=== PATIENT | female | born 1975 | race Caucasian/White ===

== ENCOUNTER 2020-01-07 17:02 | Emergency (ER) | payer OTHER, SELFPAY ==
--- NOTE | ~2020-01-07 | CT_ITS ---
EXAMINATION: CT abdomen pelvis w con DATE: 01/07/2020 18:31 INDICATION: Left upper quadrant abdominal pain. Flank pain. Nausea and vomiting. TECHNIQUE: Computed tomography (CT) of the abdomen and pelvis was performed with 100 mL Omnipaque 350 intravenous contrast. Automated exposure control and iterative reconstruction technique were employe d. The dose-length product was 719.38 mGy-cm. COMPARISON: CT abdomen and pelvis 11/29/2018 FINDINGS: The visualized portions of the lung bases demonstrate mild atelectasis. No pleural effusion . The heart size is normal. No pericardial effusion. There are cysts in the liver measuring up to 7 m m. The gallbladder, spleen, pancreas, adrenal glands, and kidneys are normal. There are no dilated lo ops of bowel. The appendix is normal. There are no pathologically enlarged lymph nodes. There is no f ree intraperitoneal fluid. There are fibroids in the uterus measuring up to 4.4 cm. There is severe l ower lumbar spondylosis. IMPRESSION: 1. Uterine fibroids. Reviewed, dictated and finalized at location A. STACKER IMPRESSION: 1. Uterine fibroids.
[2020-01-07 17:10] VITALS: BP 141/76; PULSE 69; RESP 16; TEMP 36.4; O2SAT 98
[2020-01-07 17:22] LABS: Basophils Percent Auto 0.3 % (0.2-1.2); Eosinophils Absolute Auto 0.4 K/mm3 (0-0.3); Eosinophils Percent Auto 6.6 % (0-4.4); Hematocrit 41.4 % (37.0-47.0); Immature Granulocyte Absolute 0.01 K/mm3 (0.00-0.031); Immature Granulocyte Percent A 0.1 % (0-0.5); Lymphocytes Absolute Auto 2.43 K/mm3 (0.9-3.2); Lymphocytes Percent Auto 36.2 % (18.3-44.2); Mean Corpuscular HGB Conc 33.8 g/dl (32-36); Mean Corpuscular Volume 79.9 fl (80-100); Mean Platelet Volume 9.1 fl (7.4-10.4); Monocytes Absolute Auto 0.4 K/mm3 (0.1-0.6); Monocytes Percent Auto 5.5 % (2.6-8.5); Neutrophils Absolute Auto 3.4 K/mm3 (1.3-6.7); Neutrophils Percent Auto 51.3 % (45.5-73.1); Platelet Count Result 221 k/mm3 (150-375); Red Blood Count 5.18 M/mm3 (4.2-5.4); Red Cell Distribution Width 14.4 % (11.5-14.5); White Blood Count 6.7 K/mm3 (4.5-10.0)
[2020-01-07 17:34] LABS: Alanine Aminotransferase 32 U/L (4-35); Albumin Level 4.3 g/dL (3.5-5.1); Alkaline Phosphatase 70 U/L (38-126); Anion Gap 9 mmol/L (8-16); Aspartate Amino Transferase 26 U/L (14-36); Bilirubin,Total 0.5 mg/dL (0.2-1.3); Blood Urea Nitrogen 15 mg/dL (7-17); Calcium 8.9 mg/dL (8.4-10.2); Carbon Dioxide 29 mmol/L (22-30); Chloride 104 mmol/L (98-107); Estimated CRCL calculation 103 ml/min; Estimated Glomerular Filt Rate > 60; Glucose 98 mg/dL (65-105); Lipase 96 U/L (23-300); Potassium 3.8 mmol/L (3.4-5.0); Sodium 142 mmol/L (137-145)
[2020-01-07 17:37] LABS: Add Urine Microscopic? YES; Appearance Urine Clear (Clear); Bilirubin Urine Negative (Negative); Blood Urine Negative (Negative); Color Urine Yellow (Yellow); Glucose Urine UA Negative (Negative); Ketones Urine Negative (Negative); Leukocyte Esterase Ur Negative LEU/UL (Negative); Mucus Urine Rare /lpf; Nitrate Urine Negative (Negative); Protein Urine Negative (Negative); Specific Grav Ur 1.024 (1.001-1.035); Squamous Epithelial Cell Urine Rare /hpf (Few)
[2020-01-07 17:57] VITALS: BP 145/76; PULSE 72; RESP 18; O2SAT 99
--- NOTE | 2020-01-07 19:35 | ED.GENADULT ---
HPI - General Adult General Chief complaint: Abdominal Pain Stated complaint: abd/back pain Time Seen by Provider: 01/07/20 17:30 Source: patient Mode of arrival: ambulatory Limitations: no limitations History of Present Illness HPI narrative: Patient presents with chief complaint of moving pains that are in her upper abdominal area and radiate downward as well as to her back. Patient states sometimes they are in her right and left side sometimes areas from the epigastric area. Patient denies fever, chills, nausea, vomiting or diarrhea associated with the pain. Patient denies having chest pain or shortness of breath. Patient states that she has had the symptoms for 2 to 3 weeks and her primary care initially thought that she had irritated her cartilage because it presented after she pushed a coffee table across the floor. Patient states sometimes the pain present when she is moving and other times it presents when she sitting still. Patient states that she has not had issues of muscle spasms or neuropathic pain before. She has been taking Aleve for the discomfort. Patient states other than having thyroid disorder she does not have any other medical symptoms. Patient states that she is having her thyroid medications adjusted and monitored closely by her primary care. Related Data Home Medications Medication Instructions Recorded Confirmed ascorbate calcium (vitamin C) 500 500 mg PO DAILY 08/21/19 08/21/19 mg tablet cetirizine 10 mg capsule 10 mg PO DAILY 08/21/19 08/21/19 cholecalciferol (vitamin D3) 25 1,000 unit PO DAILY cap 08/21/19 08/21/19 mcg (1,000 unit) capsule cyanocobalamin (vitamin B-12) 1,000 mcg PO DAILY 08/21/19 08/21/19 1,000 mcg capsule echinacea 380 mg capsule 380 mg PO DAILY 08/21/19 08/21/19 ferrous sulfate 325 mg (65 mg 325 mg PO DAILY 08/21/19 08/21/19 iron) tablet selenium 200 mcg capsule 200 mcg PO DAILY 08/21/19 08/21/19 Allergies Allergy/AdvReac Type Severity Reaction Status Date / Time ceftriaxone Allergy Unknown Verified 03/31/15 15:37 hydrocodone Allergy Unknown Verified 03/31/15 15:33 ketorolac Allergy Unknown Verified 03/31/15 15:36 metronidazole Allergy Unknown Verified 03/31/15 15:35 skin cleanser Allergy Unknown Hives Unverified 03/08/15 13:15 tramadol Allergy Unknown Verified 03/31/15 15:36 Review of Systems Review of Systems: Narrative: CONSTITUTIONAL: Denies fever, chills, or sweats. EYES: Denies visual changes, redness, or discharge. ENT: Denies rhinorrhea, congestion, sore throat, or otalgia. CARDIOVASCULAR: Denies chest pain, palpitations, or edema. RESPIRATORY: Denies cough or dyspnea. GASTROINTESTINAL: Reports abdominal pain, denies nausea, vomiting, or diarrhea. GENITOURINARY: Denies dysuria or hematuria. SKIN: Denies rash or itching. MUSCULOSKELETAL: Denies back pain, myalgia, or joint pain NEUROLOGIC: Denies headache, numbness, dizziness, or weakness. PSYCHIATRIC: Denies anxiety or depression. PMFSH Family History Family History Other Asthma Family history of anemia Family history of osteoporosis Family history of thyroid disease Hypertension Social History Social History Smoking status: Former smoker Smoking end date: 03/05/19 Alcohol intake: current Exam Narrative: Exam Narrative: GENERAL: Well-appearing, well-nourished, and in no acute distress. HEAD: Normocephalic, atraumatic. EYES: PERRLA and EOMI. ENT: Nares clear, no rhinorrhea or epistaxis. Mucous membranes moist. Oropharynx without tonsillar hypertrophy exudate or other lesions. Bilateral TMs pearly tabor nonbulging NECK: Supple. No adenopathy or masses. CHEST: Clear to auscultation. No respiratory distress. No wheezes rales or rhonchi HEART: Regular rate and rhythm. No murmur heard. Normal peripheral pulses. ABDOMEN: Soft, nontender, nondistended, normal acti
[2020-01-07 20:35] VITALS: BP 122/75; PULSE 61; RESP 18; O2SAT 100
== END 2020-01-07 20:36 | disposition home or self-care (01) ==
PROVIDERS: Emergency Medicine; Emergency Provider Emergency Medicine; PCP Internal Medicine Geriatric Medicine
DX: R10.10 Upper abdominal pain, unspecified (principal); Z87.891 Personal history of nicotine dependence; D25.9 Leiomyoma of uterus, unspecified
CPT/HCPCS: 36415; 74177; 80053; 81001; 81025; 83690; 85025; 96365; 99284; J0131; Q9967

== ENCOUNTER → 2020-03-12 13:22 | Outpatient (CLI) | payer OTHER, SELFPAY ==
--- NOTE | ~2020-03-12 | MM_ITS ---
EXAMINATION: MM screening [facility] BI w larissa HISTORY: Screening mammogram TECHNIQUE: Craniocaudal and mediolateral oblique 3-D tomosynthesis images were obtained and synthetic 2-D images were generated. CAD analysis was submitted and interpreted. COMPARISON: 01/03/2019, 01/02/2018, 12/28/2017, 11/17/2016 BREAST PARENCHYMAL COMPOSITION: The breasts are heterogeneously dense, which may obscure small masses . FINDINGS: There is no evidence of suspicious mass, calcification, or architectural distortion to sugg est malignancy in either breast. There has been no suspicious interval change. IMPRESSION: 1. No mammographic evidence of malignancy. 2. Recommend routine screening mammography in one year. BI-RADS Category 1: Negative Reviewed, dictated and finalized at location A. R HAND
== END ==
PROVIDERS: PCP Internal Medicine Geriatric Medicine; Visit Provider Obstetrics & Gynecology
DX: Z12.31 Encounter for screening mammogram for malignant neoplasm of breast (principal)
CPT/HCPCS: 77063; 77067

== ENCOUNTER → 2021-02-24 11:24 | Outpatient (CLI) | payer OTHER, SELFPAY ==
--- NOTE | ~2021-02-24 | US_ITS ---
EXAMINATION: US pelvic complete w TV DATE: 02/24/2021 12:58 INDICATION: Pelvic pain Comparison:12/04/2018 TECHNIQUE: Multiple transabdominal and endovaginal sonographic images of the pelvis performed. FINDINGS: The uterus measures 10.3 x 5.2 x 5.8 cm. Uterine fibroids, largest measuring 4.9 cm greates t dimension. The endometrial complex measures 16 mm. The right ovary measures 2.6 x 3.1 x 3.2 cm and the left ovary measures 2.1 x 1.8 x 1.8 cm. There is a 2.1 cm right ovarian cyst. There are small follicles in each ovary. Normal doppler signal in both o varies. There is no free fluid in the pelvis. There are no abnormal masses seen on either side. IMPRESSION: 1. Enlarged fibroid uterus with endometrial thickening measuring 16 mm. 2: Simple cyst of the right ovary measuring 2.1 cm maximum dimension. Reviewed, dictated and finalized at location A. TROLLER
== END ==
PROVIDERS: PCP Internal Medicine Geriatric Medicine; Visit Provider Obstetrics & Gynecology
DX: R10.2 Pelvic and perineal pain (principal); D25.9 Leiomyoma of uterus, unspecified; N83.201 Unspecified ovarian cyst, right side
CPT/HCPCS: 76830; 76856

== ENCOUNTER → 2021-04-14 15:08 | Outpatient (CLI) | payer OTHER, SELFPAY ==
--- NOTE | ~2021-04-14 | MM_ITS ---
EXAMINATION: MM screening [facility] BI w larissa HISTORY: Screening mammogram TECHNIQUE: Craniocaudal and mediolateral oblique 3-D tomosynthesis images were obtained and synthetic 2-D images were generated. CAD analysis was submitted and interpreted. COMPARISON: 03/12/2020, 01/03/2019, 01/02/2018, 12/28/2017 BREAST PARENCHYMAL COMPOSITION: The breasts are heterogeneously dense, which may obscure small masses . FINDINGS: There is no evidence of suspicious mass, calcification, or architectural distortion to sugg est malignancy in either breast. There has been no suspicious interval change. IMPRESSION: 1. No mammographic evidence of malignancy. 2. Recommend routine screening mammography in one year. BI-RADS Category 1: Negative Reviewed, dictated and finalized at location A. CHIEF
== END ==
PROVIDERS: PCP Internal Medicine Geriatric Medicine; Visit Provider Obstetrics & Gynecology
DX: Z12.31 Encounter for screening mammogram for malignant neoplasm of breast (principal)
CPT/HCPCS: 77063; 77067

== ENCOUNTER 2021-08-28 17:58 | Emergency (ER) | payer OTHER, SELFPAY ==
--- NOTE | ~2021-08-28 | XR_ITS ---
EXAM: XR finger 4th RT min 2V DATE: 08/28/2021 18:25 HISTORY: WASHING CAR,08/28/21. JAM RT 2ND DIGIT.PAIN DIP JT. . COMPARISON: None available. FINDINGS: Normal mineralization. No fracture or dislocation. Hyperextension of the fourth distal pha butcher. No lytic or blastic lesion. Joint spaces are maintained. No erosion or periosteal change. Soft tissues within normal limits. IMPRESSION: No acute osseous finding in the right fourth finger. The fourth DIP joint is held in exte nsion as can be seen with flexor tendon injury. Reviewed, dictated and finalized at location K. IMPRESSION: No acute osseous finding in the right fourth finger. The fourth DIP joint is held in extension as can be seen with flexor tendon injury.
[2021-08-28 18:05] VITALS: BP 122/78; PULSE 60; RESP 18; TEMP 37.1; O2SAT 98
--- NOTE | 2021-08-28 19:29 | ED.GENADULT ---
HPI - General Adult General Chief complaint: Extremity Injury, Upper Stated complaint: right hand finger injury Source: patient Mode of arrival: ambulatory Limitations: no limitations History of Present Illness HPI narrative: Patient presents for evaluation of an injury to the fourth digit of the right hand. She indicates she was washing her car just prior to arrival when she had abrupt onset pain in the fourth digit of the right hand. She believes she may have bumped part of her windshield washer. She felt nauseated and experienced a burning sensation in that digit. At rest her symptoms are not overly bothersome however she experiences considerable worsening of her symptoms with effort at flexing the DIP joint. She is right hand dominant. Related Data Home Medications Medication Instructions Recorded Confirmed azelastine 137 mcg (0.1 %) nasal spray intranasal 08/28/21 spray aerosol ergocalciferol (vitamin D2) 1,250 cap 08/28/21 mcg (50,000 unit) capsule levothyroxine 25 mcg tablet 1 tablet PO DAILY 08/28/21 08/28/21 Allergies Allergy/AdvReac Type Severity Reaction Status Date / Time ceftriaxone Allergy Unknown unknown Verified 07/28/21 16:48 hydrocodone Allergy Unknown unknown Verified 07/28/21 16:48 ketorolac Allergy Unknown unknown Verified 07/28/21 16:48 metronidazole Allergy Unknown unknown Verified 07/28/21 16:48 skin cleanser Allergy Unknown Hives Verified 07/28/21 16:48 tramadol Allergy Unknown unknown Verified 07/28/21 16:48 amoxicillin [From Augmentin] Allergy Hives Verified 08/28/21 18:50 clavulanic acid Allergy Hives Verified 08/28/21 18:50 [From Augmentin] Review of Systems Review of Systems: CONSTITUTIONAL: Denies fever, chills, or sweats. EYES: Denies visual changes, redness, or discharge. ENT: Denies rhinorrhea, congestion, sore throat, or otalgia. CARDIOVASCULAR: Denies chest pain, palpitations, or edema. RESPIRATORY: Denies cough or dyspnea. GASTROINTESTINAL: Denies abdominal pain, nausea, vomiting, or diarrhea. GENITOURINARY: Denies dysuria or hematuria. SKIN: Denies rash or itching. MUSCULOSKELETAL: Reports pain and decreased range of motion in the fourth digit of the right hand. Denies back pain NEUROLOGIC: Denies headache, numbness, dizziness, or weakness. PSYCHIATRIC: Denies anxiety or depression. [facility] Past Medical History Medical History Hyperthyroidism Surgical History Surgical History History of thyroid surgery Family History Family History Other Asthma Family history of anemia Family history of osteoporosis Family history of thyroid disease Hypertension Social History Social History Smoking status: Former smoker Smoking end date: 03/05/19 Alcohol intake: current Substance use: never Living arrangements: with family Gender identity (if verbalized by the patient): Female Sexual Orientation (if Verbalized by the Patient): Straight or Heterosexual Spiritual care concerns: No Exam Narrative: GENERAL: Well-appearing, well-nourished, and in no acute distress. HEAD: Normocephalic, atraumatic. EYES: PERRLA and EOMI. ENT: Nares clear, no rhinorrhea or epistaxis. Mucous membranes moist. Oropharynx without tonsillar hypertrophy exudate or other lesions. Bilateral TMs pearly tabor nonbulging NECK: Supple. No adenopathy or masses. No carotid bruits or JVD CHEST: Clear to auscultation. No respiratory distress. No wheezes rales or rhonchi HEART: Regular rate and rhythm. No murmur heard. Normal peripheral pulses. ABDOMEN: Soft, nontender, nondistended, normal active bowel sounds. EXTREMITIES: No point tenderness in the proximal, middle, distal phalanges of the fourth digit of the right hand nor over the DIP or P
== END 2021-08-28 19:10 | disposition home or self-care (01) ==
PROVIDERS: Emergency Provider Nurse Practitioner
DX: S69.91XA Unspecified injury of right wrist, hand and finger(s), initial encounter (principal); X58.XXXA Exposure to other specified factors, initial encounter; E05.90 Thyrotoxicosis, unspecified without thyrotoxic crisis or storm; Z87.891 Personal history of nicotine dependence
CPT/HCPCS: 29130; 73140; 99213; G0463

== ENCOUNTER → 2022-04-04 11:37 | Outpatient (CLI) | payer OTHER, SELFPAY ==
--- NOTE | ~2022-04-04 | MR_ITS ---
EXAMINATION: MR orbits face neck wo con DATE: 04/04/2022 12:16 INDICATION: Localized swelling, mass and lump, neck. TECHNIQUE: Magnetic resonance imaging (MRI) of the neck was performed without intravenous contrast. COMPARISON: chest CT 05/17/09, thyroid ultrasound 03/09/15 FINDINGS: There is mild mucosal thickening in the paranasal sinuses. There is symmetric subcutaneous fat stranding in the cheeks, which may be changes of a cosmetic procedure. There are changes of thyro idectomy. Anterior to the trachea and extending into the superior mediastinum, there is a 2.1 x 1.5 x 5.8 cm mass. There are no pathologically enlarged lymph nodes. There is a small left mastoid effusio n. IMPRESSION: 1. Mass anterior to the trachea and extending into the superior mediastinum with increase in size fro m 05/17/2009, most likely ectopic thyroid. Consider thyroid scintigraphy for confirmation. Reviewed, dictated and finalized at location A. PRESIDENT CLIENT SERVICES IMPRESSION: 1. Mass anterior to the trachea and extending into the superior mediastinum wit h increase in size from 05/17/2009, most likely ectopic thyroid. Consider thyroi d scintigraphy for confirmation.
== END ==
PROVIDERS: PCP Internal Medicine Geriatric Medicine; Visit Provider Internal Medicine Geriatric Medicine
DX: R22.1 Localized swelling, mass and lump, neck (principal)
CPT/HCPCS: 70540

== ENCOUNTER 2022-04-18 06:54 | Outpatient (CLI) | payer OTHER, SELFPAY ==
--- NOTE | ~2022-04-18 | NM_ITS ---
EXAMINATION: NM thyroid scan w uptake DATE: 04/19/2022 08:08 INDICATION: Neck mass. COMPARISON: Neck MRI 04/04/2022, ultrasound 03/09/15 TECHNIQUE: 0.496 mCi I-123 was administered orally. Scintigraphic images of the thyroid gland were o btained at 24 hours. Thyroid uptake was calculated by the technologist. FINDINGS: The uptake in the thyroidectomy bed is 0%. There is uptake in the mass anterior to the trachea and in the anterior mediastinum seen on the prior MRI confirming that the mass is ectopic thyroid. IMPRESSION: 1. Ectopic thyroid anterior to the trachea and extending into the superior mediastinum correlating w ith the MRI abnormality. Reviewed, dictated and finalized at location A. WELL PERFORATOR OPERATOR IMPRESSION: 1. Ectopic thyroid anterior to the trachea and extending into the superior med iastinum correlating with the MRI abnormality.
== END 2022-04-18 06:55 | disposition home or self-care (01) ==
PROVIDERS: PCP Internal Medicine Geriatric Medicine; Visit Provider Internal Medicine Geriatric Medicine
DX: R22.1 Localized swelling, mass and lump, neck (principal)
CPT/HCPCS: 78014; A9516

== ENCOUNTER → 2022-04-21 13:19 | Outpatient (CLI) | payer OTHER, SELFPAY ==
--- NOTE | ~2022-04-21 | MM_ITS ---
EXAMINATION: MM screening [facility] BI w larissa HISTORY: Screening mammogram TECHNIQUE: Craniocaudal and mediolateral oblique 3-D tomosynthesis images were obtained and synthetic 2-D images were generated. CAD analysis was submitted and interpreted. COMPARISON: April 14, 2021, March 12, 2020, January 03, 2019 bilateral screening mammogram examin ations BREAST PARENCHYMAL COMPOSITION: The breasts are heterogeneously dense, which may obscure small masses . FINDINGS: There is no evidence of suspicious mass, calcification, or architectural distortion to sugg est malignancy in either breast. There has been no suspicious interval change. IMPRESSION: 1. No mammographic evidence of malignancy. 2. Recommend routine screening mammography in one year. BI-RADS Category 1: Negative Reviewed, dictated and finalized at location A. E CASE MANAGER
== END ==
PROVIDERS: PCP Internal Medicine Geriatric Medicine; Visit Provider Obstetrics & Gynecology
DX: Z12.31 Encounter for screening mammogram for malignant neoplasm of breast (principal)
CPT/HCPCS: 77063; 77067

== ENCOUNTER 2022-08-02 01:09 | Day surgery (SDC) | payer OTHER, SELFPAY ==
[2022-07-25 09:16] VITALS: BMI 28.7
--- NOTE | 2022-07-25 09:27 | PC.NURSE ---
Report to the Outpatient Waiting Room, entrance under the green pavilion located off [facility], at time 1100 on date 08/02/22. Planned Procedure Time: 1300. Time changes happen often and if your time is changed the preop area will call you the afternoon before. - You and your visitor will be asked to self-screen and do not enter if you have any COVID symptoms. - A mask is optional within the hospital at this time. Patients may have clear liquids (water, carbonated beverages, clear teas, apple juice) until 3 hours prior to surgery with a maximum of 20 ounces. - No food from midnight until time of surgery Take the following medications with a SIP of water the morning of surgery: LEVOTHYROXINE DO NOT STOP ANY OF YOUR OTHER PRESCRIPTION MEDICATIONS PRIOR TO SURGERY EXCEPT THE FOLLOWING Medications to discontinue per physician: VITAMINS/SUPPLEMENTS Date to take last dose: 07/29/22 Please no make-up, nail portuguese, hairspray, perfume, deodorant, or body powder the day of surgery. No jewelry (including any body piercings) or valuables the day of surgery, leave them at home. Please take a shower or bath the night before, or the morning of, surgery with an antibacterial soap. Wear comfortable, loose fitting clothing. - Jewelry must be removed prior to entering the operating room. Rings and piercings that are not removed may be cut off. - The hospital will not accept responsibility for valuables. - Please leave all valuables, including medications, at home the day of surgery. If you are going home after surgery, a licensed catering driver must drive you home. - NO public transportation without another adult if you receive anesthesia. - We recommend that an adult stay with you for 24 hours following discharge. - We also recommend that you do not drive, make important decision, drink alcoholic beverages, or take any drugs that were not prescribed by your health care provider for at least 24 hours after your discharge time. Follow any additional instructions given to you from your surgeon. If you or anyone in your household have experienced Covid symptoms in the past week, please notify your surgeon or the nurse liaison at the phone number below for possible testing. Telephone instructions given to PT - INDRA ESPINOZA and asked if any additional questions and then verbalized understanding. Patient advised to call surgeon office or pre surgery nurse liaison [phone] if any additional questions.
[2022-08-02] VITALS (7 sets, daily range): BP systolic 119–148; BP diastolic 61–82; PULSE 52–65; RESP 14–16; TEMP 36.5; O2SAT 99
[2022-08-02] MEDS: ACETAMINOPHEN 500 MG TABLET 1000 MG PO (11:34)
--- NOTE | 2022-08-02 11:50 | PM.IMHP ---
H&P: HPI History of Present Illness Date/Time: 08/02/22 11:50 Chief Complaint: Irregular bleeding. Narrative: 47 y/o known to have a fibroid uterus. She has trouble with intermenstrual spotting. She has had two benign endometrial biopsies over the last few years. Ultrasound exam shows an EMC that is 1.07 cm thick. Her largest myoma is 5.9 cm in greatest dimension. There is a simple appearing right adnexal cyst measuring 2.6 cm. She has had a tubal ligation and does not desire future childbearing. She is interested in surgical management of her problem. Review of Systems Review of Systems: All systems reviewed & are unremarkable except as noted in HPI and below PMFSH Past Medical History Medical History Hyperthyroidism Surgical History Surgical History History of Achilles tendon repair History of back surgery History of thyroid surgery History of tubal ligation Family History Family History Other Asthma Family history of anemia Family history of osteoporosis Family history of thyroid disease Hypertension Social History Social History Smoking packs per day: 0.5 Smoking cigarettes per day: 10.0 Years smoked: 28 Smoking pack-years: 14.00 Smoking status: Former smoker Tobacco type: cigarettes Smoking end date: 03/05/18 Alcohol intake: current Drinks per week: 4 Substance use: never Substance use type: does not use Living arrangements: with family Gender identity (if verbalized by the patient): Female Sexual Orientation (if Verbalized by the Patient): Straight or Heterosexual Spiritual care concerns: No Meds Home Medications and Allergies Home Medications Medication Instructions Recorded Confirmed Type azelastine 137 mcg (0.1 %) nasal 1 spray intranasal DAILY 08/28/21 07/25/22 History spray aerosol Lactobacillus 1 cap PO DAILY 07/25/22 07/25/22 History acidophilus-Bifidobac.animalis 2.5 billion cell capsule (Daily Probiotic) calcium carbonate 600 mg calcium 600 mg PO DAILY 07/25/22 07/25/22 History (1,500 mg) tablet (Calcium) cetirizine 10 mg tablet (Zyrtec) 10 mg PO DAILY 07/25/22 07/25/22 History ergocalciferol (vitamin D2) 1,250 1,250 mcg PO WEEKLY 07/25/22 07/25/22 History mcg (50,000 unit) capsule fluticasone propionate 50 1 spray intranasal DAILY 07/25/22 07/25/22 History mcg/actuation nasal spray,suspension levothyroxine 137 mcg tablet 137 mcg PO DAILY 07/25/22 08/02/22 History magnesium 250 mg tablet 250 mg PO DAILY 07/25/22 07/25/22 History selenium 100 mcg tablet 100 mcg PO DAILY 07/25/22 07/25/22 History Allergies Allergy/AdvReac Type Severity Reaction Status Date / Time ceftriaxone Allergy Unknown Hives Verified 07/25/22 09:12 hydrocodone Allergy Unknown Itching Verified 07/25/22 09:12 ketorolac Allergy Unknown Hives Verified 07/25/22 09:12 metronidazole Allergy Unknown Hives Verified 07/25/22 09:12 skin cleanser Allergy Unknown Hives Verified 07/28/21 16:48 tramadol Allergy Unknown Itching Verified 07/25/22 09:12 amoxicillin [From Augmentin] Allergy Hives Verified 08/28/21 18:50 clavulanic acid Allergy Hives Verified 08/28/21 18:50 [From Augmentin] levofloxacin Allergy Dyspnea / Verified 07/25/22 09:12 SOB Penicillins Allergy Hives Verified 07/25/22 09:12 Vital Signs Vital Signs - 24 hr 08/02/22 11:41 Temperature 36.5 C Pulse Rate 55 L Respiratory Rate 16 Blood Pressure 119/82 Pulse Oximetry 99 Oxygen Delivery Room Air Exam Const: Orientation/consciousness: patient oriented x3 Other: Well-developed, well-nourished female in no acute distress. Neck: Thyroid: thyroid normal Lymphatic: no lymphadenopathy noted (in neck, axilla or inguinal nodes) Resp:
--- NOTE | 2022-08-02 11:56 | WPDHPUPDATE1 ---
History and Physical Update Update Date/Time: 08/02/22 11:56 History and Physical has been reviewed, including an updated exam of the patient. There are NO changes in the patient's condition. Risks, benefits, and alternatives have been discussed and questions answered. Patient agrees to proceed with procedure.
[2022-08-02] MEDS: LACTATED RINGERS 1,000 ML 30 ML IV CONT (12:07)
--- NOTE | 2022-08-02 12:53 | WPDANESEPPF ---
Anes - Initial Pre Proc Eval Procedure: Operation Date: 08/02/22 13:00 Proposed Procedures p Hysteroscopy Dilation and Curettage with Siomara Endometrial Ablation - Joseph Christianson MD Date/Time: 08/02/22 12:53 Surgeon: Joseph Christianson MD Pre Op Diagnosis: Irg Bleeding,Pelvic Pain Patient Data Age: 47 Gender: F Height: 1.73 m Weight: 86.2 kg Last Vital Signs Temp 36.5 C 08/02/22 11:41 Pulse 55 L 08/02/22 11:41 Resp 16 08/02/22 11:41 BP 119/82 08/02/22 11:41 Pulse Ox 99 08/02/22 11:41 O2 Del Method Room Air 08/02/22 11:41 Allergies Allergy/AdvReac Type Severity Reaction Status Date / Time ceftriaxone Allergy Unknown Hives Verified 07/25/22 09:12 hydrocodone Allergy Unknown Itching Verified 07/25/22 09:12 ketorolac Allergy Unknown Hives Verified 07/25/22 09:12 metronidazole Allergy Unknown Hives Verified 07/25/22 09:12 skin cleanser Allergy Unknown Hives Verified 07/28/21 16:48 tramadol Allergy Unknown Itching Verified 07/25/22 09:12 amoxicillin [From Augmentin] Allergy Hives Verified 08/28/21 18:50 clavulanic acid Allergy Hives Verified 08/28/21 18:50 [From Augmentin] levofloxacin Allergy Dyspnea / Verified 07/25/22 09:12 SOB Penicillins Allergy Hives Verified 07/25/22 09:12 Home Medications Medication Instructions Recorded Confirmed Type azelastine 137 mcg (0.1 %) nasal 1 spray intranasal DAILY 08/28/21 07/25/22 History spray aerosol Lactobacillus 1 cap PO DAILY 07/25/22 07/25/22 History acidophilus-Bifidobac.animalis 2.5 billion cell capsule (Daily Probiotic) calcium carbonate 600 mg calcium 600 mg PO DAILY 07/25/22 07/25/22 History (1,500 mg) tablet (Calcium) cetirizine 10 mg tablet (Zyrtec) 10 mg PO DAILY 07/25/22 07/25/22 History ergocalciferol (vitamin D2) 1,250 1,250 mcg PO WEEKLY 07/25/22 07/25/22 History mcg (50,000 unit) capsule fluticasone propionate 50 1 spray intranasal DAILY 07/25/22 07/25/22 History mcg/actuation nasal spray,suspension levothyroxine 137 mcg tablet 137 mcg PO DAILY 07/25/22 08/02/22 History magnesium 250 mg tablet 250 mg PO DAILY 07/25/22 07/25/22 History selenium 100 mcg tablet 100 mcg PO DAILY 07/25/22 07/25/22 History Patient hx anesthesia problems: post op nausea/vomiting and other (awareness) Family hx anesthesia problems: none Results Review: All pre-operative results and documents have been reviewed as part of the pre-operative evaluation. PMFSH Past Medical History Medical History Hyperthyroidism Surgical History Surgical History History of Achilles tendon repair History of back surgery History of thyroid surgery History of tubal ligation Family History Family History Other Asthma Family history of anemia Family history of osteoporosis Family history of thyroid disease Hypertension Social History Social History Smoking packs per day: 0.5 Smoking cigarettes per day: 10.0 Years smoked: 28 Smoking pack-years: 14.00 Smoking status: Former smoker Tobacco type: cigarettes Smoking end date: 03/05/18 Alcohol intake: current Drinks per week: 4 Substance use: never Substance use type: does not use Living arrangements: with family Gender identity (if verbalized by the patient): Female Sexual Orientation (if Verbalized by the Patient): Straight or Heterosexual Spiritual care concerns: No Anes - Eval Final PreProcedure Day of Procedure 08/02/22 12:53 Patient weight: overweight Heart: regular rate and rhythm Lungs: clear to auscultation Airway: Mallampati scale class II Neurological: alert and oriented Last oral intake: >/= 8 hours ASA classification: II Emergent: no Anesthetic plan: proceed Anesthesia type and
[2022-08-02] MEDS: SCOPOLAMINE 1.5 MG PATCH TRANSDERM (12:57)
[2022-08-02] MEDS: LIDOCAINE HCL 1% LOCAL INJ 20 ML VIAL 10 ML INFILTRATE (13:55)
--- NOTE | 2022-08-02 14:14 | W.PM.PROC2 ---
Procedure Note - Detailed Date of Procedure 08/02/22 Pre-op Diagnosis Metrorrhagia Post-op Diagnosis Same Procedure Performed Hysteroscopy Dilation and sharp curettage Endometrial ablation Surgeon Joseph Christianson MD Anesthesia MAC and Local (1% lidocaine paracervical block) Findings Unremarkable endometrium. Both tubal ostia seen. Uterus sounded to 9.5 cm with a cervical length of 3.5 cm, giving a subtracted uterine cavity length of 6 cm. Description of Procedure The patient was taken to the operating room where she was prepared and draped in the usual sterile fashion in the dorsal lithotomy position. The bladder was drained with a red rubber catheter. A sterile speculum was placed into the vagina. The anterior lip of the cervix was grasped with single-tooth tenaculum. Ten mL of 1% lidocaine was administered in a paracervical block. The cervix was then gently dilated using Hegar dilators until an 8 mm dilator could be passed. Hysteroscopy was performed using sterile saline as a distention medium. Findings are as noted above. Sharp curettage was then performed, and endometrial curettings were collected on a Telfa pad and passed off to be sent to pathology. Finally, the the Siomara device was advanced and endometrial ablation commenced without difficulty. The device was withdrawn and a second look was taken using the hysteroscope. Excellent coverage of the endometrial cavity was noted. The tenaculum was removed. Hemostasis was excellent. Sponge, lap, needle and instrument counts were correct. The patient was awakened and taken to the recovery room in stable condition. I was present and scrubbed through the entire procedure. Implants None Estimated Blood Loss 5 Drains No Packing No Pathology Yes (Endometrial curettings) Complications None Condition Stable Disposition PACU
[2022-08-02] MEDS: fentaNYL CITRATE INJ (*CRX) 100 MCG/2 ML VIAL 25 MCG IV PUSH ×3 (14:26→14:50)
[2022-08-02] MEDS: oxyCODONE HCL (*CRX) 5 MG TAB IR PO (15:12)
== END 2022-08-02 16:05 | disposition home or self-care (01) ==
PROVIDERS: PCP Internal Medicine Geriatric Medicine; Visit Provider Obstetrics & Gynecology
PROC: 0U5B8ZZ Destruction of Endometrium, Via Natural or Artificial Opening Endoscopic (ICD-10-PCS; CPT 58563; principal; 2022-08-02 13:00)
DX: N92.1 Excessive and frequent menstruation with irregular cycle (principal); D25.9 Leiomyoma of uterus, unspecified; N83.201 Unspecified ovarian cyst, right side; Z87.891 Personal history of nicotine dependence
CPT/HCPCS: 58563; 88305; A9270; J1100; J2250; J2405; J2704; J3010; J7120

== ENCOUNTER 2023-03-26 15:04 | Outpatient (CLI) | payer OTHER, SELFPAY ==
[2023-03-26 19:14] LABS: Hemoglobin A1C 5.2 % (<5.7)
[2023-03-26 19:33] LABS: Thyroid Stimulating Hormone Reflex 0.447 uIU/mL (0.465-4.68)
[2023-03-26 20:01] LABS: Free T4 Free Thyroxine Reflex 1.48 ng/dL (0.78-2.19)
[2023-03-26 20:42] LABS: Total Triiodothyronine (T3) 1.13 NG/ML (0.97-1.69)
== END 2023-03-26 15:05 | disposition home or self-care (01) ==
LOC: ANHASCLAB 15:11 → ANHGOSHLAB 15:31
PROVIDERS: PCP Internal Medicine Geriatric Medicine
DX: Z13.29 Encounter for screening for other suspected endocrine disorder (principal); R53.81 Other malaise; R53.83 Other fatigue; Z68.29 Body mass index [BMI] 29.0-29.9, adult
CPT/HCPCS: 36415; 83036; 84439; 84443; 84480

== ENCOUNTER 2023-04-06 14:38 | Outpatient (CLI) | payer OTHER, SELFPAY ==
--- NOTE | ~2023-04-06 | CT_ITS ---
EXAMINATION: CT abdomen pelvis w con DATE: 04/06/2023 15:09 INDICATION: Abdominal pain TECHNIQUE: Computed tomography (CT) of the abdomen and pelvis was performed with 100 CC Omnipaque 350 intravenous contrast. Automated exposure control and iterative reconstruction technique were employe d. Exam dose: 694.13 mGy-cm total exam DLP. COMPARISON: 01/2020 CT abdomen pelvis 02/24/2021 complete pelvic ultrasound FINDINGS: The lung bases are clear of consolidation. Normal heart size. No pericardial or pleural eff usion. Multiple scattered hepatic hypoenhancing lesions, measuring under 8 mm maximal dimension, likely hepa tic cysts or other benign process. The gallbladder appears normal. No bile duct or pancreatic duct dilatation. No pancreatic mass lesion or calcification. Normal splenic size. Normal morphology of the right adrenal gland. Approximately 7 x 12 mm left adrenal nodule with attenu ation of 46 Hounsfield units, likely a small adrenal adenoma. No renal mass lesion or urinary tract calculus or hydroureteronephrosis. The urinary bladder appears normal. Normal caliber of the abdominal aorta. No intraperitoneal or retroperitoneal or pelvic mass lesion or adenopathy or ascites. There is lobular uterine enlargement consistent with fibroid change. Normal appendix. There is mild sigmoid colon diverticulosis; no CT evidence of diverticulitis. No bow el obstruction, bowel wall thickening, pneumatosis or intraperitoneal free air is detected. Severe degenerative disc disease with mild retrolisthesis at L5-S1. No suspicious osteolytic or osteoblastic lesions are noted. IMPRESSION: Multiple hepatic cysts Probable small left adrenal adenoma Normal appendix Mild sigmoid colon diverticulosis; no evidence of diverticulitis Enlarged fibroid uterus, with interval enlargement of a fibroid from approximately 4.4 cm on 01/2020 to 6 cm currently Reviewed, dictated and finalized at [facility]. Reviewed, dictated and finalized at [facility]. 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
== END 2023-04-06 14:39 | disposition home or self-care (01) ==
LOC: ANHIMG 14:41
PROVIDERS: PCP Internal Medicine Geriatric Medicine; Visit Provider Internal Medicine Geriatric Medicine
DX: K42.0 Umbilical hernia with obstruction, without gangrene (principal); K76.89 Other specified diseases of liver; E27.9 Disorder of adrenal gland, unspecified; K57.30 Diverticulosis of large intestine without perforation or abscess without bleeding; D25.9 Leiomyoma of uterus, unspecified
CPT/HCPCS: 74177; Q9967

== ENCOUNTER → 2023-04-24 12:07 | Outpatient (CLI) | payer OTHER, SELFPAY ==
--- NOTE | ~2023-04-24 | MM_ITS ---
EXAMINATION: MM screening jana BI w larissa HISTORY: Screening TECHNIQUE: Craniocaudal and mediolateral oblique 3-D tomosynthesis images were obtained and synthetic 2-D images were generated. CAD analysis was submitted and interpreted. COMPARISON: Comparison to multiple prior studies sequentially, with oldest reviewed study dated 12/04. BREAST PARENCHYMAL COMPOSITION: Dense: The breasts are heterogeneously dense, which may obscure small masses FINDINGS: There is no evidence of suspicious mass, calcification, or architectural distortion to sugg est malignancy in either breast. There has been no suspicious interval change. IMPRESSION: 1. No mammographic evidence of malignancy. 2. Recommend routine screening mammography in one year. BI-RADS Category 1: Negative Reviewed, dictated and finalized at location [facility]. 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
== END ==
PROVIDERS: PCP Internal Medicine Geriatric Medicine; Visit Provider Obstetrics & Gynecology
DX: Z12.31 Encounter for screening mammogram for malignant neoplasm of breast (principal)
CPT/HCPCS: 77063; 77067

== ENCOUNTER → 2023-04-24 14:05 | Outpatient (CLI) | payer OTHER, SELFPAY ==
--- NOTE | ~2023-04-24 | XR_ITS ---
EXAMINATION: XR shoulder LT min 2V DATE: 04/24/2023 14:29 INDICATION: Left shoulder pain. TECHNIQUE: 4 views of left shoulder were obtained. COMPARISON: None. FINDINGS: Bone alignment is normal. No fracture. Glenohumeral joint is normal. There is mild acromioc lavicular joint osteoarthritis. IMPRESSION: 1. Mild left acromioclavicular joint osteoarthritis. Reviewed, dictated and finalized at location [facility]. 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
== END ==
PROVIDERS: PCP Internal Medicine Geriatric Medicine; Visit Provider Internal Medicine Geriatric Medicine
DX: M19.012 Primary osteoarthritis, left shoulder (principal)
CPT/HCPCS: 73030

== ENCOUNTER 2023-05-04 13:30 | Outpatient (RCR) | payer OTHER, SELFPAY ==
--- NOTE | 2023-03-06 09:05 | OPREHPOC ---
Outpatient Therapy Plan of Care This is a Multidisciplinary Plan of Care that may contain components documented by all disciplines (PT, OT, and ST.) PT Problem 1 PT Problem #1 Knowledge Deficit PT Goal 1 Goal 1* indep with HEP 2* pt demonstrate correct posture with exercises PT Problem 2 PT Problem #2 Pain PT Goal 1 Goal 1* pain rating at worst of 6/10 2* self assessment Quick DASH score of 20% limitation 3* pt report with sleeping, awaken 2x/night due to shoulder pain PT Problem 3 PT Problem #3 Impaired Flexibility PT Goal 1 Goal pt perform without an increase in pain, to improve mobility and self care ability: 1* cervical rotation to R 2* L shoulder IR increase AROM 3* cervical rotation to R 55' 4* L shoulder IR, reach behind back, fingers to lower scapula PT Problem 4 PT Problem #4 Impaired Strength PT Goal 1 Goal increase L shoulder strength for caring for infant and home tasks: 1* pt stand with correct shoulder position 2* standing 5 reps L shoulder motions with 3# hand wt
--- NOTE | 2023-03-06 09:05 | PTOPEVAL1 ---
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, caring for- feeding; Reported Pain Level Pain Score Self Report Additional Pain Score Comments pain range in the past week: 1-10/10; with high pain 10/10, last few minutes then gone; pain spot changes, anterior, lateral shoulder; inconsistent with motions that cause pain increase pain: reaching up to hug, lifting and caring for baby, putting jacket or shirt on decrease pain: rest, hold arm at side; naproxen PRN, over the counter/aleve no heat, ice used; also have neck pain since thyroid surgery and surgical positioning- posterior neck; awaken from sleep 5-6 x/night to reposition due to shoulder pain Assessment PT Clinical Summary Lisa has the diagnosis of L shoulder pain. She reports onset with activity of caring for . Pain is increased with inconsistant motions; sleeping is disrupted due to pain. Quick DASH score of 32% functional limitation in activity. She is active and works from home--computer and phone work. Her history includes cervical pain since thyroid surgery x2, with abnormal surgical positioning of neck. With the evaluation, she has decreased cervical rotation to R with painful motion; shoulder motions of IR and ER are painful, with decreased IR ROM. There is tightness and tenderness over L upper traps and anterior GH joint. In standing, she has rounded shoulder position with forward head. Skilled PT services are indicated for treatment of L shoulder impingement syndrome: modalities for pain and spasms, with th
--- NOTE | 2023-03-26 11:18 | PCPTNOTE ---
Patient Cancelled secondary to Weather conditions.
--- NOTE | 2023-04-03 12:36 | PTOPPROG ---
Assessment and note entered by Buster Ogden, PT Evaluation Information Assessment Status Progress Diagnosis L shoulder pain, vestibular Onset Oct 2022 Subjective Information Reports that all of the neurological symptom that she has been having in her neck are seemingly resolved. Mobility feels better and longer having paresthesia's affecting quality of life. She has been able to sleep for the first time in months. Still concerned now about lingering shoulder issues and we are in agreement to address capsular mobility and weakness moving forward. Assessment PT Clinical Summary Patient has shown improved pain symptoms in cervical spine and absence of paresthesia. Continues to present with restricted shoulder capsule coupled with weakness and will be the emphasis of treatment moving forward. We need to emphasize shoulder girdle strengthening, rotator cuff strengthening, and gross shoulder capsule ROM for group home pain relief and functional improvement. Plan of Care Interventions Electrical Stimulation,Hot Pack/Cold Pack,Manual Therapy,Patient/Caregiver Educati,Therapeutic Activities,Therapeutic Exercise,Ultrasound,Other Other Interventions dry needling, taping PT Services Indicated Yes Treatment Frequency and 2x/week for 8 visits Duration These treatments will address the objective and functional deficits as defined above. The patient will be advanced safely and appropriately in order for the patient to progress towards his/her prior level of function. Additional exercises will be introduced and as well as a comprehensive home exercise program upon discharge, if needed, ?to ensure carryover of functional gains achieved in the clinic. This treatment plan has been reviewed and agreement upon by the patient.
--- NOTE | 2023-04-03 12:36 | OPREHPOC ---
Outpatient Therapy Plan of Care This is a Multidisciplinary Plan of Care that may contain components documented by all disciplines (PT, OT, and ST.) PT Problem 1 PT Problem #1 Knowledge Deficit PT Goal 1 Goal 1* indep with HEP 2* pt demonstrate correct posture with exercises Progress Met PT Problem 2 PT Problem #2 Pain PT Goal 1 Goal 1* pain rating at worst of 6/10 2* self assessment Quick DASH score of 20% limitation 3* pt report with sleeping, awaken 2x/night due to shoulder pain Target Visit 16 Progress Partially Met PT Problem 3 PT Problem #3 Impaired Flexibility PT Goal 1 Goal pt perform without an increase in pain, to improve mobility and self care ability: 1* cervical rotation to R 2* L shoulder IR increase AROM 3* cervical rotation to R 55' 4* L shoulder IR, reach behind back, fingers to lower scapula Target Visit 16 Progress Partially Met PT Goal 2 Goal Improve L shoulder active reach to a consistent 170 degrees to improve overhead lifting and ADL performance Target Visit 16 Comment New Goal PT Problem 4 PT Problem #4 Impaired Strength PT Goal 1 Goal increase L shoulder strength for caring for and home tasks: 1* pt stand with correct shoulder position 2* standing 5 reps L shoulder motions with 3# hand wt PT Goal 2 Goal Improve L shoulder external rotation strength to 4 +/5 to improve stability and functional activity performance. Target Visit 16 Comment New Goal
--- NOTE | 2023-05-04 16:29 | PTOPDC ---
Assessment and note entered by Buster Ogden, PT Evaluation Information Assessment Status Discharge Diagnosis L shoulder pain, vestibular Onset Oct 2022 Subjective Information Reports that overall shoulder is doing a little better. She has not seen full resolution and is having some pain with reaching and lifting. Reports that she has been consistently doing her home exercises with no concerns at this time. Reported Pain Level Pain Score 2: Self Report Assessment PT Clinical Summary Patient has made improvement in cervical mobility, shoulder mobility, and shoulder strength. She still shows room for improvement and will try through HEP to promote capsular stability and shoulder ROM. I recommended possibility of cortisone injection coupled with continued HEP. Return to therapy if needed. Plan of Care PT Services Indicated D/C to HEP
--- NOTE | 2023-05-04 16:30 | OPREHPOC ---
Outpatient Therapy Plan of Care This is a Multidisciplinary Plan of Care that may contain components documented by all disciplines (PT, OT, and ST.) PT Problem 1 PT Problem #1 Knowledge Deficit PT Goal 1 Goal 1* indep with HEP 2* pt demonstrate correct posture with exercises Progress Met PT Problem 2 PT Problem #2 Pain PT Goal 1 Goal 1* pain rating at worst of 6/10 2* self assessment Quick DASH score of 20% limitation 3* pt report with sleeping, awaken 2x/night due to shoulder pain Target Visit 16 Progress Partially Met Comment Improved sleeping. Did not Reach QuickDASH score. PT Problem 3 PT Problem #3 Impaired Flexibility PT Goal 1 Goal pt perform without an increase in pain, to improve mobility and self care ability: 1* cervical rotation to R 2* L shoulder IR increase AROM 3* cervical rotation to R 55' 4* L shoulder IR, reach behind back, fingers to lower scapula Target Visit 16 Progress Partially Met PT Goal 2 Goal Improve L shoulder active reach to a consistent 170 degrees to improve overhead lifting and ADL performance Target Visit 16 Progress Met PT Problem 4 PT Problem #4 Impaired Strength PT Goal 1 Goal increase L shoulder strength for caring for infant and home tasks: 1* pt stand with correct shoulder postion 2* standing 5 reps L shoulder motions with 3# hand wt Target Visit 16 Progress Partially Met PT Goal 2 Goal Improve L shoulder external rotation strength to 4 +/5 to improve stability and functional activity performance. Target Visit 16 Progress Partially Met
== END 2023-05-07 08:44 | disposition home or self-care (01) ==
LOC: ANHGOSHPT 13:30
PROVIDERS: PCP Internal Medicine Geriatric Medicine; Visit Provider Internal Medicine Geriatric Medicine
DX: M25.512 Pain in left shoulder (principal); H81.10 Benign paroxysmal vertigo, unspecified ear
CPT/HCPCS: 97110; 97140; 97162; 97530

== ENCOUNTER 2024-01-17 15:14 | Outpatient (CLI) | payer OTHER, SELFPAY ==
--- NOTE | ~2024-01-17 | MR_ITS ---
MRI of the left shoulder Technique: Axial proton-density fat-sat images, coronal proton density fat-sat and T2 fat-sat images, and sagittal T1-weighted and T2 fat-sat images were acquired. Clinical History: Pain Findings: There is minimal AC joint degenerative change, with minimal volume productive change at the joint. Coracoclavicular, coracoacromial, and coracohumeral ligaments are intact. Supraspinatus and infraspinatus tendons are intact, with mild to moderate tendinosis. No partial or f ull-thickness tear seen. Subscapularis tendon intact, with mild to moderate tendinosis. Tendon of jair g head of the biceps is intact. No labral tear seen. Inferior glenohumeral ligament is intact. No significant degenerative change or effusion of the gleno humeral joint. No fluid distention of the subacromial/subdeltoid bursa. No muscle atrophy or edema. Impression: Rotator cuff tendinosis, as above. No partial or full-thickness tear. Minimal AC joint degenerative change. Reviewed, dictated and finalized at [facility]. S SUPPORT REPRESENTATIVE Impression: Rotator cuff tendinosis, as above. No partial or full-thickness tear. Minimal AC joint degenerative change.
== END 2024-01-17 15:15 | disposition home or self-care (01) ==
LOC: GOSHIMG 15:14
PROVIDERS: PCP Internal Medicine Geriatric Medicine; Visit Provider Physician Assistant
DX: S43.432A Superior glenoid labrum lesion of left shoulder, initial encounter (principal); M75.22 Bicipital tendinitis, left shoulder; M75.82 Other shoulder lesions, left shoulder; M19.012 Primary osteoarthritis, left shoulder; X58.XXXA Exposure to other specified factors, initial encounter
CPT/HCPCS: 73221

== ENCOUNTER 2024-04-25 07:23 | Outpatient (CLI) | payer OTHER, SELFPAY ==
--- NOTE | ~2024-04-25 | MM_ITS ---
EXAMINATION: MM screening jana BI w larissa HISTORY: Screening TECHNIQUE: Craniocaudal and mediolateral oblique 3-D tomosynthesis images were obtained and synthetic 2-D images were generated. CAD analysis was submitted and interpreted. COMPARISON: Comparison to multiple prior studies sequentially, with oldest reviewed study dated 10/2020. BREAST PARENCHYMAL COMPOSITION: Dense: The breasts are heterogeneously dense, which may obscure small masses FINDINGS: There is no evidence of suspicious mass, calcification, or architectural distortion to sugg est malignancy in either breast. There has been no suspicious interval change. IMPRESSION: 1. No mammographic evidence of malignancy. 2. Recommend routine screening mammography in one year. BI-RADS Category 1: Negative Reviewed, dictated and finalized at location B. N BUILDER LOOM CONTROL
--- OUTSIDE RECORDS SUMMARY | 2024-04-25 07:31 | XMS_ITS | Encounter Summary ---
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 Name Role Phone Iraj Rogers MD Primary Care Provider + Pete Kim MD Unavailable [phone] Encounter Details Date Type Department Care Team (Late st Contact Info) Description 04/26/2022 Telephone [facility] [address] [facility] 5th [place] [address] Pete Kim MD [address] [place] [address] Social History Tobacco Use Types Packs/Day Years Used Date Smoking Tobacco: Former Cigarettes 0.8 29 1 991 - 03/07/2019 Smokeless Tobacco: Never Alcohol Use Standard Drinks/Week Comments Yes 0 (1 standard drink = 0.6 oz pur e alcohol) AUDIT-C Answer Date Recorded Q1: How often do you have a drink containing alc ohol? 2-4 times a month 04/27/2022 Q2: How many drinks containi ng alcohol do you have on a typical day when you are drinking? 5 or 6 04/27/2022 Q3: How often do you have si x or more drinks on one occasion? Monthly 04/27/2022 Comments No Sex and Gender Information Value Date Recorded Sex Assigned at Not on file Legal Sex Female 5:44 AM ENROLLMENT MANAGEMENT MANAGER Gender Identity Female 03/24/2020 10:33 AM ENROLLMENT MANAGEMENT MANAGER Sexual Orientation Straight 03/24/2020 10 :33 AM ENROLLMENT MANAGEMENT MANAGER documented as of this encounter Functional Status * Audit-C Score Answer Date of Assessment Author 6 04/27/2022 8:45 AM Charisse Dey RN * Question Answer Date of Assessment Author Q1: How often do you have a drink containing alcohol? 2-4 times a month 04/27/2022 8:45 AM Charisse Dey RN Q2: How many drinks containing alcohol do you have on a typical day when you are drinking? 5 or 6 04/27/2022 8:45 AM Charisse Dey RN Q3: How often do you have six or more drinks on one occasion? Monthly 04/27/2022 8:45 AM Charisse Dey RN documented as of this encounter Plan of Treatment Not on file documented as of this encounter Visit Diagnoses Not on filedocumented in this encounter Additional Health Concerns Infection Onset Date Last Indicated Resolved Time COVID: Suspected 11/07/2023 11/07/2023 11/07/2023 6:03 PM CDT COVID: Suspected 02/26/2024 02/26/2024 02/26/2024 9:17 AM ENROLLMENT MANAGEMENT MANAGER documented as of this encounter Care Teams Dairy Cattle Farmer Relationship Specialty [place] [address] [address] [place] [address] PCP - General 05/16/11 Pete iKm MD [address] [place] [address] Referring Physician Surgical Oncology 05/09/22 documented as of this encounter
--- OUTSIDE RECORDS SUMMARY | 2024-04-25 07:31 | XMS_ITS | Referral Summary ---
Author Organization [facility] Address [address] [place] [address] Care Team Providers Care Training Consultant Name Role Phone Unavailable Primary Care Provider Unavailabl e Source Comments [facility],non-owned Affiliates and Associated Physician Practices is amultiple site organization consisting of ambulatory clinics and hospital sitesin [place] and [place]. This disclosure is being madepursuant to the Care Everywhere program and may not contain all information available regarding this patient. Last updated 17.[facility] Medications * Be aware that medications may not be up to date on this document. Alwaysverify current medications with the patient. Medication Sig Dispensed Refills Start Date End Date Status Selenium 200 MCG Take 1 tablet by mouth DAILY. 07/26/2016 Active ferrous sulfate 325 (65 FE) MG tablet Take 1 tablet by mouth DAILY. 07/26/2016 Active Ascorbic Acid (VITAMIN C) 100 MG Take 1 tablet by mouth DAILY. 07/26/2016 Active Cholecalciferol (VITAMIN D3) 47958 UNITS Take 1 capsule by mouth DAILY. 07/26/2016 Active Cyanocobalamin (B-12) 1000 MCG Take 1 tablet by mouth DAILY. 07/26/2016 Active methIMAzole (TAPAZOLE) 5 MG tablet 1 06/21/2016 Active cetirizine (ZYRTEC ALLERGY) 10 MG gel capsule Take 1 tablet by mouth DAILY. 07/26/2016 Active Active Problems Problem Noted Date Diagnosed Date Upper eyelid retraction of left eye 07/26/2016 Other disorders of pituitary gland 07/26/2016 Thyrotoxicosis with diffuse goiter and without thyroid storm 07/26/2016 Social History Tobacco Use Types Packs/Day Years Used Date Smoking Tobacco: Every Day Smokeless Tobacco: Never Alcohol Use Standard Drinks/Week Comments No 0 (1 standard drink = 0.6 oz pur e alcohol) Sex and Gender Information Value Date Recorded Sex Assigned at Not on file Gender Identity Not on file Sexual Orientation Not on file Plan of Treatment Not on file [place] [address]
--- OUTSIDE RECORDS SUMMARY | 2024-04-25 07:32 | XMS_ITS | Clinical Summary ---
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 Name Role Phone Iraj Rogers MD Primary Care Provider + Estella Kim MD Unavailable [phone] Allergies Active Allergy Reactions Criticality Noted Date Comments Amoxicillin-Pot Clavulanate Itching High 01/22/2021 Head to toe sever itching Ceftriaxone Hives Medium 12/24/2019 Hydrocodone Hives Medium 12/24/2019 Ketorolac Hives Medium 12/24/2019 Levofloxacin Shortness of breath High Metronidazole Hives Medium Penicillins Hives Medium 07/18/2022 Tramadol Hives Medium 12/24/2019 Medications cetirizine (ZyrTEC) 10 mg tablet take 1 tablet (10MG) by oral route every day 0 2 Active acidophilus-pec tin, citrus 100 million cell-10 mg capsuleIndicati ons:health Take 1 capsule by mouth every morning Active fluticasone propionate (FLONASE) 50 mcg/actuation nasal sprayIndication s:Allergic Rhinitis 1 spray every morning 1 Active ergocalciferol (VITAMIN D) 50,000 unit capsuleIndicati ons:Vitamin D Deficiency 1 capsule (50,000 Units total) once a week Sundays 2 Active carboxymethylce llulose (REFRESH PLUS) 0.5 % dropperetteIndi cations:Dry Eye Administer 1 drop into both eyes every morning Active levothyroxine (SYNTHROID) 100 mcg tablet Take 1 tablet (100 mcg total) by mouth daily 90 tablet 3 4 05/11/19 25 Active azelastine (ASTELIN) 137 mcg (0.1 %) nasal spray USE 1 SPRAY IN EACH NOSTRIL TWICE DAILY DIRECTED 30 mL 6 4 Active selenium 200 mcg tablet 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 Active calcium aln-hzu-W9-Zn-c op-rashel 250 mg-40 mg- 125 unit-3.75mg tablet Take by mouth daily Active tirzepatide, weight loss, (ZEPBOUND) 5 mg/0.5 mL solution vial Inject 0.5 mL (5 mg total) under the skin every 7 days Active Active Problems Problem Noted Date Diagnosed Date Cervical radiculopathy 03/24/2024 Cervical spinal stenosis 03/24/2024 Subacromial bursitis of left shoulder joint 03/06 Hyperthyroidism 05/09/2022 Subclinical hyperthyroidism 12/06/2021 Overweight 12/06/2021 Amenorrhea 03/29/2021 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 [address] [place] [phone] Floyd Chiang MD Cervical spinal stenosis [M48.02] (Primary Dx); Cervical radiculopathy Discharge Disposition: Discharge to home or self care 03/24/2024 1:13 PM BRUSHER OPERATOR - 03/24/2024 11:59 PM BRUSHER OPERATOR Hospital Encounter [facility] [address] [place] [phone] Floyd Chiang MD Cervical spinal stenosis (Primary Dx); Cervical radiculopathy; Subacromial bursitis of left shoulder joint Discharge Disposition: Discharge to home or self care 02/28/2024 Telephone [facility] [place] [address] [place] [address] Isaura Cuello MA 02/26/2024 9:20 AM BRUSHER OPERATOR - 02/26/2024 11:59 PM BRUSHER OPERATOR Hospital Encounter [facility] [address] [place] [address] Sore throat Discharge Disposition: Discharge to home or self care 02/26/2024 8:45 AM BRUSHER OPERATOR Office Visit [facility] [place] [address] [place] [address] Diane Walsh NP Sore throat (Primary Dx); Upper respiratory tract infection, unspecified type; Pharyngitis, unspecified etiology 02/19/2024 Telephone [facility] [address] [facility] [address] [place] [phone] Carlyle Neri MD 02/15/2024 10:20 AM BRUSHER OPERATOR Lab [facility] [address] [place] [address] 02/08/2024 8:20 AM BRUSHER OPERATOR Office Visit [facility] ([facility]) - [facility] [address] [facility] 11th [place] [address] [place] [address] Mile Munroe MD Deviated nasal septum (Primary Dx) 02/08/2024 Orders Only [facility] [address] [facility] [address] [place] [address] Barby Leary PA Cervical radiculopathy (Primary Dx); Nontraumatic complete tear of right rotator cuff; Biceps tendinitis of right upper extremity 02/06/2024 8:56 AM BRUSHER OPERATOR - 02/06/2024 11:59 PM BRUSHER OPERATOR Hospital Encounter [facility] [address] [place] [address] Degenerative disc disease, cervical; Biceps tendinitis of left upper extremity; Degenerative superior labral yxugqsqw-ob-xqrosvjd r (SLAP) tear of left shoulder Discharge Disposition: Discharge to home or self care 01/24/2024 3:30 PM BRUSHER OPERATOR Office Visit [facility] [place] [address] Barby Leary PA Degenerative disc disease, cervical (Primary Dx); Adhesive capsulitis of left shoulder; Chronic left shoulder pain from Last 3 Months Surgical History Surgery Date Site/Laterality Comments ACHILLES TENDON REPAIR 03/05/2012 - 03/04/2013 Left BACK SURGERY 03/05/2001 - 03/04/2002 broken back TUBAL LIGATION 03/05/2004 - 03/04/2005 THYROID SURGERY 03/05/2020 - 03/04/2021 Medical History Medical History Date Comments Hx Other Medical 2001 back surgery History of multiple allergies Al lergies Fatigue Diarrhea Constipation SOB (shortness of breath) on exertion Eye problem sensitive to lig ht Fibroids 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 Covid-19 01/30/2020 Awareness under anesthesia 2004 Woke up during tubal ligation ([facility]) Awareness under anesthesia 1992 Woke uo during wisdom teeth extraction ([facility]) Motion sickness PONV (postoperative nausea a nd vomiting) Dizziness 3 years ago Tinnitus 10 years ago 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 Family History Medical History Relation Name Comments Allergies Brother Luis Santamaria Allergies Mother Stephenie Oakes Asthma Mother Stephenie Oakes Hypertension Mother Stephenie Oakes Hypothyroidism Mother Stephenie Oakes hypothyroidis m; Thyroid disease Mother Stephenie Oakes Cervical cancer Mother's Sister 1 Uterine cancer Mother's Sister 1 Cancer Mother's Sister 2 Bernilda Anesthesia problems Neg Hx Relation Name Status Comments Brother Luis Santamaria Mother Stephenie Oakes Mother's Sister 1 Mother's Sister 2 Bernilda Social History Tobacco Use Types Packs/Day Years Used Date Smoking Tobacco: Former Cigarettes 0.8 29 1 991 - 03/07/2019 Smokeless Tobacco: Never Tobacco Cessation:Counseling Given: Not Answered Alcohol Use Standard Drinks/Week Comments Yes 0 (1 standard drink = 0.6 oz pur e alcohol) AUDIT-C Answer Date Recorded Frequency of Alcohol Consumption Not on file 11/09/2023 Q2: How many drinks containi ng alcohol do you have on a typical day when you are drinking? Patient does not drink Frequency of Binge Drinking Not on file 08/2023 Personal Safety Answer Date Recorded Getting School Help Needed Denies 02/12 Comments No Sex and Gender Information Value Date Recorded Sex Assigned at Not on file Legal Sex Female 5:44 AM BRUSHER OPERATOR Gender Identity Female 03/24/2020 10:33 AM BRUSHER OPERATOR Sexual Orientation Straight 03/24/2020 10 :33 AM BRUSHER OPERATOR Obstetrics History Comments LMP: 07/27/2020 Last Filed Vital Signs Vital Sign Reading Time Taken Comments Blood Pressure 119/72 04/08/2024 7:29 AM BRUSHER OPERATOR Pulse 66 04/08/2024 7:29 AM BRUSHER OPERATOR Temperature 36.7 C (98.1 F) 04/08/2024 7:10 AM BRUSHER OPERATOR Respiratory Rate 18 04/08/2024 7:29 AM BRUSHER OPERATOR Oxygen Saturation 100% 04/08/2024 7:29 AM BRUSHER OPERATOR Inhaled Oxygen Concentration - - Weight 73.8 kg (162 lb 9.6 oz) 02/26/2024 8:51 A M BRUSHER OPERATOR Height 172.7 cm (5' 8 ) 02/26/2024 8:51 AM BRUSHER OPERATOR Body Mass Index 24.72 02/26/2024 8:51 AM BRUSHER OPERATOR Plan of Treatment Health Maintenance Due Date Last Done Comments Cervical Cancer Screening 1976 Colon Cancer Screening-Colonoscopy 1976 Depression Screening 1976 Hepatitis C Screening 1976 DTaP/Tdap/Td Vaccine (1 - Tdap) 01/03/1987 Hepatitis B Screening 01/03/1994 Regular Well Visit/Exam 18-64 01/03/1994 Breast Cancer Screening-Mammogram 04/14/2022 022 Covid-19 Vaccine (2 - 2023-2 5 season) 2023 02/27/2021 Influenza Vaccine (#1) 2023 02/27/2021 Pneumococcal vaccine <65 Aged Out No longer eligible based on patient's age to complete this topic Procedures Procedure Name Priority Date/Time Associated Diagnosis Comments PAIN MGMT IMAGING CERVICAL/THORACIC EPIDURAL STEROID INJ Schedule Routine, Read Routine (OP Routine) 04/08/2024 7:32 AM BRUSHER OPERATOR Cervical radiculopathy THROAT CULTURE Routine 02/26/2024 9:20 AM BRUSHER OPERATOR Sore throat POCT INFLUENZA A/B Routine 02/26/2024 9: 15 AM BRUSHER OPERATOR Sore throat COVID-19 POC Routine 02/26/2024 9:15 AM BRUSHER OPERATOR Sore throat POCT RAPID STREP Routine 02/26/2024 9:15 AM BRUSHER OPERATOR Sore throat EGFR Routine 02/15/2024 10:20 AM BRUSHER OPERATOR DIFFERENTIAL AUTO Routine 02/15/2024 10:20 AM BRUSHER OPERATOR VITAMIN D 25 HYDROXY Routine 02/15/2024 10:20 AM BRUSHER OPERATOR CBC WITH AUTO DIFFERENTIAL Routine 02/15/2024 10:20 AM BRUSHER OPERATOR LIPID PANEL Routine 02/15/2024 10:20 AM BRUSHER OPERATOR COMPREHENSIVE METABOLIC PANEL Routine 02/15/2024 10:20 AM BRUSHER OPERATOR URINALYSIS AND REFLEX TO MICROSCOPIC AND CULTURE Routine 02/15/2024 10:20 AM BRUSHER OPERATOR MRI CERVICAL SPINE WO CONTRAST Schedule Routine, Read Routine (OP Routine) 02/06/2024 9:13 AM BRUSHER OPERATOR Degenerative disc disease, cervical Biceps tendinitis of left upper extremity Degenerative superior labral hwpvxnha-ec-vksblfq or (SLAP) tear of left shoulder DE ARTHROCENTESIS ASPIR&/INJ MAJOR JT/BURSA W/O US Routine 01/24/2024 3:30 PM BRUSHER OPERATOR Adhesive capsulitis of left shoulder Chronic left shoulder pain SCREENING MAMMOGRAM Schedule Routine, Read Routine (OP Routine) 04/14/2021 from Last 3 Months or Most Recently Relevant to Health Maintenance Results * Imaging Cervical/Thoracic Epidural Steroid INJ (80369) (04/08/2024 7:32 AM BRUSHER OPERATOR) Narrative RAD_PACS_[facility] - 04/08/2024 7:32 AM BRUSHER OPERATOR The images from this study are not interpreted by Radiology. Please refer to the physician's procedure / OR operative note. Floyd Chiang MD IMG PAIN MGMT PROCEDU RES Final Result RAD_PACS_[facility] * Throat culture Throat (02/26/2024 9:20 AM BRUSHER OPERATOR) Report Final Report: No growth of pathogens. Comment:Testing performed by : [facility], [address] [place]., [address] Throat 02/26/2024 9:20 AM BRUSHER OPERATOR 02/26/2024 6:12 PM BRUSHER OPERATOR Narrative [facility] - 02/27/2024 1:42 PM BRUSHER OPERATOR Testing performed by [facility] ([phone]). Diane Walsh NP LAB MICROBIOLOGY - GENERAL ORDERABLES Final Result Performing Organization Address [facility]/ZIP Co de Phone Number [facility] [address] [address] [place] [address] * COVID-19 POC (02/26/2024 9:15 AM BRUSHER OPERATOR) COVID-19 Ag POC (BD Veritor) Presumptive Negative Presumptive Negative, Invalid [facility] Nasal 02/26/2024 9:15 AM BRUSHER OPERATOR Diane Walsh NP POINT OF CARE TEST ORDERAB LES Final Result Performing Organization Address [facility] Co de Phone Number [facility] [address] [place] [address] * POCT influenza A/B (02/26/2024 9:15 AM BRUSHER OPERATOR) Rapid Influenza A Ag Negative Negative, Invalid Rapid Influenza B Ag Negative Negative, Invalid Nasal 02/26/2024 9:15 AM BRUSHER OPERATOR Diane Walsh NP POINT OF CARE TEST ORDERAB LES Final Result * POCT rapid strep A (02/26/2024 9:15 AM BRUSHER OPERATOR) Rapid Strep A, POC Negative Negative Swab 02/26/2024 9:15 AM BRUSHER OPERATOR us Diane Walsh NP POINT OF CARE TEST ORDERAB LES Final Result * eGFR (02/15/2024 10:20 AM BRUSHER OPERATOR) Pathologist [facility] eGFR 88 >=60 mL/min/1. 73 m2 Comment: Interpretive Data Reference Interval Normal >/= 90 mL/min/1.73m2 Mildly decreased* 60 - 89 mL/min/1.73m2 Mildly to moderately decreased 45 - 59 mL/min/1.73m2 Moderately to severely decreased 30 - 44 mL/min/1.73m2 Severely decreased 15 - 29 mL/min/1.73m2 Kidney Failure < 15 mL/min/1.73m2 *Relative to young adult level Estimated glomerular filtration rate is determined by the 2020 CKD-EPI equation recommended by the National Kidney Foundation (A Unifying Approach to GFR Estimation: Recommendations of the NKF-ASK Task Force on Reassessing the Inclusion of Race in Diagnosing Kidney Disease, JASN 2020). The CKD-EPI equation should not be used for patients with unstable renal function and has not been validated in children and those over 70. Current interpretive data was last reviewed 2021. Testing performed by: [address] [place]., [address] Blood 02/15/2024 10:2 0 AM BRUSHER OPERATOR 02/15/2024 12:00 PM BRUSHER OPERATOR us Iraj Rogers MD LAB BLOOD ORDERABLES Fin al Result [facility] ([place]) 0 Nxwxak[facility] Department [place] [address] * Differential, auto (02/15/2024 10:20 AM BRUSHER OPERATOR) Pathologist [facility] Neutrophil abs 2.3 1.5 - 6.5 K/cumm Comment:Testing performed by : [address] [place]., [address] Imm gran abs 0.0 0.0 - 0.1 K/cumm [facility] ([place]) Comment:Testing performed by : [facility], [address] [place] [address]., [address] Lymphocyte abs 1.7 0.8 - 3.3 K/cumm [facility] ([place]) Comment:Testing performed by : [facility], [address] [place] [address]., [address] Monocyte abs 0.2 0.2 - 0.8 K/cumm [facility] ([place]) Comment:Testing performed by : [facility], [address] [place] [address]., [address] Eosinophil abs 0.2 0.0 - 0.5 K/cumm [facility] ([place]) Comment:Testing performed by : [facility], [address] [place] [address]., [address] Basophil abs 0.0 0.0 - 0.1 K/cumm [facility] ([place]) Comment:Testing performed by : [address] [address] Neutrophil pct 52.3 % [facility] ([place]) Comment: Interpretive Data Percent cell count reference ranges are not reported, since discordance with absolute values may lead to misinterpretation of CBC data. Current Interpretive Data was last revised on 2017. Testing performed by: [facility], [address] [place] [address]., [address] Imm gran pct 0.0 % [facility] ([place]) Comment: Interpretive Data Percent cell count reference ranges are not reported, since discordance with absolute values may lead to misinterpretation of CBC data. Current Interpretive Data was last revised on 2017. Testing performed by: [address] [address] Lymphocyte pct 38.9 % [facility] ([place]) Comment: Interpretive Data Percent cell count reference ranges are not reported, since discordance with absolute values may lead to misinterpretation of CBC data. Current Interpretive Data was last revised on 2017. Testing performed by: [address], [address] Monocyte pct 4.7 % [facility] ([place]) Comment: Interpretive Data Percent cell count reference ranges are not reported, since discordance with absolute values may lead to misinterpretation of CBC data. Current Interpretive Data was last revised on 2017. Testing performed by: [address] [address] Eosinophil pct 3.4 % KAROLINE LAYNE ([place]) Comment: Interpretive Data Percent cell count reference ranges are not reported, since discordance with absolute values may lead to misinterpretation of CBC data. Current Interpretive Data was last revised on 2017. Testing performed by: [address] [address] Basophil pct 0.7 % [facility] ([place]) Comment: Interpretive Data Percent cell count reference ranges are not reported, since discordance with absolute values may lead to misinterpretation of CBC data. Current Interpretive Data was last revised on 2017. Testing performed by: [address], [address] Blood 02/15/2024 10:2 0 AM BRUSHER OPERATOR 02/15/2024 11:35 AM BRUSHER OPERATOR us Iraj Rogers MD LAB BLOOD ORDERABLES [facility] al Result [facility] ([place]) [address] [facility] Department [place] [address] * Urinalysis reflex to microscopic and culture Urine (02/15/2024 10:20 AM BRUSHER OPERATOR) Color, ur Yellow Yellow Comment:Testing performed by : [address] [address] Clarity, ur Clear Clear [facility] PACHECO ([place]) Comment:Testing performed by : [address] [address] Specific gravity, ur 1.017 1.003 - 1.030 [facility] ([place]) Comment:Testing performed by : [address], [address] pH, urine 8.0 [facility] ([place]) Comment: Interpretive Data U rine pH is affected by diet, medications, systemic acid-base disturbances, and renal tubular function. pH may affect urinary stone formation. For example, urine pH below 6.0 may help reduce the tendency for calcium phosphate stones and pH greater than 6.0 may reduce the tendency for uric acid stone formation. Source: [facility] [employer] Current Interpretive Data was last revised on 2017 Testing performed by: [address], [address] Protein, ur ql Negative Negative [facility] ([place]) Comment:Testing performed by : [address], [address] Glucose, ur ql Negative Negative [facility] ([place]) Comment:Testing performed by : [address], [address] Ketones, ur Negative Negative [facility] ([place]) Comment:Testing performed by : [address], [address] Bilirubin, ur Negative Negative [facility] ([place]) Comment:Testing performed by : [address], [address] Blood, ur Negative Negative [facility] ([place]) Comment:Testing performed by : [address], [address] Urobilinogen, ur <2.0 <2.0 mg/dL [facility] ([place]) Comment:Testing performed by : [address], [address] Nitrite, ur Negative Negative [facility] ([place]) Comment:Testing performed by : [address], [address] Leukocyte esterase, ur Negative Negative [facility] ([place]) Comment:Testing performed by : [address], [address] UA reflex comment Reflex conditions for microscopic UA and culture not met. [facility] ([place]) Comment:Testing performed by : [address], [address] Urine 02/15/2024 10:2 0 AM BRUSHER OPERATOR 02/15/2024 11:35 AM BRUSHER OPERATOR us Iraj Rogers MD LAB MICROBIOLOGY - GENER AL ORDERABLES Final Result [facility] ([place]) [address] [facility] Department [place] [address] * (ABNORMAL) CBC with auto differential (02/15/2024 10:20 AM BRUSHER OPERATOR) WBC 4.5 3.8 - 9.9 K/cumm Comment:Testing performed by : [address], [address] Hgb 13.0 11.9 - 15.5 g/dL [facility] ([place]) Comment:Testing performed by : [address], [address] Hct 40.4 35.6 - 45.5 % [facility] ([place]) Comment:Testing performed by : [address], [address] Plt 202 150 - 400 K/cumm [facility] ([place]) Comment:Testing performed by : [address], [address] MPV 9.5 9.1 - 12.3 fL [facility] ([place]) Comment:Testing performed by : [address], [address] RBC 4.53 3.90 - 5.20 M/cumm [facility] ([place]) Comment:Testing performed by : [address], [address] MCV 89.2 81.3 - 96.4 fL [facility] ([place]) Comment:Testing performed by : [address], [address] MCH 28.7 27.1 - 33.3 pg [facility] ([place]) Comment:Testing performed by : [address], [address] MCHC 32.2(L) 32.3 - 35.7 g/dL [facility] ([place]) Comment:Testing performed by : [address], [address] RDW CV 13.3 11.1 - 14.9 % [facility] ([place]) Comment:Testing performed by : [address], [place]., [address] RDW SD 43.7 35.7 - 48.1 fL [facility] L[facility] ([place]) Comment:Testing performed by : [facility], [address] [place] [address]., [address] NRBC abs 0.00 0.00 - 0.01 K/cumm [facility]IV[facility] LAYNE ([place]) Comment:Testing performed by : [facility], [address] [place] [address], [address] Blood 02/15/2024 10:2 0 AM BRUSHER OPERATOR 02/15/2024 11:35 AM BRUSHER OPERATOR us Iraj Rogers MD LAB BLOOD ORDERABLES Fin al Result Performing Organization Address City/[facility]/ZIP Co de Phone Number [facility] ([place]) 1 [facility] [place] [address] * Vitamin D 25 hydroxy (02/15/2024 10:20 AM BRUSHER OPERATOR) Vitamin D 25-OH 61 30 - 80 ng/mL Comment:Testing performed by : [facility], [address] [place] [address], [address] Blood 02/15/2024 10:2 0 AM BRUSHER OPERATOR 02/15/2024 11:35 AM BRUSHER OPERATOR us Iraj Rogers MD LAB BLOOD ORDERABLES Fin al Result [facility] ([place]) 1 [facility] [place] [address] * Lipid panel (02/15/2024 10:20 AM BRUSHER OPERATOR) Cholesterol 176 30 - 199 mg/dL Comment: Interpretive Data Ages < or = 19 years Acceptable: <170 mg/dL Borderline high: 170-199 mg/dL High: >or= 200 mg/dL Ages > or = 20 years Desirable: <200 mg/dL Borderline high: 200-239 mg/dL High: >or= 240 mg/dL Literature References: 1. Expert Panel on Integrated Guidelines for Cardiovascular Health and Risk Reduction in Children and Adolescents. Pediatrics 2011;128:S213 2. NCEP Expert Panel. Circulation 2004;110:227 Current Interpretive Data was last revised on 2017. Testing performed by: [facility], [address] [place] [address]., [address] Triglycerides 49 <=149 mg/dL [facility] ([place]) Comment: Interpretive Data Ages < or = 9 years Acceptable: <75 mg/dL Borderline high: 75-99 mg/dL High: >or= 100 mg/dL Ages 10 to 20 years Acceptable: <90 mg/dL Borderline high: 90-129 mg/dL High: >or= 130 mg/dL Ages > or = 20 years Desirable: <150 mg/dL Borderline high: 150-199 mg/dL High: 200-499 mg/dL Very high: >or= 499 mg/dL Literature References: 1. Expert Panel on Integrated Guidelines for Cardiovascular Health and Risk Reduction in Children and Adolescents. Pediatrics 2011;128:S213 2. NCEP Expert Panel. Circulation 2004;110:227 Current Interpretive Data was last revised on 2017. Testing performed by: [facility], [address] [place] [address]., [address] HDL 65 >=40 mg/dL [facility] OR[facility] ([place]) Comment: Interpretive Data Ages < or = 19 years Acceptable: >45 mg/dL Borderline low: 40-45 mg/dL Low: <40 mg/dL Ages > or = 20 years Desirable: >or= 60 mg/dL Low: <40 mg/dL Literature References: 1. Expert Panel on Integrated Guidelines for Cardiovascular Health and Risk Reduction in Children and Adolescents. Pediatrics 2011;128:S213 2. NCEP Expert Panel. Circulation 2004;110:227 Current Interpretive Data was last revised on 2017. Testing performed by: [facility], [address] [place] [address]., [address] LDL, calculated 101 <=129 mg/dL [facility] ([place]) Comment: Interpretive Data Ages < or = 19 years Acceptable: <110 mg/dL Borderline high: 110-129 mg/dL High: >or= 130 mg/dL Ages > or = 20 years Optimal: <100 mg/dL Near optimal: 100-129 mg/dL Borderline high: 130-159 mg/dL High: >160 mg/dL Calculated using the Langley LDL-C estimating equation. This equation was implemented on 2023. Prior to this date LDL-C was estimated using the Friedewald equation. Literature References: 1. Expert Panel on Integrated Guidelines for Cardiovascular Health and Risk Reduction in Children and Adolescents. Pediatrics 2011;128:S213 2. NCEP Expert Panel. Circulation 2004;110:227 3. Shivam Katz et al. SOTERO Cardiol. 2019July 03;5(5):540-548. doi: 10.1001/jamacardio.2020.0013 Current Interpretive Data was last revised on 2023. Testing performed by: [address] [address] Non-HDL Cholesterol 111 mg/dL [facility]) Comment: Interpretive Data Ages < or = 19 years Acceptable: <120 mg/dL Borderline high: 120-144 mg/dL High: >145 mg/dL Ages > or = 20 years When triglycerides are >200 mg/dL, Non-HDL cholesterol is a secondary target of therapy with treatment goals that are 30 mg/dL greater than the LDL cholesterol target. Literature References: 1. Expert Panel on Integrated Guidelines for Cardiovascular Health and Risk Reduction in Children and Adolescents. Pediatrics 2011;128:S213 2. NCEP Expert Panel. Circulation 2004;110:227 Current Interpretive Data was last revised on 2017. Testing performed by: [facility], [address] [place] [address]., [id number] Chol/HDL ratio 3 KAROLINE LAYNE (BANDAR) Comment:Testing performed by : [facility], [address] [place] [address]., [address] Blood 02/15/2024 10:2 0 AM BRUSHER OPERATOR 02/15/2024 11:35 AM BRUSHER OPERATOR us Iraj Rogers MD LAB BLOOD ORDERABLES Fin al Result RIVAS LAYNE (BANDAR) 1 [facility]ly [facility] [place] [address] * Comprehensive metabolic panel (02/15/2024 10:20 AM BRUSHER OPERATOR) [facility] Sodium 140 135 - 145 mmol/L Comment:Testing performed by : [address] [address] Potassium, pl 4.0 3.3 - 4.9 mmol/L [facility] (BANDAR) Comment:Testing performed by : [facility], [address] [place] [address]., [address] Chloride 102 97 - 110 mmol/L [facility] (BANDAR) Comment:Testing performed by : [facility], [address] [place] [address], [address] CO2 28 22 - 32 mmol/L [facility] (BANDAR) Comment:Testing performed by : [address], [address] Anion gap 10 2 - 15 mmol/L [facility] (BANDAR) Comment:Testing performed by : [address], [address] BUN 15 6 - 25 mg/dL [facility] (BANDAR) Comment:Testing performed by : [address], [address] Creatinine 0.82 0.60 - 1.10 mg/dL [facility] (BANDAR) Comment:Testing performed by : [address], [address] Glucose 78 70 - 199 mg/dL [facility] (BANDAR) Comment: Interpretive Data Fasting glucose >/= 126 mg/dl is diagnostic for diabetes. Fasting is defined as no caloric intake for at least 8 hours. Fasting glucose between 100 mg/dl to 125 mg/dl is diagnostic of prediabetes. In a patient with classic symptoms of hyperglycemia or hyperglycemic crisis, a random glucose >/= 200 mg/dl is diagnostic for diabetes. In the absence of unequivocal hyperglycemia, results should be confirmed by repeat testing. The classification and Diagnosis of Diabetes Diabetes Care 2021; 46: S19-S40. Current interpretive data was last revised 2022. Testing performed by: [address], [address] Calcium 9.3 8.5 - 10.3 mg/dL [facility] (BANDAR) Comment:Testing performed by : [address], [address] Bilirubin, total 1.0 0.1 - 1.2 mg/dL [facility] (BANDAR) Comment:Testing performed by : [facility], [address] [place] [address]., [address] Protein, pl 7.2 6.5 - 8.5 g/dL [facility] (BANDAR) Comment:Testing performed by : [facility], [address] [place] [address]., [address] Albumin 4.2 3.5 - 5.0 g/dL [facility] (BANDAR) Comment:Testing performed by : [facility], [address] [place] [address]., [address] Alk phos 57 40 - 130 Units/L [facility] (BANDAR) Comment:Testing performed by : [facility], [address] [place] [address], [address] ALT 39 7 - 45 Units/L [facility] (BANDAR) Comment:Testing performed by : [facility], [address] [place] [address], [address] AST 31 10 - 45 Units/L [facility] (BANDAR) Comment:Testing performed by : [facility], [address] [place] [address], [address] Blood 02/15/2024 10:2 0 AM BRUSHER OPERATOR 02/15/2024 11:35 AM BRUSHER OPERATOR Iraj Rogers MD LAB BLOOD ORDERABLES [facility] al Result [facility] (BANDAR) 1 [facility] Department [place] [address] * MRI Cervical Spine WO Contrast (02/06/2024 9:13 AM BRUSHER OPERATOR) Anatomical Region Laterality Modality Spine N/A Magnetic Resonan ce 02/06/2024 10:0 0 AM BRUSHER OPERATOR Narrative 02/06/2024 10:10 AM BRUSHER OPERATOR EXAM DESCRIPTION: MRI CERVICAL SPINE WO CONTRAST REASON FOR STUDY: Neck pain, chronic Neck pain with shoulder and bicep pain. TECHNIQUE: Sagittal and Axial imaging includes T1, T2, STIR and gradient echo sequences. COMPARISON: Cervical spine radiographs dated 01/01/2024 FINDINGS: ALIGNMENT: Normal. VERTEBRAE: Vertebral body height well-maintained. The bone marrow is mildly diffusely T1 hypointense which could represent red marrow conversion or be within normal variation for patient age.. No aggressive bone marrow replacement process identified. DISCS: Disc heights well-maintained. CORD: Normal in size and signal intensity. INDIVIDUAL LEVELS: C2-C3: Trace posterior disc osteophyte complex. There is mild facet arthropathy. There is mild left uncovertebral joint disease. There is no neuroforaminal stenosis. There is no spinal canal stenosis. C3-C4: The disc is normal in configuration. There is wlhb-ae-qkkmrdjj facet arthropathy. There is trace uncovertebral joint disease. There is mild bilateral neuroforaminal stenosis. There is no spinal canal stenosis. C4-C5: Small posterior disc osteophyte complex. There is moderate bilateral facet arthropathy. There is moderate bilateral uncovertebral joint disease. There is moderate left and mild right neuroforaminal stenosis. There is no spinal canal stenosis. C5-C6: Small posterior disc osteophyte complex. There is moderate facet arthropathy. There is mild uncovertebral joint disease. There is mild bilateral neuroforaminal stenosis. There is no spinal canal stenosis. C6-C7: Posterior disc osteophyte complex. There is vcnl-xc-btnxlzpq facet arthropathy. There is mild left and moderate right uncovertebral joint disease. There is tecp-au-fghyzlsb bilateral neuroforaminal stenosis. There is no spinal canal stenosis. C7-T1: The disc is normal in configuration. There is no facet arthropathy. There is no uncovertebral joint disease. There is no neuroforaminal stenosis. There is no spinal canal stenosis. BASE OF BRAIN: No significant finding. UPPER THORACIC: Incompletely imaged. No significant spinal stenosis or foraminal stenosis. OTHER: Multiple palatine tonsilliths are noted. Mildly prominent right 2A lymph node measures 9 mm in short axis and is likely reactive. IMPRESSION: 1. Brqm-jf-vebenxzh degenerative changes of the cervical spine as described above. 2. Left C4-C5 moderate neural foraminal stenosis. THIS IS AN ELECTRONICALLY VERIFIED FINAL REPORT 02/06/2024 10:10 AM - Electronically signed by Seun Pritchett M.D. MM: DEVIN Report ID: [id number] Reading Location: [id number] Procedure Note Seun Pritchett MD - 02/06/2024 EXAM DESCRIPTION: MRI CERVICAL SPINE WO CONTRAST REASON FOR STUDY: Neck pain, chronic Neck pain with shoulder and bicep pain. TECHNIQUE: Sagittal and Axial imaging includes T1, T2, STIR and gradientecho sequences. COMPARISON: Cervical spine radiographs dated 01/01/2024 FINDINGS: ALIGNMENT: Normal. VERTEBRAE: Vertebral body height well-maintained. The bone marrow ismildly diffusely T1 hypointense which could represent red marrow conversion or be within normal variation for patient age.. No aggressive bone marrow replacement process identified. DISCS: Disc heights well-maintained. CORD: Normal in size and signal intensity. INDIVIDUAL LEVELS: C2-C3: Trace posterior disc osteophyte complex. There is mild facet arthropathy. There is mild left uncovertebral joint disease. There isno neuroforaminal stenosis. There is no spinal canal stenosis. C3-C4: The disc is normal in configuration. There is owjv-xk-okvuxmnw facet arthropathy. There is trace uncovertebral joint disease. There is mild bilateral neuroforaminal stenosis. There is no spinal canalstenosis. C4-C5: Small posterior disc osteophyte complex. There is moderatebilateral facet arthropathy. There is moderate bilateral uncovertebral jointdisease. There is moderate left and mild right neuroforaminal stenosis. There isno spinal canal stenosis. C5-C6: Small posterior disc osteophyte complex. There is moderatefacet arthropathy. There is mild uncovertebral joint disease. There is mild bilateral neuroforaminal stenosis. There is no spinal canal stenosis. C6-C7: Posterior disc osteophyte complex. There is deyb-zk-xnvxukboftaph arthropathy. There is mild left and moderate right uncovertebral joint disease. There is wpul-my-czxbchal bilateral neuroforaminal stenosis.There is no spinal canal stenosis. C7-T1: The disc is normal in configuration. There is no facetarthropathy. There is no uncovertebral joint disease. There is no neuroforaminal stenosis. There is no spinal canal stenosis. BASE OF BRAIN: No significant finding. UPPER THORACIC: Incompletely imaged. No significant spinal stenosis or foraminal stenosis. OTHER: Multiple palatine tonsilliths are noted. Mildly prominent zmcvm3A lymph node measures 9 mm in short axis and is likely reactive. IMPRESSION: 1. Wdie-fu-wofliumx degenerative changes of the cervical spine asdescribed above. 2. Left C4-C5 moderate neural foraminal stenosis. THIS IS AN ELECTRONICALLY VERIFIED FINAL REPORT 02/06/2024 10:10 AM - Electronically signed by Seun Pritchett M.D. MM: MM Report ID: [id number] Reading Location: [place] [address] [facility] NAIK IMG MRI PROCEDURES Samia l Result * DE ARTHROCENTESIS ASPIR&/INJ MAJOR JT/BURSA W/O US (01/24/2024 3:30 PM BRUSHER OPERATOR) Narrative Barby Leary PA - 01/24/2024 3:30 PM BRUSHER OPERATOR Barby Leary PA 01/26/2024 11:22 AM Large Joint (Hip, Knee, Shoulder) Injection: L glenohumeral Performed by: Barby Leary PA Authorized by: Barby Leary PA Large Joint Injection/Aspiration: Consent Given by: Patient Site marked: the procedure site was marked Timeout: prior to procedure the correct patient, procedure, and site was verified Verbal consent obtained: Yes Supporting Documentation: Indications: Pain Procedure Details: Location: Shoulder Site: L glenohumeral Prep: patient was prepped and draped in usual sterile fashion Needle Size: 22 G Approach: Posterior Ultrasound guided: No Fluroscopic guidance: No Medications: 80 mg methylPREDNISolone acetate 80 mg/mL; 3 mL lidocaine 20 mg/mL (2 %) Patient tolerance: Patient tolerated the procedure well with no immediate complications Result [facility] Barby NAIK IN CLINIC/BEDSIDE ORDER ZHANNA Final Result * Screening Mammogram (04/14/2021) Anatomical Region Laterality Modality Breast N/A Mammography 04/14/2021 Historical Provider IMG MAMMO PROCEDURES Samia l Result from Last 3 Months or Most Recently Relevant to Health [place] [address] [place] [address] [place] [address] [place] [address] [place] [address] [place] [address] [facility] [place] [address] [place] [address] Advance Directives For more information, please contact: [phone] * Full Code (Latest Code Status on File) Date Activated Date Inactivated Comments 05/09/2022 4:01 PM 05/10/2022 12:16 AM * Full Code Date Activated Date Inactivated Comments 08/28/2020 8:00 AM 08/28/2020 7:16 PM * Full Code Date Activated Date Inactivated Comments 08/27/2020 8:43 PM 08/28/2020 8:00 AM Care Teams Laminating Press Operator Relationship Specialty [place] [address] [facility] [place] [address] PCP - General 05/16/11 Estella Kim MD [address] [place] [address] Referring Physician Surgical Oncology 05/09/22
--- OUTSIDE RECORDS SUMMARY | 2024-04-25 07:32 | XMS_ITS | Encounter Summary ---
Author Organization [facility] Address [address] [facility] [place] [address] Care Team Providers Care Couples Therapist Name Role Phone Unavailable Primary Care Provider Unavailabl e Encounter Details Date Type Department Care Team (Late st Contact Info) Description 11/29/2018 Lab Requisition [facility] [address] [place] [address] [place] [address] [place] [address] Social History Tobacco Use Types Packs/Day Years Used Date Smoking Tobacco: Every Day Smokeless Tobacco: Never Alcohol Use Standard Drinks/Week Comments No 0 (1 standard drink = 0.6 oz pur e alcohol) Sex and Gender Information Value Date Recorded Sex Assigned at Not on file Gender Identity Not on file Sexual Orientation Not on file documented as of this encounter Plan of Treatment Not on file documented as of this encounter Procedures Procedure Name Priority Date/Time Associated Diagnosis Comments HCG BETA BLOOD QUANTITATIVE STAT 11/29/2018 3:42 PM CDT documented in this encounter Results * HCG BETA BLOOD QUANTITATIVE (11/29/2018 3:42 PM CDT) hCG Quantitative <1.20 mIU/mL 11/30/19 19 6:11 PM CDT [facility] Blood BLOOD SPECIMEN / Unknown Venipuncture / Unknown 11/29/2018 3:42 PM CDT 11/29/2018 5:44 PM CDT Narrative [facility] - 11/29/2018 6:11 PM CDT hCG Reference Range, mIU/mL: Males 0-2.0 Non Females 0-6.0 Perimenopausal Females ages 41-55* 0-7.7 Postmenopausal Females age >55* 0-14 Females, Weeks after Last Menstrual Period 0.2-1 week 5-50 1 - 2 weeks 50-500 2 - 3 weeks 100-5000 3 - 4 weeks 500-10,000 4 - 5 weeks 1000-50,000 5 - 6 weeks 10,000-100,000 6 - 8 weeks 15,000-200,000 2 - 3 months 10,000-100,000 Trophoblastic Disease >100,000 *In higher than expected hCG in females > age 40, a serum FSH >20 IU/L makes unlikely. Iraj Mckeon MD LAB - CHEMISTRY [facility] Organization Address City/State/ZIP Co de Phone Number [facility] [address] [place] [address] documented in this encounter Visit Diagnoses Not on filedocumented in this encounter
--- OUTSIDE RECORDS SUMMARY | 2024-04-25 07:32 | XMS_ITS | Referral Summary ---
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 Name Role Phone Iraj Rogers MD Primary Care Provider + Estella Kim MD Unavailable [phone] Encounters Date Type Department Care Team Description 04/08/2024 6:56 AM SERVICE STATION EQUIPMENT MECHANIC - 04/08/2024 11:59 PM SERVICE STATION EQUIPMENT MECHANIC Hospital Encounter [facility] [address] [place] [phone] Floyd Chiang MD Cervical spinal stenosis [M48.02] (Primary Dx); Cervical radiculopathy Discharge Disposition: Discharge to home or self care 03/24/2024 1:13 PM SERVICE STATION EQUIPMENT MECHANIC - 03/24/2024 11:59 PM SERVICE STATION EQUIPMENT MECHANIC Hospital Encounter [facility] [address] [phone] Floyd Chiang MD Cervical spinal stenosis (Primary Dx); Cervical radiculopathy; Subacromial bursitis of left shoulder joint Discharge Disposition: Discharge to home or self care 02/28/2024 Telephone [facility] [address] [place] [phone] Isaura Cuello MA 02/26/2024 9:20 AM SERVICE STATION EQUIPMENT MECHANIC - 02/26/2024 11:59 PM SERVICE STATION EQUIPMENT MECHANIC Hospital Encounter [address] [address] Sore throat Discharge Disposition: Discharge to home or self care 02/26/2024 8:45 AM SERVICE STATION EQUIPMENT MECHANIC Office Visit [facility] [address] [place] [address] Diane Walsh NP Sore throat (Primary Dx); Upper respiratory tract infection, unspecified type; Pharyngitis, unspecified etiology 02/19/2024 Telephone [facility] [address] [place] [address] [address] [place] [phone] Carlyle Neri MD 02/15/2024 10:20 AM SERVICE STATION EQUIPMENT MECHANIC Lab [facility] [address] [place] [address] 02/08/2024 Orders Only [facility] [address] [place] [address] [address] [place] [phone] Barby Leary PA Cervical radiculopathy (Primary Dx); Nontraumatic complete tear of right rotator cuff; Biceps tendinitis of right upper extremity 02/08/2024 8:20 AM SERVICE STATION EQUIPMENT MECHANIC Office Visit [facility] ([facility] [address] [facility] 11th [place] [address] [place] [address] Mile Munroe MD Deviated nasal septum (Primary Dx) 02/06/2024 8:56 AM SERVICE STATION EQUIPMENT MECHANIC - 02/06/2024 11:59 PM SERVICE STATION EQUIPMENT MECHANIC Hospital Encounter [facility] [address] [place] [address] Degenerative disc disease, cervical; Biceps tendinitis of left upper extremity; Degenerative superior labral kbabygdw-bo-zxhrikjv r (SLAP) tear of left shoulder Discharge Disposition: Discharge to home or self care 01/24/2024 3:30 PM SERVICE STATION EQUIPMENT MECHANIC Office Visit [facility] [address] [place] [phone] Barby Leary PA Degenerative disc disease, cervical (Primary Dx); Adhesive capsulitis of left shoulder; Chronic left shoulder pain from Last 3 Months Allergies Active Allergy Reactions Criticality Noted Date [...] selenium 200 mcg tablet 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 mouth 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 Active calcium ydh-fzr-Z9-Zn-c op-rashel 250 mg-40 mg- 125 unit-3.75mg tablet [...] Thyromegaly 12/24/2019 05/24/2021 Postoperative hypothyroidism 12/24/2019 12/06/2021 Social History Tobacco Use Types Packs/Day Years [...] on file Legal Sex Female 5:44 AM SERVICE STATION EQUIPMENT MECHANIC Gender Identity Female 03/24/2020 10:33 AM SERVICE STATION EQUIPMENT MECHANIC Sexual Orientation Straight 03/24/2020 10 :33 AM SERVICE STATION EQUIPMENT MECHANIC Last Filed Vital Signs Vital Sign Reading Time Taken Comments Blood Pressure 119/72 04/08/2024 7:29 AM SERVICE STATION EQUIPMENT MECHANIC Pulse 66 04/08/2024 7:29 AM SERVICE STATION EQUIPMENT MECHANIC Temperature 36.7 C (98.1 F) 04/08/2024 7:10 AM SERVICE STATION EQUIPMENT MECHANIC Respiratory Rate 18 04/08/2024 7:29 AM SERVICE STATION EQUIPMENT MECHANIC Oxygen Saturation 100% 04/08/2024 7:29 AM SERVICE STATION EQUIPMENT MECHANIC Inhaled Oxygen Concentration - - Weight 73.8 kg (162 lb 9.6 oz) 02/26/2024 8:51 A M SERVICE STATION EQUIPMENT MECHANIC Height 172.7 cm (5' 8 ) 02/26/2024 8:51 AM SERVICE STATION EQUIPMENT MECHANIC Body Mass Index 24.72 02/26/2024 8:51 AM SERVICE STATION EQUIPMENT MECHANIC Plan of Treatment Not on file Procedures Procedure Name Priority Date/Time Associated Diagnosis Comments PAIN MGMT IMAGING CERVICAL/THORACIC EPIDURAL STEROID INJ Schedule Routine, Read Routine (OP Routine) 04/08/2024 7:32 AM SERVICE STATION EQUIPMENT MECHANIC Cervical radiculopathy THROAT CULTURE Routine 02/26/2024 9:20 AM SERVICE STATION EQUIPMENT MECHANIC Sore throat POCT INFLUENZA A/B Routine 02/26/2024 9: 15 AM SERVICE STATION EQUIPMENT MECHANIC Sore throat COVID-19 POC Routine 02/26/2024 9:15 AM SERVICE STATION EQUIPMENT MECHANIC Sore throat POCT RAPID STREP Routine 02/26/2024 9:15 AM SERVICE STATION EQUIPMENT MECHANIC Sore throat EGFR Routine 02/15/2024 10:20 AM SERVICE STATION EQUIPMENT MECHANIC DIFFERENTIAL AUTO Routine 02/15/2024 10:20 AM SERVICE STATION EQUIPMENT MECHANIC VITAMIN D 25 HYDROXY Routine 02/15/2024 10:20 AM SERVICE STATION EQUIPMENT MECHANIC CBC WITH AUTO DIFFERENTIAL Routine 02/15/2024 10:20 AM SERVICE STATION EQUIPMENT MECHANIC LIPID PANEL Routine 02/15/2024 10:20 AM SERVICE STATION EQUIPMENT MECHANIC COMPREHENSIVE METABOLIC PANEL Routine 02/15/2024 10:20 AM SERVICE STATION EQUIPMENT MECHANIC URINALYSIS AND REFLEX TO MICROSCOPIC AND CULTURE Routine 02/15/2024 10:20 AM SERVICE STATION EQUIPMENT MECHANIC MRI CERVICAL SPINE WO CONTRAST Schedule Routine, Read Routine (OP Routine) 02/06/2024 9:13 AM SERVICE STATION EQUIPMENT MECHANIC Degenerative disc disease, cervical Biceps tendinitis of left upper extremity Degenerative superior labral layymuei-by-iqtoxra or (SLAP) tear of left shoulder [place] ARTHROCENTESIS ASPIR&/INJ MAJOR JT/BURSA W/O US Routine 01/24/2024 3:30 PM SERVICE STATION EQUIPMENT MECHANIC Adhesive capsulitis of left shoulder Chronic left shoulder pain SCREENING MAMMOGRAM Schedule Routine, Read Routine (OP Routine) 04/14/2021 from Last 3 Months or Most Recently Relevant to Health Maintenance Results * Imaging Cervical/Thoracic Epidural Steroid INJ (43378) (04/08/2024 7:32 AM SERVICE STATION EQUIPMENT MECHANIC) Narrative RAD_PACS_CH - 04/08/2024 7:32 AM SERVICE STATION EQUIPMENT MECHANIC The images from this study are not interpreted by Radiology. Please refer to the physician's procedure / OR operative note. Floyd Chiang MD IMG PAIN MGMT PROCEDU RES Final Result Performing Organization Address [facility]/ZIP Co de Phone Number RAD_PACS_CH * Throat culture Throat (02/26/2024 9:20 AM SERVICE STATION EQUIPMENT MECHANIC) Report Final Report: No growth of pathogens. Comment:Testing performed by : [facility], [address] [place]., [address] Throat 02/26/2024 9:20 AM SERVICE STATION EQUIPMENT MECHANIC 02/26/2024 6:12 PM SERVICE STATION EQUIPMENT MECHANIC Narrative [facility] - 02/27/2024 1:42 PM SERVICE STATION EQUIPMENT MECHANIC Testing performed by [facility] Microbiology Laboratory ([phone]). Diane Walsh NP LAB MICROBIOLOGY - GENERAL ORDERABLES Final Result Performing Organization Address [facility]/RUST Co de Phone Number [facility] [address] Department [place] [address] * COVID-19 POC (02/26/2024 9:15 AM SERVICE STATION EQUIPMENT MECHANIC) Pathologist [facility] COVID-19 Ag POC (BD Veritor) Presumptive Negative Presumptive Negative, Invalid [facility] Nasal 02/26/2024 9:15 AM SERVICE STATION EQUIPMENT MECHANIC Diane Walsh NP POINT OF CARE TEST ORDERAB LES Final Result Performing Organization Address [facility]/RUST Co de Phone Number [facility] [place] [address], [facility] * POCT influenza A/B (02/26/2024 9:15 AM SERVICE STATION EQUIPMENT MECHANIC) Rapid Influenza A Ag Negative Negative, Invalid Rapid Influenza B Ag Negative Negative, Invalid Nasal 02/26/2024 9:15 AM SERVICE STATION EQUIPMENT MECHANIC Diane Walsh NP POINT OF CARE TEST ORDERAB LES Final Result * POCT rapid strep A (02/26/2024 9:15 AM SERVICE STATION EQUIPMENT MECHANIC) Pathologist [facility] Rapid Strep A, POC Negative Negative Swab 02/26/2024 9:15 AM SERVICE STATION EQUIPMENT MECHANIC us Diane Walsh NP POINT OF CARE TEST ORDERAB LES Final Result * eGFR (02/15/2024 10:20 AM SERVICE STATION EQUIPMENT MECHANIC) Pathologist [facility] eGFR 88 >=60 mL/min/1. 73 m2 Comment: [...] was last reviewed 2021. Testing performed by: [facility], [address] [place] [address]., [address] Blood 02/15/2024 10:2 0 AM SERVICE STATION EQUIPMENT MECHANIC 02/15/2024 12:00 PM SERVICE STATION EQUIPMENT MECHANIC us Iraj Rogers MD LAB BLOOD ORDERABLES Fin al Result [facility] [place] [facility] Department [place] [address] * Differential, auto (02/15/2024 10:20 AM SERVICE STATION EQUIPMENT MECHANIC) Neutrophil abs 2.3 1.5 - 6.5 K/cumm Comment:Testing performed by : [facility], [address] [place] [address]., [address] Imm gran abs 0.0 0.0 - 0.1 K/cumm [facility] ([place]) Comment:Testing performed by : [address], [address] Lymphocyte abs 1.7 0.8 - 3.3 K/cumm [facility] ([place]) Comment:Testing performed by : [address], [address] Monocyte abs 0.2 0.2 - 0.8 K/cumm [facility] ([place]) Comment:Testing performed by : [address], [address] Eosinophil abs 0.2 0.0 - 0.5 K/cumm [facility] ([place]) Comment:Testing performed by : [address], [address] Basophil abs 0.0 0.0 - 0.1 K/cumm [facility] ([place]) Comment:Testing performed by : [address], [address] Neutrophil pct 52.3 % [facility] ([place]) Comment: Interpretive Data Percent cell count reference ranges are not reported, since discordance with absolute values may lead to misinterpretation of CBC data. Current Interpretive Data was last revised on 2017. Testing performed by: [address], [address] Imm gran pct 0.0 % [facility] ([place]) Comment: Interpretive Data Percent cell count reference ranges are not reported, since discordance with absolute values may lead to misinterpretation of CBC data. Current Interpretive Data was last revised on 2017. Testing performed by: [address], [address] Lymphocyte pct 38.9 % [facility] ([place]) Comment: Interpretive Data Percent cell count reference ranges are not reported, since discordance with absolute values may lead to misinterpretation of CBC data. Current Interpretive Data was last revised on 2017. Testing performed by: [facility], [address] [place] [address]., [address] Monocyte pct 4.7 % [facility] ([place]) Comment: Interpretive Data Percent cell count reference ranges are not reported, since discordance with absolute values may lead to misinterpretation of CBC data. Current Interpretive Data was last revised on 2017. Testing performed by: [facility], [address] [place] [address]., [address] Eosinophil pct 3.4 % [facility] ([place]) Comment: Interpretive Data Percent cell count reference ranges are not reported, since discordance with absolute values may lead to misinterpretation of CBC data. Current Interpretive Data was last revised on 2017. Testing performed by: [address], [address] Basophil pct 0.7 % [facility] ([place]) Comment: Interpretive Data Percent cell count reference ranges are not reported, since discordance with absolute values may lead to misinterpretation of CBC data. Current Interpretive Data was last revised on 2017. Testing performed by: [address] [address] Blood 02/15/2024 10:2 0 AM SERVICE STATION EQUIPMENT MECHANIC 02/15/2024 11:35 AM SERVICE STATION EQUIPMENT MECHANIC us Iraj Rogers MD LAB BLOOD ORDERABLES Fin al Result [facility] ([place]) 1 [facility] Department [place] [address] * Urinalysis reflex to microscopic and culture Urine (02/15/2024 10:20 AM SERVICE STATION EQUIPMENT MECHANIC) Color, ur Yellow Yellow Comment:Testing performed by : [address], [address] Clarity, ur Clear Clear [facility] ([place]) Comment:Testing performed by : [address], [address] Specific gravity, ur 1.017 1.003 - 1.030 [facility] ([place]) Comment:Testing performed by : [address], [address] pH, urine 8.0 [facility] ([place]) Comment: Interpretive Data U rine pH is affected by diet, medications, systemic acid-base disturbances, and renal tubular function. pH may affect urinary stone formation. For example, urine pH below 6.0 may help reduce the tendency for calcium phosphate stones and pH greater than 6.0 may reduce the tendency for uric acid stone formation. Source: [facility] Current Interpretive Data was last revised on 2017 Testing performed by: [address], [address] Protein, ur ql Negative Negative [facility] ([place]) Comment:Testing performed by : [address], [address] Glucose, ur ql Negative Negative [facility] ([place]) Comment:Testing performed by : [address], [address] Ketones, ur Negative Negative [facility] ([facility]) Comment:Testing performed by : [address], [address] Bilirubin, ur Negative Negative [facility] ([place]) Comment:Testing performed by : [address], [address] Blood, ur Negative Negative [facility] ([place]) Comment:Testing performed by : [address], [address] Urobilinogen, ur <2.0 <2.0 mg/dL [facility] ([place]) Comment:Testing performed by : [address], [address] Nitrite, ur Negative Negative [facility] ([place]) Comment:Testing performed by : [address], [address] Leukocyte esterase, ur Negative Negative [facility] ([place]) Comment:Testing performed by : [address], [address] UA reflex comment Reflex conditions for microscopic UA and culture not met. [facility] ([place]) Comment:Testing performed by : [address], [address] Urine 02/15/2024 10:2 0 AM SERVICE STATION EQUIPMENT MECHANIC 02/15/2024 11:35 AM SERVICE STATION EQUIPMENT MECHANIC us Iraj Rogers MD LAB MICROBIOLOGY - GENER AL ORDERABLES Final Result [facility] ([place]) 1 [facility] Department [place] [address] * (ABNORMAL) CBC with auto differential (02/15/2024 10:20 AM SERVICE STATION EQUIPMENT MECHANIC) WBC 4.5 3.8 - 9.9 K/cumm Comment:Testing performed by : [address], [address] Hgb 13.0 11.9 - 15.5 g/dL [facility] ([place]) Comment:Testing performed by : [address], [address] Hct 40.4 35.6 - 45.5 % [facility] ([place]) Comment:Testing performed by : [address], [address] Plt 202 150 - 400 K/cumm [facility] ([place]) Comment:Testing performed by : [address], [address] MPV 9.5 9.1 - 12.3 fL [facility] ([place]) Comment:Testing performed by : [address], [address] RBC 4.53 3.90 - 5.20 M/cumm [facility] ([place]) Comment:Testing performed by : [address], [address] MCV 89.2 81.3 - 96.4 fL [facility] ([place]) Comment:Testing performed by : [address], [address] MCH 28.7 27.1 - 33.3 pg [facility] ([place]) Comment:Testing performed by : [address], [address] MCHC 32.2(L) 32.3 - 35.7 g/dL [facility] ([place]) Comment:Testing performed by : [address] [place] [address] RDW CV 13.3 11.1 - 14.9 % [facility] ([place]) Comment:Testing performed by : [facility], [address] [place] [address], [address] RDW SD 43.7 35.7 - 48.1 fL [facility] ([place]) Comment:Testing performed by : [facility], [address] [place] [address], [address] NRBC abs 0.00 0.00 - 0.01 K/cumm [facility] ([place]) Comment:Testing performed by : [facility], [address] [place] [address], [address] Blood 02/15/2024 10:2 0 AM SERVICE STATION EQUIPMENT MECHANIC 02/15/2024 11:35 AM SERVICE STATION EQUIPMENT MECHANIC us Iraj Rogers MD LAB BLOOD ORDERABLES Fin al Result Performing Organization Address City/[facility]/ZIP Co de Phone Number [facility] ([place]) 1 [facility] [employer] [place] [address] * Vitamin D 25 hydroxy (02/15/2024 10:20 AM SERVICE STATION EQUIPMENT MECHANIC) Vitamin D 25-OH 61 30 - 80 ng/mL Comment:Testing performed by : [facility], [address] [place] [address], [address] Blood 02/15/2024 10:2 0 AM SERVICE STATION EQUIPMENT MECHANIC 02/15/2024 11:35 AM SERVICE STATION EQUIPMENT MECHANIC us Iraj Rogers MD LAB BLOOD ORDERABLES Fin al Result [facility] ([place]) 1 [facility] [place] [address] * Lipid panel (02/15/2024 10:20 AM SERVICE STATION EQUIPMENT MECHANIC) Cholesterol 176 30 - 199 mg/dL Comment: [...] last revised on 2017. Testing performed by: [facility], [address] [place] [address]., [address] Triglycerides 49 <=149 mg/dL [facility] ([place]) Comment: Interpretive Data Ages < [...] last revised on 2017. Testing performed by: [facility], [address] [place] [address]., [address] HDL 65 >=40 mg/dL [facility] ([facility]) Comment: Interpretive Data Ages < [...] last revised on 2017. Testing performed by: [facility], [address] [place] [address]., [address] LDL, calculated 101 <=129 mg/dL [facility] ([place]) Comment: Interpretive Data Ages < or = 19 years Acceptable: <110 mg/dL Borderline high: 110-129 mg/dL High: >or= 130 mg/dL Ages > or = 20 years Optimal: <100 mg/dL Near optimal: 100-129 mg/dL Borderline high: 130-159 mg/dL High: >160 mg/dL Calculated using the Shivam LDL-C estimating equation. This equation was implemented [...] last revised on 2023. Testing performed by: [address] [address] Non-HDL Cholesterol 111 mg/dL [facility] ([place]) Comment: Interpretive Data Ages < or [...] last revised on 2017. Testing performed by: [address] [address] Chol/HDL ratio 3 [facility] ([place]) Comment:Testing performed by : [address] [address] Blood 02/15/2024 10:2 0 AM SERVICE STATION EQUIPMENT MECHANIC 02/15/2024 11:35 AM SERVICE STATION EQUIPMENT MECHANIC us Iraj Rogers MD LAB BLOOD ORDERABLES Fin al Result [facility] ([place]) 1 [facility] Department [place] [address] * Comprehensive metabolic panel (02/15/2024 10:20 AM SERVICE STATION EQUIPMENT MECHANIC) Sodium 140 135 - 145 mmol/L Comment:Testing performed by : [address] [address] Potassium, pl 4.0 3.3 - 4.9 mmol/L [facility] ([place]) Comment:Testing performed by : [facility], [address] [place] [address], [address] Chloride 102 97 - 110 mmol/L [facility] ([place]) Comment:Testing performed by : [facility], [address] [place] [address], [address] CO2 28 22 - 32 mmol/L [facility] ([place]) Comment:Testing performed by : [address], [address] Anion gap 10 2 - 15 mmol/L [facility] ([place]) Comment:Testing performed by : [address], [address] BUN 15 6 - 25 mg/dL [facility] ([place]) Comment:Testing performed by : [address], [address] Creatinine 0.82 0.60 - 1.10 mg/dL [facility] ([place]) Comment:Testing performed by : [address], [address] Glucose 78 70 - 199 mg/dL [facility]ER [...] classification and Diagnosis of Diabetes Diabetes Care 202; 46: S19-S40. Current interpretive data was last revised 2022. Testing performed by: [address], [address] Calcium 9.3 8.5 - 10.3 mg/dL [facility] ([place]) Comment:Testing performed by : [facility], [address] [place] [address]., [address] Bilirubin, total 1.0 0.1 - 1.2 mg/dL [facility] ([place]) Comment:Testing performed by : [facility], [address] [place] [address]., [address] Protein, pl 7.2 6.5 - 8.5 g/dL [facility] ([place]) Comment:Testing performed by : [facility], [address] [place] [address], [address] Albumin 4.2 3.5 - 5.0 g/dL [facility] ([place]) Comment:Testing performed by : [facility], [address] [place] [address], [address] Alk phos 57 40 - 130 Units/L [facility] ([place]) Comment:Testing performed by : [facility], [address] [place] [address], [address] ALT 39 7 - 45 Units/L [facility] ([place]) Comment:Testing performed by : [facility], [address] [place] [address], [address] AST 31 10 - 45 Units/L [facility] ([place]) Comment:Testing performed by : [facility], [address] [place] [address], [address] Blood 02/15/2024 10:2 0 AM SERVICE STATION EQUIPMENT MECHANIC 02/15/2024 11:35 AM SERVICE STATION EQUIPMENT MECHANIC us Iraj Rogers MD LAB BLOOD ORDERABLES Fin al Result Performing Organization Address City/State/[place] Co de Phone Number [facility] ([place]) 1 [facility] Department [place] [address] * MRI Cervical Spine WO Contrast (02/06/2024 9:13 AM SERVICE STATION EQUIPMENT MECHANIC) Anatomical Region Laterality Modality Spine N/A Magnetic Resonan ce 02/06/2024 10:0 0 AM SERVICE STATION EQUIPMENT MECHANIC Narrative 02/06/2024 10:10 AM SERVICE STATION EQUIPMENT MECHANIC EXAM DESCRIPTION: MRI CERVICAL SPINE WO CONTRAST [...] disc is normal in configuration. There is xufg-bn-ufwcqvpn facet arthropathy. There is trace uncovertebral joint [...] C6-C7: Posterior disc osteophyte complex. There is izrj-ws-hpnuevsv facet arthropathy. There is mild left and moderate right uncovertebral joint disease. There is canz-iz-sfxcsoft bilateral neuroforaminal stenosis. There is no spinal [...] axis and is likely reactive. IMPRESSION: 1. Zckf-tz-dfatrsvk degenerative changes of the cervical spine as described above. 2. Left C4-C5 moderate neural foraminal stenosis. THIS IS AN ELECTRONICALLY VERIFIED FINAL REPORT 02/06/2024 10:10 AM - Electronically signed by Seun Pritchett M.D. MM: MM Report ID: [id number] Reading Location: [id number] Procedure Note Seun Pritchett MD - 02/06/2024 [...] disc is normal in configuration. There is fpey-tu-lmxivgvt facet arthropathy. There is trace uncovertebral joint [...] C6-C7: Posterior disc osteophyte complex. There is qkfq-md-axmlhkkzhwwvp arthropathy. There is mild left and moderate right uncovertebral joint disease. There is wgeg-db-qqibzdfc bilateral neuroforaminal stenosis.There is no spinal canal stenosis. C7-T1: The disc is normal in configuration. There is no facetarthropathy. There is no uncovertebral joint disease. There is no neuroforaminal stenosis. There is no spinal canal stenosis. BASE OF BRAIN: No significant finding. UPPER THORACIC: Incompletely imaged. No significant spinal stenosis or foraminal stenosis. OTHER: Multiple palatine tonsilliths are noted. Mildly prominent qcjcs0U lymph node measures 9 mm in short axis and is likely reactive. IMPRESSION: 1. Mnxa-pe-mffpuhau degenerative changes of the cervical spine asdescribed above. 2. Left C4-C5 moderate neural foraminal stenosis. THIS IS AN ELECTRONICALLY VERIFIED FINAL REPORT 02/06/2024 10:10 AM - Electronically signed by Seun Pritchett M.D. MM: MM Report ID: [id number] Reading Location: [place] [address] Barby NAIK IMG MRI PROCEDURES Samia l Result * [place] ARTHROCENTESIS ASPIR&/INJ MAJOR JT/BURSA W/O US (01/24/2024 3:30 PM SERVICE STATION EQUIPMENT MECHANIC) Narrative Barby Leary PA - 01/24/2024 3:30 PM SERVICE STATION EQUIPMENT MECHANIC Barby Leary PA 01/26/2024 11:22 AM Large [...] the procedure well with no immediate complications Barby NAIK IN CLINIC/BEDSIDE ORDER ZHANNA Final Result * Screening Mammogram (04/14/2021) Anatomical Region Laterality Modality Breast N/A Mammography 04/14/2021 Historical Provider MD [facility] MAMMO PROCEDURES Samia l Result from Last 3 Months or Most Recently Relevant to Health [place] [address] [place] [address] [place] [address] [facility] [place] [address] [address] [address] Advance Directives For more information, please contact: [phone] * Full Code (Latest Code Status on File) Date Activated Date Inactivated Comments 05/09/2022 4:01 PM 05/10/2022 12:16 AM * Full Code Date Activated Date Inactivated Comments 08/28/2020 8:00 AM 08/28/2020 7:16 PM * Full Code Date Activated Date Inactivated Comments 08/27/2020 8:43 PM 08/28/2020 8:00 AM Care Teams 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
--- OUTSIDE RECORDS SUMMARY | 2024-04-25 07:32 | XMS_ITS | Clinical Summary ---
Author Organization [facility] Address [address] [place] [address] Care Team Providers Care Tax Services Specialist Name Role Phone Unavailable Primary Care Provider Unavailabl e Source Comments [facility],non-owned Affiliates and Associated Physician Practices is amultiple site organization consisting of ambulatory clinics and hospital sitesin [place], [place], [place] and [place]. This disclosure is being madepursuant to the Care Everywhere program and may not contain all information available regarding this patient. Last updated 17.[facility] Medications * Be aware that medications may [...] mouth DAILY. 07/26/2016 Active Cholecalciferol (VITAMIN D3) 55429 UNITS Take 1 capsule by mouth DAILY. [...] Orientation Not on file Plan of Treatment Health Maintenance Due Date Last Done Comments COLOGUARD (AGES 45-75) - COL ON CA SCREENING 1976 COLON MONITORING 1976 COLONOSCOPY - COLON CA SCREENING 1976 CT COLONOGRAPHY - COLON CA SCREENING 1976 Colorectal Cancer Screening 1976 FIT - COLON CA SCREENING 1976 FLEX SIG - COLON CA SCREENING 1976 LIPID TESTING 1976 MAMMOGRAM 1976 PAP SMEAR 1976 HIV SCREENING 01/03/1991 HEPATITIS C SCREENING 12/30/1993 DTAP/TDAP/TD VACCINES (1 - Tdap) 01/03/1995 HEPATITIS B VACCINE (1 of 3 - 19+ 3-dose series) 01/03/1995 PNEUMOCOCCAL VACCINE (1 of 2 - PCV) 01/03/1995 COVID-19 VACCINE (1 - 2023-2 5 season) 2023 INFLUENZA VACCINE (#1) 2023 DEPRESSION SCREENING 03/05/2024 ZOSTER VACCINE (1 of 2) 01/03/2026 HIB VACCINE Aged Out No longer eligi ble based on patient's age to complete this topic HPV VACCINE Aged Out No longer eligi ble based on patient's age to complete this topic MENINGOCOCCAL (Group B) VACCINE Aged Out No longer eligible based on patient's age to complete this topic MENINGOCOCCAL VACCINE Aged Out No jair bell eligible based on patient's [place] [address]
--- OUTSIDE RECORDS SUMMARY | 2024-04-25 07:32 | XMS_ITS | Encounter Summary ---
Author Organization [facility] Address [address] [place] [address] Phone Care Team Providers Care Dobie Worker Name Role Phone Iraj Rogers MD Primary Care Provider + Pete Kim MD Unavailable [phone] Encounter Details Date Type Department Care Team (Latest Contact Info) Description 12/19/2019 Orders Only [facility] EML Scanning, Provider Social History Tobacco Use Types Packs/Day Years Used Date Smoking Tobacco: Never Assessed Comments Unknown Sex and Gender Information Value Date Recorded Sex Assigned at Not on file Legal Sex Female 5:44 AM AUXILIARY OPERATOR Gender Identity Female 03/24/2020 10:33 AM AUXILIARY OPERATOR Sexual Orientation Straight 03/24/2020 10 :33 AM AUXILIARY OPERATOR documented as of this encounter Plan of Treatment Not on file documented as of this encounter Procedures Procedure Name Priority Date/Time Associated Diagnosis Comments SCAN - LABS 12/19/2019 documented in this encounter Results * SCAN - LABS (12/19/2019) us Provider Scanning Final Result documented in this encounter Visit Diagnoses Not on filedocumented in this encounter Additional Health Concerns Infection Onset Date Last Indicated Resolved Time COVID: Suspected 04/08/2021 04/08/2021 04/08/2021 9:22 AM AUXILIARY OPERATOR COVID: Suspected 11/07/2023 11/07/2023 11/07/2023 6:03 PM CDT COVID: Suspected 02/26/2024 02/26/2024 02/26/2024 9:17 AM AUXILIARY OPERATOR documented as of this encounter Care Teams Dobie Worker Relationship Specialty [place] [address] [facility] [place] [address] PCP - General 05/16/11 Pete Kim MD [address] [facility] [place] [address] Referring Physician Surgical Oncology 05/09/22 documented as of this encounter
--- OUTSIDE RECORDS SUMMARY | 2024-04-25 07:32 | XMS_ITS | Patient Health Summary ---
Author Organization [facility] Address [address] [place] [address] Care Team Providers Care Regulatory Compliance Manager Name Role Phone Unavailable Primary Care Provider Unavailabl e Note from [facility],non-owned Affiliates and Associated Physician Practices is amultiple site organization consisting of ambulatory clinics and hospital sitesin [place], [place], [place] and [place]. This disclosure is being madepursuant to the Care Everywhere program and may not contain all information available regarding this patient. Last updated 17.[facility] Medications * Be aware that medications may not be up to date on this document. Alwaysverify current medications with the patient. * Selenium 200 MCG(Started 07/26/2016) Take 1 tablet by mouth DAILY. * ferrous sulfate 325 (65 FE) MG tablet(Started 07/26/2016) Take 1 tablet by mouth DAILY. * Ascorbic Acid (VITAMIN C) 100 MG(Started 07/26/2016) Take 1 tablet by mouth DAILY. * Cholecalciferol (VITAMIN D3) 84186 UNITS(Started 07/26/2016) Take 1 capsule by mouth DAILY. * Cyanocobalamin (B-12) 1000 MCG(Started 07/26/2016) Take 1 tablet by mouth DAILY. * methIMAzole (TAPAZOLE) 5 MG tablet(Started 06/21/2016) 1 refill left * cetirizine (ZYRTEC ALLERGY) 10 MG gel capsule(Started 07/26/2016) Take 1 tablet by mouth DAILY. Active Problems Problem Noted Date Diagnosed Date [...] on file Sexual Orientation Not on file Procedures * HCG BETA BLOOD QUANTITATIVE(Performed 11/29/2018) Results * HCG BETA BLOOD QUANTITATIVE (11/29/2018 3:42 PM CDT) hCG Quantitative <1.20 mIU/mL 11/30/19 19 6:11 PM CDT [facility] Blood BLOOD SPECIMEN / Unknown Venipuncture / Unknown 11/29/2018 3:42 PM CDT 11/29/2018 5:44 PM CDT Narrative [facility] - 11/29/2018 6:11 PM CDT hCG [...] Mckeon MD LAB - CHEMISTRY KIRK BORREGO [facility] [address] [place] [address]
== END 2024-04-25 07:24 | disposition home or self-care (01) ==
LOC: CHSIMG 07:27
PROVIDERS: PCP Internal Medicine Geriatric Medicine; Visit Provider Obstetrics & Gynecology
DX: Z12.31 Encounter for screening mammogram for malignant neoplasm of breast (principal)
CPT/HCPCS: 77063; 77067

== ENCOUNTER 2024-07-29 09:00 | Outpatient (RCR) | payer OTHER, SELFPAY ==
--- NOTE | 2024-07-09 09:08 | PTOPEVAL1 ---
Assessment and note entered by Logan Montero Evaluation Information Assessment Status Evaluation ICD-10 Condition Codes (PT) Cervicalgia M54.2,Radiculopathy, cervical M54.13 Onset 07/09/22 Subjective Information Pt. reports having a thyroidectomy in 2020. She reports noticing pain for the first time after that surgery. She states that the thyroid grew back and underwent a second surgery in 2022. She states that most pain is on the left side of the neck. She describes pain radiating into the area of the upper trap and up to the base of the skull. She states that she also has difficulty with the left shoulder. She reports that she cannot currently reach behind her back. She states that she is currently going back to school. She states that she is spending up to 2 hours working and is aware that posture is playing a role in her pain. She states that she has no symptoms below the shoulder. She reports that she recently had injection into the back of the shoulder, front of the shoulder and neck with pain management. She reports that injection in the front of the shoulder and neck helped to reduce her pain. She states that her goal is to reduce her pain. Reported Pain Level Pain Score 3,3: Self Report Assessment PT Clinical Summary Pt. is a 49 year old female who presents with a medical diagnosis of cervical radiculopathy due to spinal stenosis, as well as left shoulder impingement. She presents with impaired ROM at the left shoulder and c-spine, impaired postural awareness, pain, u.e. weakness and functional decline on this date. Continued skilled PT is indicated in order to improve these areas to allow for improve comfort and efficiency with IADL performance. Plan of Care Interventions Electrical Stimulation,Hot Pack/Cold Pack,Manual Therapy,Mechanical Traction,Patient/Caregiver Education,Therapeutic Activities,Therapeutic Exercise PT Services Indicated Yes Treatment Frequency and 2x/week x 10 visits Duration These treatments will address the objective and functional deficits as defined above. The patient will be advanced safely and appropriately in order for the patient to progress towards his/her prior level of function. Additional exercises will be introduced and as well as a comprehensive home exercise program upon discharge, if needed, ?to ensure carryover of functional gains achieved in the clinic. This treatment plan has been reviewed and agreement upon by the patient.
--- NOTE | 2024-07-09 09:09 | OPREHPOC ---
Outpatient Therapy Plan of Care This is a Multidisciplinary Plan of Care that may contain components documented by all disciplines (PT, OT, and ST.) PT Problem 1 PT Problem #1 Knowledge Deficit PT Goal 1 Goal / Goal Update Pt. will be independent with a HEP addressing cervical ROM and postural awareness. Target Visit 2 PT Problem 2 PT Problem #2 Pain PT Goal 1 Goal / Goal Update Pt. will report pain at the c-spine and left shoulder to 2/10 at worst for a 2 week period Pt. will sleep through the night without pain disturbance. Target Visit 10 PT Problem 3 PT Problem #3 Impaired Range of Motion PT Goal 1 Goal / Goal Update Pt. will demonstrate symmetry with bilateral shoulder IR to assist with ease of dressing. Target Visit 10 PT Problem 4 PT Problem #4 Impaired Functional Mobility PT Goal 1 Goal / Goal Update Pt. will present with less than 10% limitation on the Quick DASH indicating significant functional improvement. Target Visit 10 PT Problem 5 PT Problem #5 Impaired Strength PT Goal 1 Goal / Goal Update Pt. will demonstrate 5/5 proximal u.e. strength in all muscle groups Target Visit 10
--- NOTE | 2024-08-01 08:27 | PCPTNOTE ---
Patient called to cancel therapy appointment for 08/01/24 with front loader residential driver staff.
--- NOTE | 2024-08-05 15:12 | PCPTNOTE ---
Patient called to cancel appointment per office staff.
--- NOTE | 2024-11-14 13:26 | PTOPDC ---
Assessment and note entered by Buster Ogden, PT Evaluation Information Assessment Status Discharge - Pt Not Present ICD-10 Condition Codes (PT) Cervicalgia M54.2,Radiculopathy, cervical M54.13 Onset 07/09/22 Subjective Information Pt. reports having a thyroidectomy in 2020. She reports noticing pain for the first time after that surgery. She states that the thyroid grew back and underwent a second surgery in 2022. She states that most pain is on the left side of the neck. She describes pain radiating into the area of the upper trap and up to the base of the skull. She states that she also has difficulty with the left shoulder. She reports that she cannot currently reach behind her back. She states that she is currently going back to school. She states that she is spending up to 2 hours working and is aware that posture is playing a role in her pain. She states that she has no symptoms below the shoulder. She reports that she recently had injection into the back of the shoulder, front of the shoulder and neck with pain management. She reports that injection in the front of the shoulder and neck helped to reduce her pain. She states that her goal is to reduce her pain. Assessment PT Clinical Summary Patient discharged at this time secondary to failure to attend therapy. Patient was present for 4 visits followed by 3 consecutive cancellations. Please refer to last treatment note for discharge status. Plan of Care PT Services Indicated Yes
== END 2024-10-07 23:59 | disposition home or self-care (01) ==
LOC: ANHGOSHPT 09:00
PROVIDERS: PCP Internal Medicine Geriatric Medicine
DX: M54.12 Radiculopathy, cervical region (principal); M48.02 Spinal stenosis, cervical region
CPT/HCPCS: 97110; 97140; 97161

== ENCOUNTER 2024-12-16 00:45 | Day surgery (SDC) | payer OTHER, SELFPAY ==
[2024-12-08 10:05] VITALS: BMI 27.4
--- OUTSIDE RECORDS SUMMARY | 2024-12-16 00:48 | XMS_ITS | Clinical Summary ---
Author Organization [facility] Address [address] [place] [address] Care Team Providers Care Hydraulic Auto Jack Mechanic Name Role Phone Unavailable Primary Care Provider Unavailabl e Source Comments [facility],non-owned Affiliates and Associated Physician Practices is amultiple site organization consisting of ambulatory clinics and hospital sitesin [place], [place], [place] and [place]. This disclosure is being madepursuant to the Care Everywhere program and may not contain all information available regarding this patient. Last updated 17.[facility] Medications * Be aware that medications may not be up to date on this document. Alwaysverify current medications with the patient. Selenium 200 MCG Take 1 tablet by mouth DAILY. 07/26/2016 Active ferrous sulfate 325 (65 FE) MG tablet Take 1 tablet by mouth DAILY. 07/26/2016 Active Ascorbic Acid (VITAMIN C) 100 MG Take 1 tablet by mouth DAILY. 07/26/2016 Active Cholecalciferol (VITAMIN D3) 16479 UNITS Take 1 capsule by mouth DAILY. [...] drink = 0.6 oz pur e alcohol) Comments Unknown Sex and Gender Information Value Date Recorded Sex Assigned at Not on file Legal Sex Female 5:27 PM SIGNAL OPERATOR TECHNICAL Gender Identity Not on file Sexual Orientation [...] SCREENING 1976 LIPID TESTING 1976 MAMMOGRAM 1976 HIV SCREENING 01/03/1991 HEPATITIS C SCREENING 12/30/1993 DTAP/TDAP/TD VACCINES (1 - Tdap) 01/03/1995 HEPATITIS B VACCINE (1 of 3 - 19+ 3-dose series) 01/03/1995 PNEUMOCOCCAL VACCINE (1 of 2 - PCV) 01/03/1995 PAP SMEAR 01/03/1997 DEPRESSION SCREENING 03/05/2024 COVID-19 VACCINE (1 - 2023-2 5 season) 2024 INFLUENZA VACCINE (#1) 2024 ZOSTER VACCINE (1 of 2) 01/03/2026 HIB VACCINE Aged Out No longer eligi ble based on patient's age to complete this topic HPV VACCINE Aged Out No longer eligi ble based on patient's age to complete this topic MENINGOCOCCAL (Group B) VACC INE SHARED DECISION-MAKING Aged Out No longer eligibl e based on patient's age to complete this topic MENINGOCOCCAL GROUPS A/C/Y/W VACCINE Aged Out No longer eligible b ased on patient's age to [place] [address] [facility]
--- OUTSIDE RECORDS SUMMARY | 2024-12-16 00:48 | XMS_ITS | Encounter Summary ---
Author Organization [facility] Address [address] [place] [address] Phone Care Team Providers Care Space Control Agent Name Role Phone Iraj Rogers MD Primary Care Provider + Pete Kim MD Unavailable [phone] Encounter Details Date Type Department Care Team (Latest Contact Info) Description 12/19/2019 Orders Only [facility] EML Scanning, Provider Social History Tobacco Use Types Packs/Day Years Used Date Smoking Tobacco: Never Assessed Comments Unknown Sex and Gender Information Value Date Recorded Sex Assigned at Not on file Legal Sex Female 5:44 AM SOLDER TECHNICIAN Gender Identity Female 03/24/2020 10:33 AM SOLDER TECHNICIAN Sexual Orientation Straight 03/24/2020 10 :33 AM SOLDER TECHNICIAN documented as of this encounter Plan of [...] COVID: Suspected 04/08/2021 04/08/2021 04/08/2021 9:22 AM SOLDER TECHNICIAN COVID: Suspected 11/07/2023 11/07/2023 11/07/2023 6:03 PM CDT COVID: Suspected 02/26/2024 02/26/2024 02/26/2024 9:17 AM SOLDER TECHNICIAN documented as of this encounter Care Teams Space Control Agent Relationship Specialty [place] [address] [place] [address] PCP - General 05/16/11 Pete Kim MD [address] [place] [address] Referring Physician Surgical Oncology 05/09/22 documented as of this encounter
--- OUTSIDE RECORDS SUMMARY | 2024-12-16 00:48 | XMS_ITS | Clinical Summary ---
Author Organization [facility] Address [address] [place] [address] Care Team Providers Care Audit Analyst Name Role Phone Iraj Rogers MD Primary Care Provider [phone] Encounters Date Type Department Care Team Description 12/09/2024 1:08 PM CDT - 12/09/2024 11:59 PM CDT Hospital Encounter [facility] Diagnostic Imaging [address] [place] [address] Carmen Tripp, FINANCIAL SALES REPRESENTATIVE Discharge Disposition: Home or Self Care (Routine Discharge) 12/09/2024 Travel from Last 3 Months Immunizations Immunization Administration Dates Next Due Influenza Adult (Generic) 02/12/2022,02/27/2021 Social History Tobacco Use Types Packs/Day Years Used Date Smoking Tobacco: Never Assessed Comments Unknown Sex and Gender Information Value Date Recorded Sex Assigned at Female 12/09/2024 12:56 PM CDT Legal Sex Female 12:55 PM CDT Gender Identity Not on file Sexual Orientation Not on file Plan of Treatment Health Maintenance Due Date Last Done Comments Cervical Cancer Screening Pa p Smear (Age 30 to 64) Every 3 Years 1976 Colorectal Cancer Screening Colonoscopy (10 Years) 1976 Annual Physical 01/03/1979 Hepatitis C 01/03/1994 DTaP, Tdap and Td Vaccines ( 1 - Tdap) 01/03/1995 Hepatitis B Vaccines (1 of 3 - 19+ 3-dose series) 01/03/1995 Cervical Cancer Screening Pa p with HPV Testing (Age 30 to 64) Every 5 Years 01/03/2006 Cervical Cancer Screening wi th HPV 01/03/2006 Mammogram Screening 2016 PHQ-2 (Physician [place]) 03/05/2024 COVID-19 Vaccine (2024-04 6 season) 2024 02/12/2022, 02/27/2021 Influenza Adult (#1) 2024 02/12/2022, 02/27/2021 Meningococcal B Vaccine Aged Out No l onger eligible based on patient's age to complete this topic Meningococcal Vaccine Aged Out No jair bell eligible based on patient's age to complete this topic Pneumococcal Vaccine: Pediatrics (0 to 5 Years) and At-Risk Patients (6 to 49 Years) Aged Out No longer eligible b ased on patient's age to complete this topic RSV Immunizations Under 20 Months Aged Out No longer eligible b ased on patient's age to complete this topic Procedures Procedure Name Priority Date/Time Associated Diagnosis Comments XR WRIST RT MIN 3V CHAYA 12/09/2024 1: 29 PM CDT Infected superficial injury of right wrist from Last 3 Months Results * XR WRIST RT MIN 3V (12/09/2024 1:29 PM CDT) Anatomical Region Laterality Modality Wrist Radiographic Linda ging 12/09/2024 1:36 PM CDT Impressions 12/09/2024 1:38 PM CDT IMPRESSION: No acute osseous findings. Ordered By: CARMEN TRIPP Interpreted By: Damaso Farrell MD, 12/09/2024 1:36 PM Narrative 12/09/2024 1:38 PM CDT [address] [address] XR WRIST RT MIN 3V INDICATION: rt wrist injury, fall. TECHNIQUE: AP, lateral, oblique, and navicular views of the right wrist. 4 total images. COMPARISON: None FINDINGS: Carpal alignment appears maintained. Osseous structures are intact without convincing evidence for acute fracture or dislocation. Joint spaces are preserved. No aggressive osseous lesion. No radiopaque foreign body. Procedure Note Damaso Farrell MD - 12/09/2024 [facility] [address] [place] [address] XR WRIST RT MIN 3V INDICATION: rt wrist injury, fall. TECHNIQUE: AP, lateral, oblique, and navicular views of the right wrist. 4total images. COMPARISON: None FINDINGS: Carpal alignment appears maintained. Osseous structures are intact withoutconvincing evidence for acute fracture or dislocation. Joint spaces arepreserved. No aggressive osseous lesion. No radiopaque foreign body. IMPRESSION: No acute osseous findings. Ordered By: CARMEN TRIPP Interpreted By: Damaso Farrell MD, 12/09/2024 1:36 PM us Carmen Tripp FINANCIAL SALES REPRESENTATIVE GENERAL IMAGING Final Result from Last 3 [place] [address] [facility] Care Teams Audit Analyst Relationship Specialty [place] [address] [place] [address] PCP - General INTERNAL MEDICINE GERIATRIC MEDICINE 12/09/24
--- OUTSIDE RECORDS SUMMARY | 2024-12-16 00:48 | XMS_ITS | Encounter Summary ---
Author Organization [facility] Address [address] [place] [address] Care Team Providers Care Supervisor Mirror Fabrication Name Role Phone Unavailable Primary Care Provider Unavailabl e Encounter Details Date Type Department Care Team (Late st Contact Info) Description 11/29/2018 Lab Requisition [facility] [address] [place] [address] [place] [address] [facility] [place] [address] Social History Tobacco Use Types Packs/Day Years Used Date Smoking Tobacco: Every Day Smokeless Tobacco: Never Alcohol Use Standard Drinks/Week Comments No 0 (1 standard drink = 0.6 oz pur e alcohol) Comments Unknown Sex and Gender Information Value Date Recorded Sex Assigned at Not on file Legal Sex Female 5:27 PM UPHOLSTERER OUTSIDE Gender Identity Not on file Sexual Orientation [...] <1.20 mIU/mL 11/30/19 19 6:11 PM CDT [facility] Blood BLOOD SPECIMEN / Unknown Venipuncture / Unknown 11/29/2018 3:42 PM CDT 11/29/2018 5:44 PM CDT Narrative [facility] - 11/29/2018 6:11 PM CDT hCG [...] a serum FSH >20 IU/L makes unlikely. us Iraj Mckeon MD LAB - CHEMISTRY ORDERABLES Fin al Result [facility] [address] [place] [address] documented in this encounter Visit Diagnoses Not on filedocumented in this encounter
--- OUTSIDE RECORDS SUMMARY | 2024-12-16 00:48 | XMS_ITS | Encounter Summary ---
Author Organization [facility] Address [address] [place] [address] Phone Care Team Providers Care Geological Scout Name Role Phone Iraj Rogers MD Primary Care Provider + Pete Kim MD Unavailable [phone] Encounter Details Date Type Department Care Team (Late st Contact Info) Description 04/26/2022 Telephone [facility] [address] [facility] [address] [place] [address] Pete Kim MD [address] [place] [address] Social History Tobacco Use Types [...] on file Legal Sex Female 5:44 AM HOST HOSTESS Gender Identity Female 03/24/2020 10:33 AM HOST HOSTESS Sexual Orientation Straight 03/24/2020 10 :33 AM HOST HOSTESS documented as of this encounter Functional Status * AUDIT-C Score Answer Date of Assessment Author 6 [...] COVID: Suspected 02/26/2024 02/26/2024 02/26/2024 9:17 AM HOST HOSTESS documented as of this encounter Care Teams Geological Scout Relationship Specialty [place] [address] [address] PCP - General 05/16/11 Pete Kim MD [address] [place] [address] Referring Physician Surgical Oncology 05/09/22 documented as of this encounter
--- OUTSIDE RECORDS SUMMARY | 2024-12-16 00:48 | XMS_ITS | Clinical Summary ---
Author Organization [facility] Address [address] [place] [id number] Care Team Providers Care [employer] Name Role Phone Iraj Rogers MD Primary Care Provider + Pete Kim MD Unavailable [phone] Allergies Active Allergy Reactions Criticality Noted Date [...] drop into both eyes every morning Active azelastine (ASTELIN) 137 mcg (0.1 %) nasal spray USE 1 SPRAY IN EACH NOSTRIL TWICE DAILY DIRECTED 30 mL 6 4 Active selenium 200 mcg tablet Take by mouth physical therapy technician before breakfast Active calcium [id number]-c op-rashel 250 mg-40 mg- 125 unit-3.75mg tablet Take by mouth daily Active levothyroxine (SYNTHROID) 112 mcg tablet Take 1 tablet (112 mcg total) by mouth physical therapy technician before breakfast 90 tablet 3 5 05/10/19 26 Active estradioL (VIVELLE-DOT) 0.0375 mg/24 hr APPLY 1 PATCH TOPICALLY TO THE SKIN 2 TIMES A WEEK 5 Active progesterone (PROMETRIUM) 100 mg capsule Take 1 capsule (100 mg total) by mouth daily 5 Active semaglutide 1.7 mg/0.22 mL syringe 5 Active Active Problems Problem Noted Date Diagnosed Date Cervical radiculopathy 03/24/2024 Cervical spinal stenosis 03/24/2024 Subacromial bursitis of left shoulder joint 03/06 Hyperthyroidism 05/09/2022 Subclinical hyperthyroidism 12/06/2021 Overweight 12/06/2021 Amenorrhea 03/29/2021 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 Elevated prolactin level 12/24/2019 Resolved Problems Problem Noted Date Diagnosed Date Resolved Date Thyromegaly 12/24/2019 05/24/2021 Postoperative hypothyroidism 12/24/2019 12/06/2021 Surgical History Surgery Date Site/Laterality Comments ACHILLES [...] sensitive to lig ht Fibroids Pituitary cyst Graves disease Raf's thyroiditis Covid-19 01/30/2020 Awareness [...] Oakes Asthma Mother Stephenie Oakes Hypertension Mother Stepheniearmando Oakes Hypothyroidism Mother Stepheniearmando Javiert hypothyroidis m; Thyroid disease Mother Stephenie Oakes Cervical cancer Mother's Sister 1 Uterine cancer Mother's Sister 1 Cancer Mother's Sister 2 Bernilda Anesthesia problems Neg Hx Relation Name Status Comments Brothgeovanna Santamaria Mother Stephenie Oakes Mother's Sister 1 [...] do you have a drink containing alcohol? Never 05/09/2024 Q2: How many drinks containi ng alcohol do you have on a typical day when you are drinking? Patient does not drink Q3: How often do you have si x or more drinks on one occasion? 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 TECHNICIAN Obstetrics History Comments LMP: 07/27/2020 Last Filed Vital Signs Vital Sign Reading Time Taken Comments Blood Pressure 100/64 08/13/2024 2:43 PM CDT Pulse 77 08/13/2024 2:43 PM CDT Temperature 36.8 C (98.2 F) 08/13/2024 2:43 PM CDT Respiratory Rate 16 08/13/2024 2:43 PM CDT Oxygen Saturation 99% 08/13/2024 2:43 PM CDT Inhaled Oxygen Concentration - - Weight 75.8 kg (167 lb) 08/13/2024 2:43 PM CDT Height 172.7 cm (5' 8) 08/13/2024 2:43 PM CDT Body Mass Index 25.39 08/13/2024 2:43 PM CDT Plan of Treatment Health Maintenance Due Date Last Done Comments Cervical Cancer Screening 1976 Colon Cancer Screening-Colonoscopy 1976 Depression Screening 1976 Hepatitis C Screening 1976 DTaP/Tdap/Td Vaccine (1 - Tdap) 01/03/1987 Hepatitis B Screening 01/03/1994 Regular Well Visit/Exam 18-64 01/03/1994 Breast Cancer Screening-Mammogram 04/14/2022 022 Covid-19 Vaccine (2 - 2024- 6 season) 2024 02/27/2021 Influenza Vaccine (#1) 2024 02/27/2021 Pneumococcal vaccine <65 Aged Out No longer eligible based on patient's age to complete this topic Procedures Procedure Name Priority Date/Time Associated Diagnosis Comments SCREENING MAMMOGRAM Schedule Routine, Re ad Routine (OP Routine) 04/14/2021 from Last 3 Months or Most Recently Relevant to Health Maintenance Results * Screening Mammogram (04/14/2021) Anatomical Region Laterality Modality Breast N/A Mammography 04/14/2021 Historical Provider MD [facility] Samia l Result from Last 3 Months or Most Recently Relevant to Health Maintenance Insurance [place] [address] [address] [place] [address] [facility] [address] [place] [address] [place] [address] [place] [address] Advance Directives For more information, please contact: [phone] * Full Code (Latest Code Status on File) Date Activated Date Inactivated Comments 05/09/2022 4:01 PM 05/10/2022 12:16 AM * Full Code Date Activated Date Inactivated Comments 08/28/2020 8:00 AM 08/28/2020 7:16 PM * Full Code Date Activated Date Inactivated Comments 08/27/2020 8:43 PM 08/28/2020 8:00 AM Care Teams [employer] Relationship Specialty [place] [id number] [facility] [address] [place] [address] PCP - General 05/16/11 Pete Kim MD [address] [place] [address] Referring Physician Surgical Oncology 05/09/22
[2024-12-16 09:31] VITALS: BP 112/80; PULSE 58; RESP 18; TEMP 36.5; O2SAT 100
[2024-12-16] MEDS: LACTATED RINGERS 1,000 ML 150 ML IV CONT (09:42)
--- NOTE | 2024-12-16 10:08 | WPDANESEPPF ---
Anes - Initial Pre Proc Eval Procedure: Operation Date: 12/16/24 11:00 Proposed Procedures p Screening Colonoscopy - Daquan Pandya MD Date/Time: 12/16/24 10:08 Surgeon: Daquan Pandya MD Pre Op Diagnosis: Encounter for screening for malignant neoplasm of Patient Data Age: 49 Gender: F Height: 1.73 m Weight: 78.4 kg Last Vital Signs Temp 36.5 C 12/16/24 09:31 Pulse 58 L 12/16/24 09:31 Resp 18 12/16/24 09:31 BP 112/80 12/16/24 09:31 Pulse Ox 100 12/16/24 09:31 O2 Del Method Room Air 12/16/24 09:31 Allergies Allergy/AdvReac Type Severity Reaction Status Date / Time ceftriaxone Allergy Unknown Hives Verified 12/08/24 10:01 hydrocodone Allergy Unknown Itching Verified 12/08/24 10:01 ketorolac Allergy Unknown Hives Verified 12/08/24 10:01 metronidazole Allergy Unknown Hives Verified 12/08/24 10:01 skin cleanser Allergy Unknown Hives Verified 12/08/24 10:01 tramadol Allergy Unknown Itching Verified 12/08/24 10:01 amoxicillin (From Augmentin) Allergy Hives Verified 12/08/24 10:01 clavulanic acid (From Allergy Hives Verified 12/08/24 10:01 Augmentin) levofloxacin Allergy Dyspnea / Verified 12/08/24 10:01 SOB Penicillins Allergy Hives Verified 12/08/24 10:01 Home Medications ?Medication ?Instructions ?Recorded ?Confirmed ?Type azelastine 137 mcg (0.1 %) nasal 1 spray intranasal DAILY 08/28/21 12/08/24 History spray Lactobacillus 1 cap PO DAILY 07/25/22 12/08/24 History acidophilus-Bifidobac.animalis 2.5 billion cell capsule (Daily Probiotic) calcium carbonate (Calcium 600) 600 mg PO DAILY 07/25/22 12/08/24 History cetirizine 10 mg tablet (Zyrtec) 10 mg PO DAILY 07/25/22 12/08/24 History ergocalciferol (vitamin D2) 1,250 1,250 mcg PO WEEKLY 07/25/22 12/08/24 History mcg (50,000 unit) capsule fluticasone propionate 50 1 spray intranasal DAILY 07/25/22 12/08/24 History mcg/actuation nasal spray,suspension levothyroxine 137 mcg tablet 137 mcg PO DAILY 07/25/22 12/08/24 History selenium 100 mcg tablet 200 mcg PO DAILY 07/25/22 12/08/24 History triamcinolone acetonide 0.1 % 1 applic topical BID PRN rash #15 09/15/24 12/08/24 Rx topical ointment grams progesterone micronized 100 mg See Rx Instructions .Route 09/30/24 12/08/24 Rx capsule .COMPLEX #90 caps estradiol 0.0375 mg/24 hr See Rx Instructions .Route 12/16/24 12/16/24 Rx semiweekly transdermal patch .COMPLEX #25 patches Patient hx anesthesia problems: none Family hx anesthesia problems: none Results Review: All pre-operative results and documents have been reviewed as part of the pre-operative evaluation. PMFSH Past Medical History Medical History Hyperthyroidism Surgical History Surgical History History of Achilles tendon repair History of back surgery History of tubal ligation History of thyroid surgery Family History Family History Other Asthma Family history of anemia Family history of osteoporosis Family history of thyroid disease Hypertension Social History Social History Smoking packs per day: 0.5 Smoking cigarettes per day: 10.0 Years smoked: 28 Smoking pack-years: 14.00 Smoking status: Former smoker Tobacco type: cigarettes Smoking end date: 03/05/18 Alcohol intake: current Drinks per week: 4 Substance use: never Substance use type: does not use Living arrangements: with family Gender identity (if verbalized by the patient): Female Sexual Orientation (if Verbalized by the Patient): Straight or Heterosexual Spiritual care concerns: No Anes - Eval Final PreProcedure Day of Procedure 12/16/24 10:08 Patient weight: overweight Heart: regular rate and rhythm Lungs: normal air movement Airway: Mallampati scale class II Neurological: alert and oriented Last oral intake: >/= 8 hours ASA classification: II Emergent: no Anesthetic plan: proceed Anesthesia type and monitoring: general GIVS and standard monitoring Results Review: All pre-operative results and documents have been reviewed as part of the pre-operative evaluation. Informed Consent: The patient's anesthetic plan and its attendant risks and benefits were discussed with the patient/family/POA. Questions were solicited and answers provided to the satisfaction of the patient/family/POA.
--- NOTE | 2024-12-16 10:15 | PM.HPGS ---
History of Present Illness History of Present Illness Consent: Risks, benefits, and alternatives have been discussed and questions answered. Patient agrees to proceed with procedure. Chief complaint: Encounter for screening for malignant neoplasm of Narrative: Lisa Brown is a 49 year old female here for first screening colonoscopy Review of Systems Review of Systems: All systems reviewed & are unremarkable except as noted in HPI and below PMFSH Past Medical History Medical History (Updated 12/16/24 @ 10:16 by Daquan Pandya MD) Colon cancer screening Hyperthyroidism Surgical History Surgical History History of Achilles tendon repair History of back surgery History of tubal ligation History of thyroid surgery Family History Family History Other Asthma Family history of anemia Family history of osteoporosis Family history of thyroid disease Hypertension Social History Social History Smoking packs per day: 0.5 Smoking cigarettes per day: 10.0 Years smoked: 28 Smoking pack-years: 14.00 Smoking status: Former smoker Tobacco type: cigarettes Smoking end date: 03/05/18 Alcohol intake: current Drinks per week: 4 Substance use: never Substance use type: does not use Living arrangements: with family Gender identity (if verbalized by the patient): Female Sexual Orientation (if Verbalized by the Patient): Straight or Heterosexual Spiritual care concerns: No Meds Home Medications and Allergies Home Medications ?Medication ?Instructions ?Recorded ?Confirmed ?Type azelastine 137 mcg (0.1 %) nasal 1 spray intranasal DAILY 08/28/21 12/08/24 History spray Lactobacillus 1 cap PO DAILY 07/25/22 12/08/24 History acidophilus-Bifidobac.animalis 2.5 billion cell capsule (Daily Probiotic) calcium carbonate (Calcium 600) 600 mg PO DAILY 07/25/22 12/08/24 History cetirizine 10 mg tablet (Zyrtec) 10 mg PO DAILY 07/25/22 12/08/24 History ergocalciferol (vitamin D2) 1,250 1,250 mcg PO WEEKLY 07/25/22 12/08/24 History mcg (50,000 unit) capsule fluticasone propionate 50 1 spray intranasal DAILY 07/25/22 12/08/24 History mcg/actuation nasal spray,suspension levothyroxine 137 mcg tablet 137 mcg PO DAILY 07/25/22 12/08/24 History selenium 100 mcg tablet 200 mcg PO DAILY 07/25/22 12/08/24 History triamcinolone acetonide 0.1 % 1 applic topical BID PRN rash #15 09/15/24 12/08/24 Rx topical ointment grams progesterone micronized 100 mg See Rx Instructions .Route 09/30/24 12/08/24 Rx capsule .COMPLEX #90 caps estradiol 0.0375 mg/24 hr See Rx Instructions .Route 12/16/24 12/16/24 Rx semiweekly transdermal patch .COMPLEX #25 patches Allergies Allergy/AdvReac Type Severity Reaction Status Date / Time ceftriaxone Allergy Unknown Hives Verified 12/08/24 10:01 hydrocodone Allergy Unknown Itching Verified 12/08/24 10:01 ketorolac Allergy Unknown Hives Verified 12/08/24 10:01 metronidazole Allergy Unknown Hives Verified 12/08/24 10:01 skin cleanser Allergy Unknown Hives Verified 12/08/24 10:01 tramadol Allergy Unknown Itching Verified 12/08/24 10:01 amoxicillin (From Augmentin) Allergy Hives Verified 12/08/24 10:01 clavulanic acid (From Allergy Hives Verified 12/08/24 10:01 Augmentin) levofloxacin Allergy Dyspnea / Verified 12/08/24 10:01 SOB Penicillins Allergy Hives Verified 12/08/24 10:01 Vital Signs Vital Signs - 24 hr 12/16/24 09:31 Temperature 97.7 F Pulse Rate 58 L Respiratory Rate 18 Blood Pressure 112/80 Pulse Oximetry 100 Oxygen Delivery Room Air Exam Const: General: comfortable and no acute distress HENMT: Face/Nose/Sinus: Normal nares present Eyes: General: appearance normal, both eyes and all related structures Neck: Neck: no JVD Resp: Auscultation: clear to auscultation bilaterally Cardio: Rate: regular rate Rhythm: regular rhythm GI: Inspection: non-distended GI Palp: Yes Soft to palpation Skin: General skin exam: normal color Extrem: General: normal to inspection Psych: Mental Status: mental status grossly normal Assessment and Plan Assessment and plan (1) Colon cancer screening: Code(s): Z12.11 - Encounter for screening for malignant neoplasm of colon Status: Acute Assessment and Plan: colonoscopy
[2024-12-16 10:30] VITALS: BP 94/59; PULSE 66; RESP 15; O2SAT 99
[2024-12-16 10:40] VITALS: BP 110/76; PULSE 55; RESP 19; O2SAT 100
[2024-12-16 10:50] VITALS: BP 113/81; PULSE 64; RESP 20; O2SAT 100
== END 2024-12-16 11:08 | disposition home or self-care (01) ==
PROVIDERS: Referring Provider Obstetrics & Gynecology; Visit Provider Internal Medicine Gastroenterology
PROC: 0DJD8ZZ Inspection of Lower Intestinal Tract, Via Natural or Artificial Opening Endoscopic (ICD-10-PCS; CPT 45378; principal; 2024-12-16 11:00)
DX: Z12.11 Encounter for screening for malignant neoplasm of colon (principal); K64.8 Other hemorrhoids; E05.90 Thyrotoxicosis, unspecified without thyrotoxic crisis or storm; Z98.890 Other specified postprocedural states; Z98.1 Arthrodesis status; Z98.51 Tubal ligation status; Z87.891 Personal history of nicotine dependence
CPT/HCPCS: 45378; J2003; J2704; J7120

== ENCOUNTER 2025-01-22 14:19 | Emergency (ER) | payer OTHER, SELFPAY ==
--- NOTE | ~2025-01-22 | XR_ITS ---
EXAMINATION: XR pelvis 1-2V, 01/22/2025 15:36 WASHATERIA ATTENDANT HISTORY: right side pelvis pain from fall 1x month ago COMPARISON: No comparisons available. Findings: No acute fracture or malalignment. No significant degenerative changes. Soft tissues unremarkable. Impression: No acute fracture or malalignment. Reviewed, dictated and finalized at location P. ATERIA ATTENDANT Impression: No acute fracture or malalignment.
--- NOTE | ~2025-01-22 | XR_ITS ---
XR thoracic spine 3V Indication: fall off chair 1 month ago, pain back pain Comparison: None Findings: The vertebral heights are intact. No fracture or subluxation. The disc heights are intact. Soft tissues unremarkable Impression: No acute abnormality. Reviewed, dictated and finalized at location P. H ENGINEER Impression: No acute abnormality.
--- NOTE | ~2025-01-22 | XR_ITS ---
EXAM/PROCEDURE: XR lumbar spine 2-3V HISTORY: fall, pain for a month, LBP/tailbone pain COMPARISON: None available. TECHNIQUE: Lumbar spine FINDINGS: No fracture lucency or traumatic malalignment. Mild to moderately severe degenerative changes throughout the intervertebral discs and posterior elements. Fine bone and soft tissue detail obscured by moderate to large amount of overlying stool and bowel gas. IMPRESSION: No acute findings. Multilevel degenerative changes. For persisting or worsening low back pain refractory to conservative therapy, consider correlation with lumbar spine MRI. Reviewed, dictated and finalized at location A. TROENCEPHALOGRAM TECHNOLOGIST IMPRESSION: No acute findings. Multilevel degenerative changes. For persisting or worsening low back pain refractory to conservative therapy, consider correlation with [facility] spine MRI.
--- NOTE | ~2025-01-22 | XR_ITS ---
EXAMINATION: XR sacrum coccyx min 2V, 01/22/2025 15:36 MANAGER ASSISTED LIVING HISTORY: fall off chair 1 month ago, tailbone pain COMPARISON: No comparisons available. Findings: No acute fracture or malalignment. No significant degenerative changes. Soft tissues unremarkable. Impression: No acute fracture or malalignment. Reviewed, dictated and finalized at location P. GER ASSISTED LIVING Impression: No acute fracture or malalignment.
[2025-01-22 14:30] VITALS: BP 128/83; PULSE 72; RESP 18; TEMP 36.8; O2SAT 100
--- NOTE | 2025-01-22 15:26 | ED.BACK ---
HPI - Back Pain/Injury General Chief Complaint: Back Pain/Injury Stated Complaint: lower back pain Time Seen by Provider: 01/22/25 15:15 Source: patient and RN notes reviewed Mode of arrival: ambulatory Limitations: no limitations History of Present Illness HPI Narrative: 50-year-old female patient presents to [facility] complaining of back pain. Patient said approximately 1 and half to 2 months ago while at work she was going to sit down on a chair with wheels in the chair did not come with her and she fell landing on her bottom immature tipped over and hit her in the back of the head. Patient denies any loss of consciousness. Since then the patient has reported a chronic back pain Patient reports having neck problems in the past. Patient was sent to physical therapy for for workman's comp and also will was re-evaluated by her pain management doctor. Patient said few days ago at physical therapy they were working on her lower back when she developed worsening pain during if physical therapy exercise. Patient reports the pain is primarily to her right lower back/hip, and sacral region radiates up to her right mid back across to her left lower back. Patient denies any saddle anesthesia, loss of bowel or bladder function, leg weakness, fevers, or any other symptoms. Patient has a previous lumbar fracture head she had surgery on before. Patient has been taking naproxen with some relief. Patient denies any other significant past medical problems. Related Data Home Medications ?Medication ?Instructions ?Recorded ?Confirmed ?Last Taken ?Type Lactobacillus 1 cap PO DAILY 07/25/22 12/08/24 Unknown History acidophilus-Bifidobac.animalis 2.5 billion cell capsule (Daily Probiotic) calcium carbonate (Calcium 600) 600 mg PO DAILY 07/25/22 12/08/24 Unknown History cetirizine 10 mg tablet (Zyrtec) 10 mg PO DAILY 07/25/22 12/08/24 Unknown History fluticasone propionate 50 1 spray intranasal DAILY 07/25/22 12/08/24 Unknown History mcg/actuation nasal spray,suspension cholecalciferol (vitamin D3) 1,250 01/22/25 Unknown History mcg (50,000 unit) capsule levothyroxine 112 mcg tablet mcg 01/22/25 Unknown History potassium chloride 20 mEq meq PO 01/22/25 Unknown History tablet,extended release Allergies Allergy/AdvReac Type Severity Reaction Status Date / Time ceftriaxone Allergy Unknown Hives Verified 01/22/25 14:46 hydrocodone Allergy Unknown Itching Verified 01/22/25 14:46 ketorolac Allergy Unknown Hives Verified 01/22/25 14:46 metronidazole Allergy Unknown Hives Verified 01/22/25 14:46 skin cleanser Allergy Unknown Hives Verified 01/22/25 14:46 tramadol Allergy Unknown Itching Verified 01/22/25 14:46 amoxicillin (From Augmentin) Allergy Hives Verified 01/22/25 14:46 clavulanic acid (From Allergy Hives Verified 01/22/25 14:46 Augmentin) levofloxacin Allergy Dyspnea / Verified 01/22/25 14:46 SOB Penicillins Allergy Hives Verified 01/22/25 14:46 Review of Systems Review of Systems: CONSTITUTIONAL: Denies fever, chills, or sweats. EYES: Denies visual changes, redness, or discharge. ENT: Denies rhinorrhea, congestion, sore throat, or otalgia. CARDIOVASCULAR: Denies chest pain, palpitations, or edema. RESPIRATORY: Denies cough or dyspnea. GASTROINTESTINAL: Denies abdominal pain, nausea, vomiting, or diarrhea. GENITOURINARY: Denies dysuria or hematuria. SKIN: Denies rash or itching. MUSCULOSKELETAL: Positive for back pain., joint pain, or myalgia. NEUROLOGIC: Denies headache, saddle anesthesia, loss of consciousness, loss of bowel or bladder function, numbness, or weakness. PSYCHIATRIC: Denies anxiety or depression. All other systems reviewed are negative, except as documented in HPI. [facility] Past Medical History Medical History Colon cancer screening Hyperthyroidism Surgical History Surgical History History of Achilles tendon repair History of back surgery History of tubal ligation History of thyroid surgery Family History Family History Other Asthma Family history of anemia Family history of osteoporosis Family history of thyroid disease Hypertension Social History Social History Smoking packs per day: 0.5 Smoking cigarettes per day: 10.0 Years smoked: 28 Smoking pack-years: 14.00 Smoking status: Former smoker Tobacco type: cigarettes Smoking end date: 03/05/18 Alcohol intake: current Drinks per week: 4 Substance use: never Substance use type: does not use Living arrangements: with family Gender identity (if verbalized by the patient): Female Sexual Orientation (if Verbalized by the Patient): Straight or Heterosexual Spiritual care concerns: No Comments At the time of my signature, I reviewed and agree with the nursing past medical, surgical, social, and family history. There is no relevant family history pertinent to the patient complaint. Exam Narrative: GENERAL: This is a well-nourished, well-developed adult, in no apparent distress. They are non ill-appearing, nontoxic appearing. HEAD: normocephalic, atraumatic. EYES: Sclera clear/white. Conjunctiva normal. Vision is grossly intact. Extraocular movements intact EARS: External ears normal, Hearing grossly intact. NOSE: External nose normal THROAT: Mucous membranes moist, NECK: Neck supple, non-tender without lymphadenopathy, masses or thyromegaly. CARDIOVASCULAR: Regular rate and rhythm RESPIRATORY: Respiratory rate normal, respiratory effort nonlabored, no respiratory distress SKIN: warm, Dry, intact with no suspicious lesions or rash, good texture and turgor. NEURO: awake, alert, and oriented to person, place and time. There were no obvious focal neurologic abnormalities. EXTREMITIES: No joint tenderness, effusion, or edema noted. BACK: Tenderness to palpation to the mid lumbar/sacral region. No crepitus or step-offs. No cervical point tenderness, no thoracic point tenderness. No CVA tenderness. Course Course Emergency Course: Portions of this record may have been created with voice recognition software Level of Care: Express Care Visit Vital Signs Vital signs: Vital Signs Temperature 98.2 F 01/22/25 14:30 Pulse Rate 72 01/22/25 14:30 Respiratory Rate 18 01/22/25 14:30 Blood Pressure 128/83 01/22/25 14:30 Pulse Oximetry 100 01/22/25 14:30 Oxygen Delivery Room Air 01/22/25 14:30 Temperature 98.2 F 01/22/25 14:30 Pulse Rate 72 01/22/25 14:30 Respiratory Rate 18 01/22/25 14:30 Blood Pressure 128/83 01/22/25 14:30 Pulse Oximetry 100 01/22/25 14:30 Oxygen Delivery Room Air 01/22/25 14:30 Reviewed MDM - Back Pain/Injury MDM Narrative Medical decision making narrative: Will perform x-ray imaging of the patient's thoracic, lumbar, sacral/coccyx, and pelvis. Informed patient x-ray imaging may be limited on diagnosis of her condition however may be able to rule out any bony conditions, arthritic changes. Patient verbalized understanding. Advised patient she will need to follow-up closely with her doctor or specialist for further evaluation manage her symptoms her symptoms persisting. Patient has no caudal equia symptoms. X-ray results reveal no evidence of fracture or acute findings. It does show from mild to significant degenerative changes to her lumbar spine., patient does previous lumbar surgery likely has degenerative disc disease. Offered patient a short course of [place] were a muscle relaxer to with her symptoms, she declined would like to continue doing the naproxen and alternate with Tylenol. Discussed supportive care with patient. Advised close follow-up PCP ear pain specialist for further evaluation management her symptoms, she may need MRI given persistent symptoms. Discussed physical exam findings. Advised supportive measures and signs/symptoms to go to the ER. Pt is appropriate for outpt treatment and f/u. Differential Diagnosis Differential diagnosis: Likely lumbar radiculopathy, sciatica, strain of lumbar region, thoracic back pain, discitis and other (Bulging disc, herniated disc, fracture,) Imaging Data Radiologist's impression: ITS Impressions Lumbar Spine X-Ray 01/22/25 15:54 IMPRESSION: No acute findings. Multilevel degenerative changes. For persisting or worsening low back pain refractory to conservative therapy, consider correlation with lumbar spine MRI. Sacrum and Coccyx X-Ray 01/22/25 15:54 Impression: No acute fracture or malalignment. Pelvis X-Ray 01/22/25 15:55 Impression: No acute fracture or malalignment. Thoracic Spine X-Ray 01/22/25 15:55 Impression: No acute abnormality. Critical Care Time Critical Care Time Critical Care Time: No Discharge Plan Discharge Clinical Impression: Lower back pain Qualifiers: Chronicity: acute Back pain laterality: right Sciatica presence: without sciatica Qualified Code(s): M54.50 - Low back pain, unspecified Patient Disposition: Home Condition: Stable Instructions: Back Pain (ED), Lower Back Exercises (ED) Additional Instructions: The x-ray of your thoracic, lumbar, sacrum, coccyx, and pelvis are negative for any fractures or acute findings. It is noted that there is degenerative changes to your lumbar spine. Use the lidocaine patches as needed for pain. Follow instructions on the packaging, they may step down from the 12 hours. Continue with naproxen and alternate with Tylenol as needed for pain. Follow instructions on the bottle. Please follow-up with your primary care provider or pain specialist in 3-5 days for further evaluation. You May need a MRI of your back. Rest. Avoid pushing, pulling, lifting --running or excessive walking-- or anything that worsens the symptoms You may try stretching your lower back or doing spinal decompression to help with symptoms. Go to the emergency department if you develop any numbness or tingling to your groin, weakness in your legs, or any loss of bowel or bladder function, severe uncontrollable pain, or any serious concerns. Patient Language: Togolese Prescriptions: No Action levothyroxine 112 mcg tablet cholecalciferol (vitamin D3) 1,250 mcg (50,000 unit) capsule potassium chloride 20 mEq tablet extended release PO cetirizine [Zyrtec] 10 mg Tablet 10 mg PO DAILY calcium carbonate [Calcium 600] 600 mg calcium (1,500 mg) Tablet 600 mg PO DAILY fluticasone propionate 50 mcg/actuation [place],Suspension 1 spray INTRANASAL DAILY Rx Instructions: administer into each nostril Daily Probiotic 2.5 billion cell Capsule 1 cap PO DAILY estradiol 0.0375 mg/24 hr patch semiweekly See Rx Instructions .ROUTE .COMPLEX Qty: 25 3RF Dose Instruction: APPLY 1 PATCH TOPICALLY TO THE SKIN 2 TIMES A WEEK Rx Instructions: APPLY 1 PATCH TOPICALLY TO THE SKIN 2 TIMES A WEEK progesterone micronized 100 mg capsule 100 mg PO QHS Qty: 90 1RF Follow-up/Referrals: Sue,Iraj Ruiz MD [Primary Care Provider, Unknown] Time of Disposition: 16:22
== END 2025-01-22 16:25 | disposition home or self-care (01) ==
PROVIDERS: PCP Internal Medicine Geriatric Medicine
DX: M54.50 Low back pain, unspecified (principal); Z87.891 Personal history of nicotine dependence; E05.90 Thyrotoxicosis, unspecified without thyrotoxic crisis or storm
CPT/HCPCS: 72072; 72100; 72170; 72220; 99214; G0463

== ENCOUNTER 2025-02-27 16:57 | Emergency (ER) | payer OTHER, SELFPAY ==
--- OUTSIDE RECORDS SUMMARY | 2025-02-27 17:00 | XMS_ITS | Clinical Summary ---
Author Organization [facility] Address [address] [place] [address] Care Team Providers Care Research Development Director Name Role Phone Unavailable Primary Care Provider Unavailabl e Source Comments [facility] Applico,non-owned Affiliates and Associated Physician Practices is amultiple site organization consisting of ambulatory clinics and hospital sitesin [place], [place], [place] and [place]. This disclosure is being madepursuant to the Care Everywhere program and may not contain all information available regarding this patient. Last updated 17.[facility] Applico Medications * Be aware that medications may [...] mouth DAILY. 07/26/2016 Active Cholecalciferol (VITAMIN D3) 18267 UNITS Take 1 capsule by mouth DAILY. [...] on file Legal Sex Female 5:27 PM [employer] Gender Identity Not on file Sexual Orientation [...] of 3 - 19+ 3-dose series) 01/03/1995 PAP SMEAR 01/03/1997 DEPRESSION SCREENING 03/05/2024 COVID-19 VACCINE (1 - 2024-2 6 season) 2024 INFLUENZA VACCINE (#1) 2024 ZOSTER [...] patient's age to complete [place] [address] [facility]
--- OUTSIDE RECORDS SUMMARY | 2025-02-27 17:00 | XMS_ITS | Encounter Summary ---
Author Organization [facility] Address [address] [place] [address] Care Team Providers Care Heat Transfer Technician Name Role Phone Unavailable Primary Care Provider Unavailabl e Encounter Details Date Type Department Care Team (Late st Contact Info) Description 11/29/2018 Lab Requisition [facility] [address] [place] [address] [place] [address] [place] [address] Social History Tobacco Use Types Packs/Day Years Used Date Smoking Tobacco: Every Day Smokeless Tobacco: Never Alcohol Use Standard Drinks/Week Comments No 0 (1 standard drink = 0.6 oz pur e alcohol) Comments Unknown Sex and Gender Information Value Date Recorded Sex Assigned at Not on file Legal Sex Female 5:27 PM IN HOME NANNY Gender Identity Not on file Sexual Orientation [...] <1.20 mIU/mL 11/30/19 19 6:11 PM CDT [facility] Blood BLOOD SPECIMEN / Unknown Venipuncture / Unknown 11/29/2018 3:42 PM CDT 11/29/2018 5:44 PM CDT Narrative [facility] - 11/29/2018 6:11 PM CDT hCG [...] LAB - CHEMISTRY ORDERABLES Fin al Result [facility] [address] [place] [address] documented in this encounter Visit Diagnoses Not on filedocumented in this encounter
--- OUTSIDE RECORDS SUMMARY | 2025-02-27 17:00 | XMS_ITS | Clinical Summary ---
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 Active calcium mot-[id number] op-rashel 250 mg-40 mg- 125 unit-3.75mg tablet Take by mouth daily Active levothyroxine (SYNTHROID) 112 mcg tablet Take 1 tablet (112 mcg total) by mouth product 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 intern before breakfast 90 tablet 3 5 05/10/19 26 Active estradioL (VIVELLE-DOT) 0.0375 mg/24 hr APPLY 1 PATCH TOPICALLY TO THE SKIN 2 TIMES A WEEK 5 Active progesterone (PROMETRIUM) 100 mg capsule Take 1 capsule (100 mg total) by mouth daily 5 Active semaglutide 1.7 mg/0.22 mL syringe 5 Active potassium chloride ER (KLOR-CON) 20 mEq CR tablet Take 1 tablet (20 mEq total) by mouth daily 30 tablet 5 Active tiZANidine (ZANAFLEX) 4 mg tablet Take 1 tablet (4 mg total) by mouth nightly as needed for muscle spasms 7 tablet 5 Active Active Problems Problem Noted Date Diagnosed Date Myalgia 01/13/2025 Pain in both wrists 01/13/2025 Bilateral low back pain without sciatica 025 Cervical radiculopathy 03/24/2024 Cervical spinal stenosis 03/24/2024 Subacromial bursitis of left shoulder joint 03/06 Hyperthyroidism 05/09/2022 Subclinical hyperthyroidism 12/06/2021 Overweight 12/06/2021 Amenorrhea 03/29/2021 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 Elevated prolactin level 12/24/2019 Resolved Problems Problem Noted Date Diagnosed Date Resolved Date Thyromegaly 12/24/2019 05/24/2021 Postoperative hypothyroidism 12/24/2019 12/06/2021 Encounters Date Type Department Care Team Description 02/23/2025 6:34 AM PRODUCTION METAL SPRAYER - 02/23/2025 11:59 PM PRODUCTION METAL SPRAYER Hospital Encounter [facility] [address] [place] [id number] Thoracic radiculopathy Discharge Disposition: Discharge to home or self care 02/23/2025 6:34 AM PRODUCTION METAL SPRAYER - 02/23/2025 11:59 PM PRODUCTION METAL SPRAYER Hospital Encounter [facility] [address] [place] [address] Cervical spinal stenosis Discharge Disposition: Discharge to home or self care 02/23/2025 6:34 AM PRODUCTION METAL SPRAYER - 02/23/2025 11:59 PM PRODUCTION METAL SPRAYER Hospital Encounter [facility] [address] [place] [address] Lumbar radiculopathy Discharge Disposition: Discharge to home or self care 02/09/2025 [facility] [address] [place] [id number] 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, 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 01/26/2025 7:59 AM PRODUCTION METAL SPRAYER - 01/26/2025 11:59 PM PRODUCTION METAL SPRAYER Hospital Encounter [facility] [address] [place] [address] [phone] [place] [phone] Genoveva Barragan NP Lumbar radiculopathy (Primary Dx); Cervical radiculopathy; Cervical spinal stenosis; Pain in both wrists; Chronic bilateral low back pain without sciatica; Sacroiliitis; Thoracic radiculopathy; History of lumbar surgery; Myalgia Discharge Disposition: Discharge to home or self care 01/13/2025 6:57 AM PRODUCTION METAL SPRAYER - 01/13/2025 11:59 PM PRODUCTION METAL SPRAYER Hospital Encounter [facility] [address] [place] [phone] Genoveva Barragan NP Myalgia (Primary Dx); Cervical radiculopathy; Cervical spinal stenosis; Acute bilateral low back pain without sciatica; Pain in both wrists Discharge Disposition: Discharge to home or self care 12/26/2024 11:50 AM CDT - 12/26/2024 4:39 PM CDT Emergency [facility] Emergency Department [address] [place] [phone] Paresthesia; Spasm; Chest tightness; SOB (shortness of breath); Hypokalemia Discharge Disposition: Discharge to home or self care from Last 3 Months Surgical History Surgery Date Site/Laterality Comments ACHILLES TENDON REPAIR 03/05/2012 - 03/04/2013 Left BACK SURGERY 03/05/2001 - 03/04/2002 broken back TUBAL LIGATION 03/05/2004 - 03/04/2005 THYROID SURGERY 03/05/2020 - 03/04/2021 Medical History Medical History Date Comments Hx Other Medical 2002 back surgery History of multiple allergies Al lergies Fatigue Diarrhea Constipation SOB (shortness of breath) on exertion Eye problem sensitive to lig ht Fibroids Pituitary cyst Graves disease Raf's thyroiditis Covid-19 01/30/2020 Awareness under anesthesia 2005 Woke up during tubal ligation ([facility]) Awareness [...] Never 05/09/2024 Personal Safety Answer Date Recorded Have you ever been in or are you currently in a harmful physical or emotional relationship or is someone making you feel afraid or unsafe? Denies 12/26/2024 Comments No Sex and Gender Information Value Date Recorded Sex Assigned at Not on file Legal Sex Female 5:44 AM PRODUCTION METAL SPRAYER Gender Identity Female 03/24/2020 10:33 AM PRODUCTION METAL SPRAYER Sexual Orientation Straight 03/24/2020 10 :33 AM PRODUCTION METAL SPRAYER Last Filed Vital Signs Vital Sign Reading Time Taken Comments Blood Pressure 122/80 01/26/2025 8:05 AM PRODUCTION METAL SPRAYER Pulse 76 01/26/2025 8:05 AM PRODUCTION METAL SPRAYER Temperature 36.8 C (98.2 F) 08/13/2024 2:43 PM CDT Respiratory Rate 16 01/26/2025 8:05 AM PRODUCTION METAL SPRAYER Oxygen Saturation 99% 01/26/2025 8:05 AM PRODUCTION METAL SPRAYER Inhaled Oxygen Concentration - - Weight 74.8 kg (165 lb) 12/26/2024 12:15 PM CDT Height 172.7 cm (5' 8) 12/26/2024 12:15 PM CDT Body Mass Index 25.09 12/26/2024 12:15 PM CDT Plan of Treatment Health Maintenance Due Date Last Done Comments Cervical Cancer Screening 1976 Colon Cancer Screening-Colonoscopy 1976 Depression Screening 1976 Hepatitis C Screening 1976 DTaP/Tdap/Td Vaccine (1 - Tdap) 01/03/1987 Hepatitis B Screening 01/03/1994 Regular Well Visit/Exam 18-64 01/03/1994 Breast Cancer Screening-Mammogram 04/14/2022 04/14/2021 Covid-19 Vaccine (4 - 2024-2 6 season) 2024 02/27/2021, 03/15/2020, 02/23/2020 Influenza Vaccine (#1) 2024 , 02/27/2021 Pneumococcal vaccine <65 Aged Out No longer eligible based on patient's age to complete this topic Procedures Procedure Name Priority Date/Time Associated Diagnosis Comments MRI LUMBAR SPINE W WO CONTRAST Schedule Routine, Read Routine (OP Routine) 02/23/2025 8:08 AM PRODUCTION METAL SPRAYER Lumbar radiculopathy MRI THORACIC SPINE WO CONTRAST Schedule Routine, Read Routine (OP Routine) 02/23/2025 8:07 AM PRODUCTION METAL SPRAYER Thoracic radiculopathy MRI CERVICAL SPINE WO CONTRAST Schedule Routine, Read Routine (OP Routine) 02/23/2025 8:07 AM PRODUCTION METAL SPRAYER Cervical spinal stenosis MAGNESIUM Add-On 12/26/2024 2:29 PM CDT TROPONIN T HIGH-SENSITIVITY 2-HOUR Timed 12/26/2024 2:29 PM CDT URINALYSIS AND REFLEX TO MICROSCOPIC AND CULTURE STAT 12/26/2024 1:02 PM CDT LIPASE STAT 12/26/2024 12:48 PM CDT D-DIMER, QUANTITATIVE STAT 12/26/2024 12:48 PM CDT EGFR STAT 12/26/2024 12:16 PM CDT DIFFERENTIAL AUTO STAT 12/26/2024 12:16 PM CDT THYROID FUNCTION CASCADE Routine 12/26/2024 12:16 PM CDT TROPONIN T HIGH-SENSITIVITY SERIES (BASELINE, 2HR, 4HR, 6HR) STAT 12/26/2024 12:16 PM CDT COMPREHENSIVE METABOLIC PANEL STAT 12/26/2024 12:16 PM CDT CBC WITH AUTO DIFFERENTIAL STAT 12/26/2024 12:16 PM CDT XR CHEST 1 VIEW ED 12/26/2024 12:13 PM CDT ECG 12-LEAD STAT 12/26/2024 12:04 PM CDT SCREENING MAMMOGRAM Schedule Routine, Read Routine (OP Routine) 04/14/2021 from Last 3 Months or Most Recently Relevant to Health Maintenance Results * MRI Lumbar Spine W WO Contrast (02/23/2025 8:08 AM PRODUCTION METAL SPRAYER) Anatomical Region Laterality Modality Spine N/A Magnetic Resonan ce 02/23/2025 10:1 6 AM PRODUCTION METAL SPRAYER Impressions 02/23/2025 10:16 AM PRODUCTION METAL SPRAYER 1. Spondylosis and degenerative disc disease of the cervical spine as detailed level by level above. 2. Spondylosis and degenerative disc disease of the thoracic spine as detailed level by level above. 3. Spondylosis and degenerative disc disease of the lumbar spine as detailed level by level above. Electronically signed by: Luis Francois M.D. Narrative 02/23/2025 10:16 AM PRODUCTION METAL SPRAYER EXAMINATION: MRI CERVICAL SPINE WO CONTRAST, MRI LUMBAR SPINE W WO CONTRAST, MRI THORACIC SPINE WO CONTRAST REASON FOR STUDY: Chronic bilateral, left greater than right, neck pain radiating down unspecified radicular levels of the left shoulder. TECHNIQUE: Sagittal and axial imaging of the cervical, thoracic, and lumbar spine includes T1, T2, STIR and gradient echo sequences. Multiplanar T1 postcontrast sequences acquired of the lumbar spine. Images saved to PACS. CONTRAST: 15 mL Gadoterate Meglumine was administered via peripheral IV site. COMPARISON: MRI cervical spine without contrast 02/06/2024 and 04/04/2022; relevant portions of CT soft tissue neck without contrast 06/15/2020 cervical spine and left shoulder radiographs 01/01/2024; relevant portions of CT abdomen and pelvis with contrast 04/06/2023 oh (images without report); FINDINGS: MRI CERVICAL SPINE: ALIGNMENT: Normal. VERTEBRAE: No MR evidence of acute-subacute fracture. Vertebral body heights maintained. Spondylosis. Marrow signal within normal limits. DISCS: Multilevel variable intervertebral disc desiccation and loss of intervertebral disc height of the visualized cervicothoracic spine. BASE OF BRAIN: No acute abnormality. HARDWARE: None in the cervical spine. CORD: Normal in size and signal intensity. INDIVIDUAL DISC LEVELS: C1-2: No spinal canal stenosis. C2-3: Posterior disc osteophyte complex eccentric to the left indenting the left eccentric ventral thecal sac. Bilateral facet arthropathy. Bilateral uncovertebral joint disease. No spinal canal stenosis. No neuroforaminal stenosis. C3-4: No diffuse disc bulge or focal herniation. Bilateral hypertrophic facet arthropathy. Bilateral uncovertebral joint disease. No spinal canal stenosis. No significant neuroforaminal stenosis. C4-5: Mild posterior disc osteophyte complex with tiny central disc protrusion indenting the ventral thecal sac. Left greater than right hypertrophic facet arthropathy. Bilateral uncovertebral joint disease. No spinal canal stenosis. Bilateral neuroforaminal stenosis. C5-6: Slight posterior disc osteophyte complex. Bilateral hypertrophic facet arthropathy. Bilateral uncovertebral joint disease. No spinal canal stenosis. Slight bilateral neuroforaminal stenosis. C6-7: Posterior disc osteophyte complex indenting the ventral thecal sac. Bilateral hypertrophic facet arthropathy. Bilateral uncovertebral joint disease. No spinal canal stenosis. Bilateral neuroforaminal stenosis. C7-T1: No diffuse disc bulge or focal herniation. No spinal canal stenosis. No neuroforaminal stenosis. SOFT TISSUES: No acute abnormality. OTHER: None. MRI THORACIC SPINE: ALIGNMENT: Normal. VERTEBRAE: No MR evidence of acute-subacute fracture. Vertebral body heights maintained. Spondylosis. Marrow signal within normal limits. DISCS: Multilevel variable intervertebral disc desiccation and loss of intervertebral disc height of the visualized cervicothoracic spine. HARDWARE: None in the thoracic spine. CORD: Normal in size and signal intensity. INDIVIDUAL DISC LEVELS: T10-11: Annular disc bulge indenting the ventral thecal sac. Bilateral facet arthropathy. No spinal canal stenosis. No neuroforaminal stenosis. T11-12: Annular disc bulge indenting the ventral thecal sac. Bilateral facet arthropathy. No spinal canal stenosis. No neuroforaminal stenosis. SOFT TISSUES: No acute abnormality. OTHER: Scattered perineural sleeve cysts. MRI LUMBAR SPINE: SEGMENTATION: No lumbosacral transitional anatomy. The lowest fully formed intervertebral disc level is labeled L5-S1. ALIGNMENT: Minimal retrolisthesis L5 on S1. VERTEBRAE: No MR evidence of acute-subacute fracture. Vertebral body heights unchanged. Spondylosis. Scattered hemangiomas and patchy fatty marrow placement about the osseous architecture. DISCS: Multilevel variable intervertebral disc desiccation and loss of intervertebral disc height of the visualized cervicothoracic spine. HARDWARE: None in the lumbar spine. CORD: Normal in size and signal intensity with conus medullaris termination at L1-2. No abnormal enhancement. INDIVIDUAL DISC LEVELS: T12-L1: No diffuse disc bulge or focal herniation. No spinal canal stenosis. No neuroforaminal stenosis. L1-2: No diffuse disc bulge or focal herniation. No spinal canal stenosis. No neuroforaminal stenosis. L2-3: No diffuse disc bulge or focal herniation. No spinal canal stenosis. No neuroforaminal stenosis. L3-4: No diffuse disc bulge or focal herniation. Bilateral hypertrophic facet arthropathy. No spinal canal stenosis. No neuroforaminal stenosis. L4-5: No significant diffuse disc bulge or focal herniation. Bilateral hypertrophic facet arthropathy. No spinal canal stenosis. No significant neuroforaminal stenosis. L5-S1: Slightly overhanging posterior cortical margin with mild posterior osteophytosis and annular disc bulge with right eccentric central-right subarticular disc protrusion. Bilateral hypertrophic facet arthropathy. Slight compromise of the bilateral lateral recesses, noting variable slight disc abutment of the descending bilateral S1 nerve roots. No spinal canal stenosis. Mild left neuroforaminal stenosis, noting slight disc contact with the exiting left L5 nerve root. SACRUM: Visualized portions of the sacrum unremarkable. SOFT TISSUES: Within the limitations of motion artifact, no overt evidence of acute abnormality. OTHER: None. Procedure Note Luis Francois MD - 02/23/2025 EXAMINATION: MRI CERVICAL SPINE WO CONTRAST, MRI LUMBAR SPINE W WO CONTRAST, MRI THORACIC SPINE WO CONTRAST REASON FOR STUDY: Chronic bilateral, left greater than right, neck pain radiating down unspecified radicular levels of the left shoulder. TECHNIQUE: Sagittal and axial imaging of the cervical, thoracic, and lumbar spine includes T1, T2, STIR and gradient echo sequences. Multiplanar T1 postcontrast sequences acquired of the lumbar spine. Images saved to PACS. CONTRAST: 15 mL Gadoterate Meglumine was administered via peripheral IV site. COMPARISON: MRI cervical spine without contrast 02/06/2024 and 04/04/2022; relevant portions of CT soft tissue neck without contrast 06/15/2020 cervical spine and left shoulder radiographs 01/01/2024; relevant portions of CT abdomen and pelvis with contrast 04/06/2023 oh (images without report); FINDINGS: MRI CERVICAL SPINE: ALIGNMENT: Normal. VERTEBRAE: No MR evidence of acute-subacute fracture. Vertebral body heights maintained. Spondylosis. Marrow signal within normal limits. DISCS: Multilevel variable intervertebral disc desiccation and loss of intervertebral disc height of the visualized cervicothoracic spine. BASE OF BRAIN: No acute abnormality. HARDWARE: None in the cervical spine. CORD: Normal in size and signal intensity. INDIVIDUAL DISC LEVELS: C1-2: No spinal canal stenosis. C2-3: Posterior disc osteophyte complex eccentric to the left indenting the left eccentric ventral thecal sac. Bilateral facet arthropathy. Bilateral uncovertebral joint disease. No spinal canal stenosis. No neuroforaminal stenosis. C3-4: No diffuse disc bulge or focal herniation. Bilateral hypertrophic facet arthropathy. Bilateral uncovertebral joint disease. No spinal canal stenosis. No significant neuroforaminal stenosis. C4-5: Mild posterior disc osteophyte complex with tiny central disc protrusion indenting the ventral thecal sac. Left greater than right hypertrophic facet arthropathy. Bilateral uncovertebral joint disease. No spinal canal stenosis. Bilateral neuroforaminal stenosis. C5-6: Slight posterior disc osteophyte complex. Bilateral hypertrophic facet arthropathy. Bilateral uncovertebral joint disease. No spinal canal stenosis. Slight bilateral neuroforaminal stenosis. C6-7: Posterior disc osteophyte complex indenting the ventral thecal sac. Bilateral hypertrophic facet arthropathy. Bilateral uncovertebral joint disease. No spinal canal stenosis. Bilateral neuroforaminal stenosis. C7-T1: No diffuse disc bulge or focal herniation. No spinal canal stenosis. No neuroforaminal stenosis. SOFT TISSUES: No acute abnormality. OTHER: None. MRI THORACIC SPINE: ALIGNMENT: Normal. VERTEBRAE: No MR evidence of acute-subacute fracture. Vertebral body heights maintained. Spondylosis. Marrow signal within normal limits. DISCS: Multilevel variable intervertebral disc desiccation and loss of intervertebral disc height of the visualized cervicothoracic spine. HARDWARE: None in the thoracic spine. CORD: Normal in size and signal intensity. INDIVIDUAL DISC LEVELS: T10-11: Annular disc bulge indenting the ventral thecal sac. Bilateral facet arthropathy. No spinal canal stenosis. No neuroforaminal stenosis. T11-12: Annular disc bulge indenting the ventral thecal sac. Bilateral facet arthropathy. No spinal canal stenosis. No neuroforaminal stenosis. SOFT TISSUES: No acute abnormality. OTHER: Scattered perineural sleeve cysts. MRI LUMBAR SPINE: SEGMENTATION: No lumbosacral transitional anatomy. The lowest fully formed intervertebral disc level is labeled L5-S1. ALIGNMENT: Minimal retrolisthesis L5 on S1. VERTEBRAE: No MR evidence of acute-subacute fracture. Vertebral body heights unchanged. Spondylosis. Scattered hemangiomas and patchy fatty marrow placement about the osseous architecture. DISCS: Multilevel variable intervertebral disc desiccation and loss of intervertebral disc height of the visualized cervicothoracic spine. HARDWARE: None in the lumbar spine. CORD: Normal in size and signal intensity with conus medullaris termination at L1-2. No abnormal enhancement. INDIVIDUAL DISC LEVELS: T12-L1: No diffuse disc bulge or focal herniation. No spinal canal stenosis. No neuroforaminal stenosis. L1-2: No diffuse disc bulge or focal herniation. No spinal canal stenosis. No neuroforaminal stenosis. L2-3: No diffuse disc bulge or focal herniation. No spinal canal stenosis. No neuroforaminal stenosis. L3-4: No diffuse disc bulge or focal herniation. Bilateral hypertrophic facet arthropathy. No spinal canal stenosis. No neuroforaminal stenosis. L4-5: No significant diffuse disc bulge or focal herniation. Bilateral hypertrophic facet arthropathy. No spinal canal stenosis. No significant neuroforaminal stenosis. L5-S1: Slightly overhanging posterior cortical margin with mild posterior osteophytosis and annular disc bulge with right eccentric central-right subarticular disc protrusion. Bilateral hypertrophic facet arthropathy. Slight compromise of the bilateral lateral recesses, noting variable slight disc abutment of the descending bilateral S1 nerve roots. No spinal canal stenosis. Mild left neuroforaminal stenosis, noting slight disc contact with the exiting left L5 nerve root. SACRUM: Visualized portions of the sacrum unremarkable. SOFT TISSUES: Within the limitations of motion artifact, no overt evidence of acute abnormality. OTHER: None. IMPRESSION: 1. Spondylosis and degenerative disc disease of the cervical spine as detailed level by level above. 2. Spondylosis and degenerative disc disease of the thoracic spine as detailed level by level above. 3. Spondylosis and degenerative disc disease of the lumbar spine as detailed level by level above. Electronically signed by: Luis Francois M.D. Genoveva Barragan NP IMG MRI PROCEDURES Samia l Result * MRI Thoracic Spine WO Contrast (02/23/2025 8:07 AM PRODUCTION METAL SPRAYER) Anatomical Region Laterality Modality Spine N/A Magnetic Resonan ce 02/23/2025 10:1 6 AM PRODUCTION METAL SPRAYER Impressions 02/23/2025 10:16 AM PRODUCTION METAL SPRAYER 1. Spondylosis and degenerative disc disease of the cervical spine as detailed level by level above. 2. Spondylosis and degenerative disc disease of the thoracic spine as detailed level by level above. 3. Spondylosis and degenerative disc disease of the lumbar spine as detailed level by level above. Electronically signed by: Luis Francois M.D. Narrative 02/23/2025 10:16 AM PRODUCTION METAL SPRAYER EXAMINATION: MRI CERVICAL SPINE WO CONTRAST, MRI LUMBAR SPINE W WO CONTRAST, MRI THORACIC SPINE WO CONTRAST REASON FOR STUDY: Chronic bilateral, left greater than right, neck pain radiating down unspecified radicular levels of the left shoulder. TECHNIQUE: Sagittal and axial imaging of the cervical, thoracic, and lumbar spine includes T1, T2, STIR and gradient echo sequences. Multiplanar T1 postcontrast sequences acquired of the lumbar spine. Images saved to PACS. CONTRAST: 15 mL Gadoterate Meglumine was administered via peripheral IV site. COMPARISON: MRI cervical spine without contrast 02/06/2024 and 04/04/2022; relevant portions of CT soft tissue neck without contrast 06/15/2020 cervical spine and left shoulder radiographs 01/01/2024; relevant portions of CT abdomen and pelvis with contrast 04/06/2023 oh (images without report); FINDINGS: MRI CERVICAL SPINE: ALIGNMENT: Normal. VERTEBRAE: No MR evidence of acute-subacute fracture. Vertebral body heights maintained. Spondylosis. Marrow signal within normal limits. DISCS: Multilevel variable intervertebral disc desiccation and loss of intervertebral disc height of the visualized cervicothoracic spine. BASE OF BRAIN: No acute abnormality. HARDWARE: None in the cervical spine. CORD: Normal in size and signal intensity. INDIVIDUAL DISC LEVELS: C1-2: No spinal canal stenosis. C2-3: Posterior disc osteophyte complex eccentric to the left indenting the left eccentric ventral thecal sac. Bilateral facet arthropathy. Bilateral uncovertebral joint disease. No spinal canal stenosis. No neuroforaminal stenosis. C3-4: No diffuse disc bulge or focal herniation. Bilateral hypertrophic facet arthropathy. Bilateral uncovertebral joint disease. No spinal canal stenosis. No significant neuroforaminal stenosis. C4-5: Mild posterior disc osteophyte complex with tiny central disc protrusion indenting the ventral thecal sac. Left greater than right hypertrophic facet arthropathy. Bilateral uncovertebral joint disease. No spinal canal stenosis. Bilateral neuroforaminal stenosis. C5-6: Slight posterior disc osteophyte complex. Bilateral hypertrophic facet arthropathy. Bilateral uncovertebral joint disease. No spinal canal stenosis. Slight bilateral neuroforaminal stenosis. C6-7: Posterior disc osteophyte complex indenting the ventral thecal sac. Bilateral hypertrophic facet arthropathy. Bilateral uncovertebral joint disease. No spinal canal stenosis. Bilateral neuroforaminal stenosis. C7-T1: No diffuse disc bulge or focal herniation. No spinal canal stenosis. No neuroforaminal stenosis. SOFT TISSUES: No acute abnormality. OTHER: None. MRI THORACIC SPINE: ALIGNMENT: Normal. VERTEBRAE: No MR evidence of acute-subacute fracture. Vertebral body heights maintained. Spondylosis. Marrow signal within normal limits. DISCS: Multilevel variable intervertebral disc desiccation and loss of intervertebral disc height of the visualized cervicothoracic spine. HARDWARE: None in the thoracic spine. CORD: Normal in size and signal intensity. INDIVIDUAL DISC LEVELS: T10-11: Annular disc bulge indenting the ventral thecal sac. Bilateral facet arthropathy. No spinal canal stenosis. No neuroforaminal stenosis. T11-12: Annular disc bulge indenting the ventral thecal sac. Bilateral facet arthropathy. No spinal canal stenosis. No neuroforaminal stenosis. SOFT TISSUES: No acute abnormality. OTHER: Scattered perineural sleeve cysts. MRI LUMBAR SPINE: SEGMENTATION: No lumbosacral transitional anatomy. The lowest fully formed intervertebral disc level is labeled L5-S1. ALIGNMENT: Minimal retrolisthesis L5 on S1. VERTEBRAE: No MR evidence of acute-subacute fracture. Vertebral body heights unchanged. Spondylosis. Scattered hemangiomas and patchy fatty marrow placement about the osseous architecture. DISCS: Multilevel variable intervertebral disc desiccation and loss of intervertebral disc height of the visualized cervicothoracic spine. HARDWARE: None in the lumbar spine. CORD: Normal in size and signal intensity with conus medullaris termination at L1-2. No abnormal enhancement. INDIVIDUAL DISC LEVELS: T12-L1: No diffuse disc bulge or focal herniation. No spinal canal stenosis. No neuroforaminal stenosis. L1-2: No diffuse disc bulge or focal herniation. No spinal canal stenosis. No neuroforaminal stenosis. L2-3: No diffuse disc bulge or focal herniation. No spinal canal stenosis. No neuroforaminal stenosis. L3-4: No diffuse disc bulge or focal herniation. Bilateral hypertrophic facet arthropathy. No spinal canal stenosis. No neuroforaminal stenosis. L4-5: No significant diffuse disc bulge or focal herniation. Bilateral hypertrophic facet arthropathy. No spinal canal stenosis. No significant neuroforaminal stenosis. L5-S1: Slightly overhanging posterior cortical margin with mild posterior osteophytosis and annular disc bulge with right eccentric central-right subarticular disc protrusion. Bilateral hypertrophic facet arthropathy. Slight compromise of the bilateral lateral recesses, noting variable slight disc abutment of the descending bilateral S1 nerve roots. No spinal canal stenosis. Mild left neuroforaminal stenosis, noting slight disc contact with the exiting left L5 nerve root. SACRUM: Visualized portions of the sacrum unremarkable. SOFT TISSUES: Within the limitations of motion artifact, no overt evidence of acute abnormality. OTHER: None. Procedure Note Luis Farncois MD - 02/23/2025 EXAMINATION: MRI CERVICAL SPINE WO CONTRAST, MRI LUMBAR SPINE W WO CONTRAST, MRI THORACIC SPINE WO CONTRAST REASON FOR STUDY: Chronic bilateral, left greater than right, neck pain radiating down unspecified radicular levels of the left shoulder. TECHNIQUE: Sagittal and axial imaging of the cervical, thoracic, and lumbar spine includes T1, T2, STIR and gradient echo sequences. Multiplanar T1 postcontrast sequences acquired of the lumbar spine. Images saved to PACS. CONTRAST: 15 mL Gadoterate Meglumine was administered via peripheral IV site. COMPARISON: MRI cervical spine without contrast 02/06/2024 and 04/04/2022; relevant portions of CT soft tissue neck without contrast 06/15/2020 cervical spine and left shoulder radiographs 01/01/2024; relevant portions of CT abdomen and pelvis with contrast 04/06/2023 oh (images without report); FINDINGS: MRI CERVICAL SPINE: ALIGNMENT: Normal. VERTEBRAE: No MR evidence of acute-subacute fracture. Vertebral body heights maintained. Spondylosis. Marrow signal within normal limits. DISCS: Multilevel variable intervertebral disc desiccation and loss of intervertebral disc height of the visualized cervicothoracic spine. BASE OF BRAIN: No acute abnormality. HARDWARE: None in the cervical spine. CORD: Normal in size and signal intensity. INDIVIDUAL DISC LEVELS: C1-2: No spinal canal stenosis. C2-3: Posterior disc osteophyte complex eccentric to the left indenting the left eccentric ventral thecal sac. Bilateral facet arthropathy. Bilateral uncovertebral joint disease. No spinal canal stenosis. No neuroforaminal stenosis. C3-4: No diffuse disc bulge or focal herniation. Bilateral hypertrophic facet arthropathy. Bilateral uncovertebral joint disease. No spinal canal stenosis. No significant neuroforaminal stenosis. C4-5: Mild posterior disc osteophyte complex with tiny central disc protrusion indenting the ventral thecal sac. Left greater than right hypertrophic facet arthropathy. Bilateral uncovertebral joint disease. No spinal canal stenosis. Bilateral neuroforaminal stenosis. C5-6: Slight posterior disc osteophyte complex. Bilateral hypertrophic facet arthropathy. Bilateral uncovertebral joint disease. No spinal canal stenosis. Slight bilateral neuroforaminal stenosis. C6-7: Posterior disc osteophyte complex indenting the ventral thecal sac. Bilateral hypertrophic facet arthropathy. Bilateral uncovertebral joint disease. No spinal canal stenosis. Bilateral neuroforaminal stenosis. C7-T1: No diffuse disc bulge or focal herniation. No spinal canal stenosis. No neuroforaminal stenosis. SOFT TISSUES: No acute abnormality. OTHER: None. MRI THORACIC SPINE: ALIGNMENT: Normal. VERTEBRAE: No MR evidence of acute-subacute fracture. Vertebral body heights maintained. Spondylosis. Marrow signal within normal limits. DISCS: Multilevel variable intervertebral disc desiccation and loss of intervertebral disc height of the visualized cervicothoracic spine. HARDWARE: None in the thoracic spine. CORD: Normal in size and signal intensity. INDIVIDUAL DISC LEVELS: T10-11: Annular disc bulge indenting the ventral thecal sac. Bilateral facet arthropathy. No spinal canal stenosis. No neuroforaminal stenosis. T11-12: Annular disc bulge indenting the ventral thecal sac. Bilateral facet arthropathy. No spinal canal stenosis. No neuroforaminal stenosis. SOFT TISSUES: No acute abnormality. OTHER: Scattered perineural sleeve cysts. MRI LUMBAR SPINE: SEGMENTATION: No lumbosacral transitional anatomy. The lowest fully formed intervertebral disc level is labeled L5-S1. ALIGNMENT: Minimal retrolisthesis L5 on S1. VERTEBRAE: No MR evidence of acute-subacute fracture. Vertebral body heights unchanged. Spondylosis. Scattered hemangiomas and patchy fatty marrow placement about the osseous architecture. DISCS: Multilevel variable intervertebral disc desiccation and loss of intervertebral disc height of the visualized cervicothoracic spine. HARDWARE: None in the lumbar spine. CORD: Normal in size and signal intensity with conus medullaris termination at L1-2. No abnormal enhancement. INDIVIDUAL DISC LEVELS: T12-L1: No diffuse disc bulge or focal herniation. No spinal canal stenosis. No neuroforaminal stenosis. L1-2: No diffuse disc bulge or focal herniation. No spinal canal stenosis. No neuroforaminal stenosis. L2-3: No diffuse disc bulge or focal herniation. No spinal canal stenosis. No neuroforaminal stenosis. L3-4: No diffuse disc bulge or focal herniation. Bilateral hypertrophic facet arthropathy. No spinal canal stenosis. No neuroforaminal stenosis. L4-5: No significant diffuse disc bulge or focal herniation. Bilateral hypertrophic facet arthropathy. No spinal canal stenosis. No significant neuroforaminal stenosis. L5-S1: Slightly overhanging posterior cortical margin with mild posterior osteophytosis and annular disc bulge with right eccentric central-right subarticular disc protrusion. Bilateral hypertrophic facet arthropathy. Slight compromise of the bilateral lateral recesses, noting variable slight disc abutment of the descending bilateral S1 nerve roots. No spinal canal stenosis. Mild left neuroforaminal stenosis, noting slight disc contact with the exiting left L5 nerve root. SACRUM: Visualized portions of the sacrum unremarkable. SOFT TISSUES: Within the limitations of motion artifact, no overt evidence of acute abnormality. OTHER: None. IMPRESSION: 1. Spondylosis and degenerative disc disease of the cervical spine as detailed level by level above. 2. Spondylosis and degenerative disc disease of the thoracic spine as detailed level by level above. 3. Spondylosis and degenerative disc disease of the lumbar spine as detailed level by level above. Electronically signed by: Luis Francois M.D. Genoveva Barragan MAGNETIC RESONANCE IMAGING COORDINATOR IMG MRI PROCEDURES Samia l Result * MRI Cervical Spine WO Contrast (02/23/2025 8:07 AM PRODUCTION METAL SPRAYER) Anatomical Region Laterality Modality Spine N/A Magnetic Resonan ce 02/23/2025 10:1 6 AM PRODUCTION METAL SPRAYER Impressions 02/23/2025 10:16 AM PRODUCTION METAL SPRAYER 1. Spondylosis and degenerative disc disease of the cervical spine as detailed level by level above. 2. Spondylosis and degenerative disc disease of the thoracic spine as detailed level by level above. 3. Spondylosis and degenerative disc disease of the lumbar spine as detailed level by level above. Electronically signed by: Luis Francois M.D. Narrative 02/23/2025 10:16 AM PRODUCTION METAL SPRAYER EXAMINATION: MRI CERVICAL SPINE WO CONTRAST, MRI LUMBAR SPINE W WO CONTRAST, MRI THORACIC SPINE WO CONTRAST REASON FOR STUDY: Chronic bilateral, left greater than right, neck pain radiating down unspecified radicular levels of the left shoulder. TECHNIQUE: Sagittal and axial imaging of the cervical, thoracic, and lumbar spine includes T1, T2, STIR and gradient echo sequences. Multiplanar T1 postcontrast sequences acquired of the lumbar spine. Images saved to PACS. CONTRAST: 15 mL Gadoterate Meglumine was administered via peripheral IV site. COMPARISON: MRI cervical spine without contrast 02/06/2024 and 04/04/2022; relevant portions of CT soft tissue neck without contrast 06/15/2020 cervical spine and left shoulder radiographs 01/01/2024; relevant portions of CT abdomen and pelvis with contrast 04/06/2023 oh (images without report); FINDINGS: MRI CERVICAL SPINE: ALIGNMENT: Normal. VERTEBRAE: No MR evidence of acute-subacute fracture. Vertebral body heights maintained. Spondylosis. Marrow signal within normal limits. DISCS: Multilevel variable intervertebral disc desiccation and loss of intervertebral disc height of the visualized cervicothoracic spine. BASE OF BRAIN: No acute abnormality. HARDWARE: None in the cervical spine. CORD: Normal in size and signal intensity. INDIVIDUAL DISC LEVELS: C1-2: No spinal canal stenosis. C2-3: Posterior disc osteophyte complex eccentric to the left indenting the left eccentric ventral thecal sac. Bilateral facet arthropathy. Bilateral uncovertebral joint disease. No spinal canal stenosis. No neuroforaminal stenosis. C3-4: No diffuse disc bulge or focal herniation. Bilateral hypertrophic facet arthropathy. Bilateral uncovertebral joint disease. No spinal canal stenosis. No significant neuroforaminal stenosis. C4-5: Mild posterior disc osteophyte complex with tiny central disc protrusion indenting the ventral thecal sac. Left greater than right hypertrophic facet arthropathy. Bilateral uncovertebral joint disease. No spinal canal stenosis. Bilateral neuroforaminal stenosis. C5-6: Slight posterior disc osteophyte complex. Bilateral hypertrophic facet arthropathy. Bilateral uncovertebral joint disease. No spinal canal stenosis. Slight bilateral neuroforaminal stenosis. C6-7: Posterior disc osteophyte complex indenting the ventral thecal sac. Bilateral hypertrophic facet arthropathy. Bilateral uncovertebral joint disease. No spinal canal stenosis. Bilateral neuroforaminal stenosis. C7-T1: No diffuse disc bulge or focal herniation. No spinal canal stenosis. No neuroforaminal stenosis. SOFT TISSUES: No acute abnormality. OTHER: None. MRI THORACIC SPINE: ALIGNMENT: Normal. VERTEBRAE: No MR evidence of acute-subacute fracture. Vertebral body heights maintained. Spondylosis. Marrow signal within normal limits. DISCS: Multilevel variable intervertebral disc desiccation and loss of intervertebral disc height of the visualized cervicothoracic spine. HARDWARE: None in the thoracic spine. CORD: Normal in size and signal intensity. INDIVIDUAL DISC LEVELS: T10-11: Annular disc bulge indenting the ventral thecal sac. Bilateral facet arthropathy. No spinal canal stenosis. No neuroforaminal stenosis. T11-12: Annular disc bulge indenting the ventral thecal sac. Bilateral facet arthropathy. No spinal canal stenosis. No neuroforaminal stenosis. SOFT TISSUES: No acute abnormality. OTHER: Scattered perineural sleeve cysts. MRI LUMBAR SPINE: SEGMENTATION: No lumbosacral transitional anatomy. The lowest fully formed intervertebral disc level is labeled L5-S1. ALIGNMENT: Minimal retrolisthesis L5 on S1. VERTEBRAE: No MR evidence of acute-subacute fracture. Vertebral body heights unchanged. Spondylosis. Scattered hemangiomas and patchy fatty marrow placement about the osseous architecture. DISCS: Multilevel variable intervertebral disc desiccation and loss of intervertebral disc height of the visualized cervicothoracic spine. HARDWARE: None in the lumbar spine. CORD: Normal in size and signal intensity with conus medullaris termination at L1-2. No abnormal enhancement. INDIVIDUAL DISC LEVELS: T12-L1: No diffuse disc bulge or focal herniation. No spinal canal stenosis. No neuroforaminal stenosis. L1-2: No diffuse disc bulge or focal herniation. No spinal canal stenosis. No neuroforaminal stenosis. L2-3: No diffuse disc bulge or focal herniation. No spinal canal stenosis. No neuroforaminal stenosis. L3-4: No diffuse disc bulge or focal herniation. Bilateral hypertrophic facet arthropathy. No spinal canal stenosis. No neuroforaminal stenosis. L4-5: No significant diffuse disc bulge or focal herniation. Bilateral hypertrophic facet arthropathy. No spinal canal stenosis. No significant neuroforaminal stenosis. L5-S1: Slightly overhanging posterior cortical margin with mild posterior osteophytosis and annular disc bulge with right eccentric central-right subarticular disc protrusion. Bilateral hypertrophic facet arthropathy. Slight compromise of the bilateral lateral recesses, noting variable slight disc abutment of the descending bilateral S1 nerve roots. No spinal canal stenosis. Mild left neuroforaminal stenosis, noting slight disc contact with the exiting left L5 nerve root. SACRUM: Visualized portions of the sacrum unremarkable. SOFT TISSUES: Within the limitations of motion artifact, no overt evidence of acute abnormality. OTHER: None. Procedure Note Luis Francois MD - 02/23/2025 EXAMINATION: MRI CERVICAL SPINE WO CONTRAST, MRI LUMBAR SPINE W WO CONTRAST, MRI THORACIC SPINE WO CONTRAST REASON FOR STUDY: Chronic bilateral, left greater than right, neck pain radiating down unspecified radicular levels of the left shoulder. TECHNIQUE: Sagittal and axial imaging of the cervical, thoracic, and lumbar spine includes T1, T2, STIR and gradient echo sequences. Multiplanar T1 postcontrast sequences acquired of the lumbar spine. Images saved to PACS. CONTRAST: 15 mL Gadoterate Meglumine was administered via peripheral IV site. COMPARISON: MRI cervical spine without contrast 02/06/2024 and 04/04/2022; relevant portions of CT soft tissue neck without contrast 06/15/2020 cervical spine and left shoulder radiographs 01/01/2024; relevant portions of CT abdomen and pelvis with contrast 04/06/2023 oh (images without report); FINDINGS: MRI CERVICAL SPINE: ALIGNMENT: Normal. VERTEBRAE: No MR evidence of acute-subacute fracture. Vertebral body heights maintained. Spondylosis. Marrow signal within normal limits. DISCS: Multilevel variable intervertebral disc desiccation and loss of intervertebral disc height of the visualized cervicothoracic spine. BASE OF BRAIN: No acute abnormality. HARDWARE: None in the cervical spine. CORD: Normal in size and signal intensity. INDIVIDUAL DISC LEVELS: C1-2: No spinal canal stenosis. C2-3: Posterior disc osteophyte complex eccentric to the left indenting the left eccentric ventral thecal sac. Bilateral facet arthropathy. Bilateral uncovertebral joint disease. No spinal canal stenosis. No neuroforaminal stenosis. C3-4: No diffuse disc bulge or focal herniation. Bilateral hypertrophic facet arthropathy. Bilateral uncovertebral joint disease. No spinal canal stenosis. No significant neuroforaminal stenosis. C4-5: Mild posterior disc osteophyte complex with tiny central disc protrusion indenting the ventral thecal sac. Left greater than right hypertrophic facet arthropathy. Bilateral uncovertebral joint disease. No spinal canal stenosis. Bilateral neuroforaminal stenosis. C5-6: Slight posterior disc osteophyte complex. Bilateral hypertrophic facet arthropathy. Bilateral uncovertebral joint disease. No spinal canal stenosis. Slight bilateral neuroforaminal stenosis. C6-7: Posterior disc osteophyte complex indenting the ventral thecal sac. Bilateral hypertrophic facet arthropathy. Bilateral uncovertebral joint disease. No spinal canal stenosis. Bilateral neuroforaminal stenosis. C7-T1: No diffuse disc bulge or focal herniation. No spinal canal stenosis. No neuroforaminal stenosis. SOFT TISSUES: No acute abnormality. OTHER: None. MRI THORACIC SPINE: ALIGNMENT: Normal. VERTEBRAE: No MR evidence of acute-subacute fracture. Vertebral body heights maintained. Spondylosis. Marrow signal within normal limits. DISCS: Multilevel variable intervertebral disc desiccation and loss of intervertebral disc height of the visualized cervicothoracic spine. HARDWARE: None in the thoracic spine. CORD: Normal in size and signal intensity. INDIVIDUAL DISC LEVELS: T10-11: Annular disc bulge indenting the ventral thecal sac. Bilateral facet arthropathy. No spinal canal stenosis. No neuroforaminal stenosis. T11-12: Annular disc bulge indenting the ventral thecal sac. Bilateral facet arthropathy. No spinal canal stenosis. No neuroforaminal stenosis. SOFT TISSUES: No acute abnormality. OTHER: Scattered perineural sleeve cysts. MRI LUMBAR SPINE: SEGMENTATION: No lumbosacral transitional anatomy. The lowest fully formed intervertebral disc level is labeled L5-S1. ALIGNMENT: Minimal retrolisthesis L5 on S1. VERTEBRAE: No MR evidence of acute-subacute fracture. Vertebral body heights unchanged. Spondylosis. Scattered hemangiomas and patchy fatty marrow placement about the osseous architecture. DISCS: Multilevel variable intervertebral disc desiccation and loss of intervertebral disc height of the visualized cervicothoracic spine. HARDWARE: None in the lumbar spine. CORD: Normal in size and signal intensity with conus medullaris termination at L1-2. No abnormal enhancement. INDIVIDUAL DISC LEVELS: T12-L1: No diffuse disc bulge or focal herniation. No spinal canal stenosis. No neuroforaminal stenosis. L1-2: No diffuse disc bulge or focal herniation. No spinal canal stenosis. No neuroforaminal stenosis. L2-3: No diffuse disc bulge or focal herniation. No spinal canal stenosis. No neuroforaminal stenosis. L3-4: No diffuse disc bulge or focal herniation. Bilateral hypertrophic facet arthropathy. No spinal canal stenosis. No neuroforaminal stenosis. L4-5: No significant diffuse disc bulge or focal herniation. Bilateral hypertrophic facet arthropathy. No spinal canal stenosis. No significant neuroforaminal stenosis. L5-S1: Slightly overhanging posterior cortical margin with mild posterior osteophytosis and annular disc bulge with right eccentric central-right subarticular disc protrusion. Bilateral hypertrophic facet arthropathy. Slight compromise of the bilateral lateral recesses, noting variable slight disc abutment of the descending bilateral S1 nerve roots. No spinal canal stenosis. Mild left neuroforaminal stenosis, noting slight disc contact with the exiting left L5 nerve root. SACRUM: Visualized portions of the sacrum unremarkable. SOFT TISSUES: Within the limitations of motion artifact, no overt evidence of acute abnormality. OTHER: None. IMPRESSION: 1. Spondylosis and degenerative disc disease of the cervical spine as detailed level by level above. 2. Spondylosis and degenerative disc disease of the thoracic spine as detailed level by level above. 3. Spondylosis and degenerative disc disease of the lumbar spine as detailed level by level above. Electronically signed by: Luis Francois M.D. Genoveva Barragan MAGNETIC RESONANCE IMAGING COORDINATOR IMG MRI PROCEDURES Samia l Result * Troponin T high-sensitivity 2-hour (12/26/2024 2:29 PM CDT) Trop T hs 6 <=14 ng/L Comment: Interpretive Data For further hscTnT resources including the diagnostic algorithm and an aid in interpretation, copy and paste this link: [email or web address].testcatalog.org/[email or web address] Current Interpretive Data last revised 2020. Trop T hs delta 0 ng/L R[facility] Trop T hs interp Insignificant [facility] Blood 12/26/2024 2:29 PM CDT 12/26/2024 2:34 PM CDT Elaina Fermin DO LAB BLOOD ORDERABLES Samia l Result RIVAS [id number] Department [place] [address] * Magnesium (12/26/2024 2:29 PM CDT) Magnesium 1.9 1.4 - 2.5 mg/dL Blood 12/26/2024 2:29 PM CDT 12/26/2024 2:34 PM CDT Valentin NAIK LAB BLOOD ORDERABLES Final Result Performing Organization Address [facility]/ZIP Co de Phone Number RIVAS LLOYD [phone] [place] [address] * Urinalysis reflex to microscopic and culture Urine (12/26/2024 1:02 PM CDT) Color, ur Straw Yellow Clarity, ur Clear Clear CERNER CH Specific gravity, ur 1.004 1.003 - 1.030 CERNER CH pH, urine 7.5 CERNER CH Comment: Interpretive Data U rine pH is affected by diet, medications, systemic acid-base disturbances, and renal tubular function. pH may affect urinary stone formation. For example, urine pH below 6.0 may help reduce the tendency for calcium phosphate stones and pH greater than 6.0 may reduce the tendency for uric acid stone formation. Source: [facility] Current Interpretive Data was last revised on 2017 Protein, ur ql Negative Negative CERNER CH Glucose, ur ql Negative Negative CERNER CH Ketones, ur Negative Negative CERNER CH Bilirubin, ur Negative Negative CERNER CH Blood, ur Negative Negative CERNER CH Urobilinogen, ur <2.0 <2.0 mg/dL CERNER CH Nitrite, ur Negative Negative CERNER CH Leukocyte esterase, ur Negative Negative CERNER CH UA reflex comment Reflex conditions for microscopic UA and culture not met. CERNER Urine 12/26/2024 1:02 PM CDT 12/26/2024 1:26 PM CDT Valentin NAIK LAB MICROBIOLOGY - GE NERAL ORDERABLES Final Result Performing Organization Address City/[facility]/ZIP Co de Phone Number RIVAS LLOYD [phone] [place] [address] * D-dimer, quantitative (12/26/2024 12:48 PM CDT) D-Dimer 245 <=499 ng/mL FEU Comment: Interpretive data FDA approved the D-dimer, in conjunction with a low or moderate pretest probability score, to exclude venous thromboembolic events (VTE) (PE and DVT) in outpatients when the D-dimer result is < 500 ng/ml FEU. Evidence supports using an age-adjusted D-dimer cut-off for outpatients older than 50 (age x 10) to improve specificity without sacrificing sensitivity. Example: age 68, VTE cut-off 680 ng/ml FEU. References; Schoutjohnson HT et al. Brit Med J. 2013;346:f2492. Paige et al. Annals Int Med. 2015;163:701-11. Current interpretive data was last revised on 2019. Blood 12/26/2024 12:4 8 PM CDT 12/26/2024 1:00 PM CDT Valentin NAIK LAB BLOOD ORDERABLES Final Result Performing Organization Address [facility] Co de Phone Number RIVAS [phone] [facility] [place] [address] * Lipase (12/26/2024 12:48 PM CDT) Lipase 65 10 - 99 Units/L Blood 12/26/2024 12:4 8 PM CDT 12/26/2024 1:01 PM CDT Valentin NAIK LAB BLOOD ORDERABLES Final Result Performing Organization Address [facility] de Phone Number [facility] [id number] [facility] [place] [address] * Troponin T high-sensitivity series (baseline, 2hr, 4hr, 6hr) (12/26/2024 12:16 PM CDT) Trop T hs <6 <=14 ng/L Comment: Interpretive Data For further hscTnT resources including the diagnostic algorithm and an aid in interpretation, copy and paste this link: [email or web address].testcatalog.org/[email or web address] Current Interpretive Data last revised 2020. Blood 12/26/2024 12:1 6 PM CDT 12/26/2024 12:23 PM CDT Elaina Martix DO LAB BLOOD ORDERABLES Samia l Result Performing Organization Address City/[facility]/ZIP Co de Phone Number RIVAS LLOYD [phone] Department [place] [address] * eGFR (12/26/2024 12:16 PM CDT) eGFR >90 >=60 mL/min/1. 73 m2 Comment: Interpretive Data [...] Current interpretive data was last reviewed 2021. Blood 12/26/2024 12:1 6 PM CDT 12/26/2024 12:23 PM CDT Elaina Martix DO LAB BLOOD ORDERABLES Samia l Result RIVAS LLOYD [address] Department [place] [address] * Differential, auto (12/26/2024 12:16 PM CDT) Neutrophil abs 3.15 1.50 - 6.50 K/cumm Imm gran abs 0.01 0.00 - 0.10 K/cumm CERNER Lymphocyte abs 2.14 0.80 - 3.30 K/cumm [facility] Monocyte abs 0.35 0.20 - 0.80 K/cumm [facility] Eosinophil abs 0.15 0.00 - 0.50 K/cumm [facility] Basophil abs 0.04 0.00 - 0.10 K/cumm [facility] Neutrophil pct 53.9 % [facility] Comment: Interpretive Data Percent cell count reference ranges are not reported, since discordance with absolute values may lead to misinterpretation of CBC data. Current Interpretive Data was last revised on 2017. Imm gran pct 0.2 % [facility] Comment: Interpretive Data Percent cell count reference ranges are not reported, since discordance with absolute values may lead to misinterpretation of CBC data. Current Interpretive Data was last revised on 2017. Lymphocyte pct 36.6 % [facility] Comment: Interpretive Data Percent cell count reference ranges are not reported, since discordance with absolute values may lead to misinterpretation of CBC data. Current Interpretive Data was last revised on 2017. Monocyte pct 6.0 % [facility] Comment: Interpretive Data Percent cell count reference ranges are not reported, since discordance with absolute values may lead to misinterpretation of CBC data. Current Interpretive Data was last revised on 2017. Eosinophil pct 2.6 % [facility] Comment: Interpretive Data Percent cell count reference ranges are not reported, since discordance with absolute values may lead to misinterpretation of CBC data. Current Interpretive Data was last revised on 2017. Basophil pct 0.7 % [facility] Comment: Interpretive Data Percent cell count reference ranges are not reported, since discordance with absolute values may lead to misinterpretation of CBC data. Current Interpretive Data was last revised on 2017. Blood 12/26/2024 12:1 6 PM CDT 12/26/2024 12:19 PM CDT us Elaina Fermin DO LAB BLOOD ORDERABLES Samia massey Result RIVAS [address] Department [place] [address] * Thyroid Function Ware (12/26/2024 12:16 PM CDT) Pathologist [facility] TSH 1.58 0.30 - 4.20 mcIUnit/mL Blood 12/26/2024 12:1 6 PM CDT 12/26/2024 12:23 PM CDT Valentin Ramos PA LAB BLOOD ORDERABLES Final Result Performing Organization Address City/[facility]/ZIP Co de Phone Number RIVAS [address] [place] [address] * CBC with auto differential (12/26/2024 12:16 PM CDT) Pathologist [facility] WBC 5.84 3.80 - 9.90 K/cumm Hgb 12.9 11.9 - 15.5 g/dL [facility] Hct 37.3 35.6 - 45.5 % [facility] Plt 240 150 - 400 K/cumm [facility] MPV 9.8 9.1 - 12.3 fL [facility] RBC 4.56 3.90 - 5.20 M/cumm [facility] MCV 81.8 81.3 - 96.4 fL [facility] MCH 28.3 27.1 - 33.3 pg [facility] MCHC 34.6 32.3 - 35.7 g/dL [facility] RDW CV 13.2 11.1 - 14.9 % [facility] RDW SD 39.5 35.7 - 48.1 fL [facility] NRBC abs 0.00 0.00 - 0.01 K/cumm [facility] Blood Venous blood specimen / Unknown 12/26/2024 12:16 PM CDT 12/26/2024 12:19 PM CDT Elaina Fermin DO LAB BLOOD ORDERABLES Samia l Result Performing Organization Address City/[facility]/ZIP Co de Phone Number RIVAS [place] [employer] [place] [address] * (ABNORMAL) Comprehensive metabolic panel (12/26/2024 12:16 PM CDT) Pathologist [facility] Sodium 139 135 - 145 mmol/L Potassium, pl 2.9(L) 3.3 - 4.9 mmol/L [facility] Chloride 101 97 - 110 mmol/L [facility] CO2 23 22 - 32 mmol/L [facility] Anion gap 15 2 - 15 mmol/L [facility] BUN 16 6 - 25 mg/dL [facility] Creatinine 0.70 0.60 - 1.10 mg/dL [facility] Glucose 100 70 - 199 mg/dL [facility] Comment: Interpretive Data Fasting glucose >/= 126 [...] Current interpretive data was last revised 2022. Calcium 9.7 8.5 - 10.3 mg/dL [facility] Bilirubin, total 0.5 0.1 - 1.2 mg/dL [facility] Protein, pl 7.3 6.5 - 8.5 g/dL [facility] Albumin 4.3 3.5 - 5.0 g/dL [facility] Alk phos 51 40 - 130 Units/L [facility] ALT 30 7 - 45 Units/L [facility] AST 24 10 - 45 Units/L [facility] Blood 12/26/2024 12:1 6 PM CDT 12/26/2024 12:23 PM CDT us Elaina Fermin DO LAB BLOOD ORDERABLES Samia l Result [facility] [address] Department [place] [address] * XR Chest 1 Vw Portable (If patient hemodynamically UNstable or UNable to ambulate) (12/26/2024 12:13 PM CDT) Anatomical Region Laterality Modality Body, Chest N/A Computed Radiogr aphy 12/26/2024 1:16 PM CDT Impressions 12/26/2024 1:16 PM CDT No active disease. Electronically signed by: Georgette Will M.D. Narrative 12/26/2024 1:16 PM CDT EXAMINATION: XR CHEST 1 VIEW HISTORY: The patient is a 49-year-old female who presents with chest pain. TECHNIQUE: AP portable view of the chest. FINDINGS: Lungs clear. Cardiovascular structures unremarkable. Procedure Note Georgette Will MD - 12/26/2024 EXAMINATION: XR CHEST 1 VIEW HISTORY: The patient is a 49-year-old female who presents with chest pain. TECHNIQUE: AP portable view of the chest. FINDINGS: Lungs clear. Cardiovascular structures unremarkable. IMPRESSION: No active disease. Electronically signed by: Georgette Will M.D. Elaina Fermin DO IMG XR PROCEDURES Final R esult * ECG 12 lead (12/26/2024 12:04 PM CDT) 12/26/2024 12:0 4 PM CDT Narrative [facility] - 12/26/2024 1:04 PM CDT Vent Rate: 77 bpm RR Interval: 776 msec AL Interval: 143 msec QRS Duration: 99 msec QT Interval: 398 msec QTC Interval: 430 msec P-R-T [place]: 70 - 87 - 1 degrees IMPRESSION: SINUS RHYTHM ST-T ABNORMALITY, CONSIDER ISCHEMIA Electronically Signed By: Maxim Rivers MD, [facility] Elaina Fermin DO ECG ORDERABLES Edited Re sult - Final [facility] * Screening Mammogram (04/14/2021) Anatomical Region Laterality Modality Breast N/A Mammography 04/14/2021 Historical Provider IMG MAMMO PROCEDURES Samia l Result from Last 3 Months or Most Recently Relevant to Health [place] [address] [place] [address] [facility] [place] [address] [place] [address] [address] [place] [address] [place] [address] [employer] Advance Directives For more information, please contact: [phone] * Full Code (Latest Code Status on File) Date Activated Date Inactivated Comments 05/09/2022 4:01 PM 05/10/2022 12:16 AM * Full Code Date Activated Date Inactivated Comments 08/28/2020 8:00 AM 08/28/2020 7:16 PM * Full Code Date Activated Date Inactivated Comments 08/27/2020 8:43 PM 08/28/2020 8:00 AM Care Teams Administrative Operations Coordinator Relationship Specialty [place] [address] [facility] [address] PCP - General 05/16/11 Estella Kim MD [address] [place] [address] Referring Physician Surgical Oncology 05/09/22
--- OUTSIDE RECORDS SUMMARY | 2025-02-27 17:00 | XMS_ITS | Encounter Summary ---
Author Organization [facility] Address [address] [place] [address] Phone Care Team Providers Care Requirements Manager Name Role Phone Iraj Rogers MD Primary Care Provider + Pete Kim MD Unavailable [phone] Encounter Details Date Type Department Care Team (Late st Contact Info) Description 04/26/2022 Telephone [facility] [address] [facility] 5th [place] [address] Pete Kim MD [address] [place] [address] Social History Tobacco Use Types [...] on file Legal Sex Female 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 Gender Identity Female 03/24/2020 10:33 AM SLITTING MACHINE FEEDER Sexual Orientation Straight 03/24/2020 10 :33 AM SLITTING MACHINE FEEDER documented as of this encounter Plan of Treatment Not on file documented as of this encounter Visit Diagnoses Not on filedocumented in this encounter Additional Health Concerns Infection Onset Date Last Indicated Resolved Time COVID: Suspected 11/07/2023 11/07/2023 11/07/2023 6:03 PM CDT COVID: Suspected 02/26/2024 02/26/2024 02/26/2024 9:17 AM SLITTING MACHINE FEEDER documented as of this encounter Care Teams Requirements Manager Relationship Specialty [place] [address] [address] [place] [address] PCP - General 05/16/11 Pete Kim MD [address] [place] [address] Referring Physician Surgical Oncology 05/09/22 documented as of this encounter
--- OUTSIDE RECORDS SUMMARY | 2025-02-27 17:00 | XMS_ITS | Encounter Summary ---
Author Organization [facility] Address [address] [place] [address] Phone Care Team Providers Care Talent Acquisition Relationship Manager Name Role Phone Iraj Rogers MD Primary Care Provider + Pete Kim MD Unavailable [phone] Encounter Details Date Type Department Care Team (Latest Contact Info) Description 12/19/2019 Orders Only [facility] E[facility] Scanning, Provider Social History Tobacco Use Types Packs/Day Years Used Date Smoking Tobacco: Never Assessed Comments Unknown Sex and Gender Information Value Date Recorded Sex Assigned at Not on file 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 Gender Identity Female 03/24/2020 10:33 AM GRINDING WHEEL INSPECTOR Sexual Orientation Straight 03/24/2020 10 :33 AM GRINDING WHEEL INSPECTOR documented as of this encounter Plan of [...] COVID: Suspected 04/08/2021 04/08/2021 04/08/2021 9:22 AM GRINDING WHEEL INSPECTOR COVID: Suspected 11/07/2023 11/07/2023 11/07/2023 6:03 PM CDT COVID: Suspected 02/26/2024 02/26/2024 02/26/2024 9:17 AM GRINDING WHEEL INSPECTOR documented as of this encounter Care Teams Talent Acquisition Relationship Manager Relationship Specialty [place] [address] [address] [place] [address] PCP - General 05/16/11 Pete Kim MD [address] [place] [address] Referring Physician Surgical Oncology 05/09/22 documented as of this encounter
--- OUTSIDE RECORDS SUMMARY | 2025-02-27 17:00 | XMS_ITS | Clinical Summary ---
Author Organization [facility] Address [address] [facility] [place] [address] Care Team Providers Care Nursing Education Consultant Name Role Phone Unavailable Primary Care Provider Unavailabl e Social History Tobacco Use Types Packs/Day Years Used Date Smoking Tobacco: Never Assessed Comments Unknown Sex and Gender Information Value Date Recorded Sex Assigned at Not on file Legal Sex Female 11:51 AM EDT Gender Identity Not on file Sexual Orientation Not on file Plan of Treatment Not on file Medical Devices [place] [id number] [facility]
--- OUTSIDE RECORDS SUMMARY | 2025-02-27 17:02 | XMS_ITS | Clinical Summary ---
Author Organization [facility] Address [address] [place] [address] Care Team Providers Care Cataract Lens Generator Name Role Phone Iraj Rogers MD Primary Care Provider [phone] Encounters Date Type Department Care Team Description 12/09/2024 1:08 PM CDT - 12/09/2024 11:59 PM CDT Hospital Encounter [facility] [address] [place] [address] Carmen Tripp, OPTICAL GOODS DRILL OPERATOR Discharge Disposition: Home or Self Care (Routine [...] HPV 01/03/2006 Mammogram Screening 2016 PHQ-2 (Physician Kaw) 03/05/2024 COVID-19 Vaccine ( - 2024- 6 season) 2024 02/12/2022, 02/27/2021 Influenza Adult (#1) 2024 02/12/2022, 02/27/2021 Hepatitis A Vaccines Aged Out No long er eligible based on patient's age to complete this topic Meningococcal B Vaccine Aged Out No l [...] 1:36 PM Narrative 12/09/2024 1:38 PM CDT [address] [address] XR WRIST RT MIN 3V INDICATION: rt wrist injury, fall. TECHNIQUE: AP, lateral, oblique, and navicular views of the right wrist. 4 total images. COMPARISON: None FINDINGS: Carpal alignment appears maintained. Osseous structures are intact without convincing evidence for acute fracture or dislocation. Joint spaces are preserved. No aggressive osseous lesion. No radiopaque foreign body. Procedure Note Damaso Farrell MD - 12/09/2024 [address] [place] [address] XR WRIST RT MIN 3V INDICATION: rt [...] MD, 12/09/2024 1:36 PM us Carmen Tripp OPTICAL GOODS DRILL OPERATOR GENERAL IMAGING Final Result from Last 3 [place] [address] [facility] Care Teams Cataract Lens Generator Relationship Specialty [place] [address] [place] [address] PCP - General INTERNAL MEDICINE GERIATRIC MEDICINE 12/09/24
[2025-02-27 17:07] VITALS: BP 111/73; PULSE 76; RESP 16; TEMP 36.6; O2SAT 98
--- NOTE | 2025-02-27 17:36 | ED.URI ---
HPI - URI/Sore Throat General Chief Complaint: Upper Respiratory Infection Stated Complaint: Sore Throat/Ear Pain Time Seen by Provider: 02/27/25 17:00 Source: patient Mode of arrival: ambulatory Limitations: no limitations History of Present Illness HPI Narrative: Lisa is a 50-year-old female patient presenting to the clinic today with complaints of sore throat, feeling feverish, left ear pain, left-sided dental pain, and left maxillary sinus pain times 2-3 days. Reports she often gets sinus infections and ear infections. Reports she is blowing out thick green nasal drainage. Has a lot of dental pain and sinus tenderness. MD elicited complaint: sore throat and nasal congestion Related Data Home Medications ?Medication ?Instructions ?Recorded ?Confirmed ?Last Taken ?Type Lactobacillus 1 cap PO DAILY 07/25/22 12/08/24 Unknown History acidophilus-Bifidobac.animalis 2.5 billion cell capsule (Daily Probiotic) calcium carbonate (Calcium 600) 600 mg PO DAILY 07/25/22 12/08/24 Unknown History cetirizine 10 mg tablet (Zyrtec) 10 mg PO DAILY 07/25/22 12/08/24 Unknown History fluticasone propionate 50 1 spray intranasal DAILY 07/25/22 12/08/24 Unknown History mcg/actuation nasal spray,suspension cholecalciferol (vitamin D3) 1,250 01/22/25 Unknown History mcg (50,000 unit) capsule levothyroxine 112 mcg tablet mcg 01/22/25 Unknown History potassium chloride 20 mEq meq PO 01/22/25 Unknown History tablet,extended release Allergies Allergy/AdvReac Type Severity Reaction Status Date / Time ceftriaxone Allergy Unknown Hives Verified 02/27/25 17:07 hydrocodone Allergy Unknown Itching Verified 02/27/25 17:07 ketorolac Allergy Unknown Hives Verified 02/27/25 17:07 metronidazole Allergy Unknown Hives Verified 02/27/25 17:07 skin cleanser Allergy Unknown Hives Verified 02/27/25 17:07 tramadol Allergy Unknown Itching Verified 02/27/25 17:07 amoxicillin (From Augmentin) Allergy Hives Verified 02/27/25 17:07 clavulanic acid (From Allergy Hives Verified 02/27/25 17:07 Augmentin) levofloxacin Allergy Dyspnea / Verified 02/27/25 17:07 SOB Penicillins Allergy Hives Verified 02/27/25 17:07 Review of Systems Review of Systems: Pertinent positives per HPI. Patient denies any, rash, visual changes, dizziness, shortness of breath, chest pain, palpitations, nausea, vomiting, diarrhea, constipation, abdominal pain, or any urinary issues. [facility] Past Medical History Medical History Colon cancer screening Hyperthyroidism Surgical History Surgical History History of Achilles tendon repair History of back surgery History of tubal ligation History of thyroid surgery Family History Family History Other Asthma Family history of anemia Family history of osteoporosis Family history of thyroid disease Hypertension Social History Social History Smoking packs per day: 0.5 Smoking cigarettes per day: 10.0 Years smoked: 28 Smoking pack-years: 14.00 Smoking status: Former smoker Tobacco type: cigarettes Smoking end date: 03/05/18 Alcohol intake: current Drinks per week: 4 Substance use: never Substance use type: does not use Living arrangements: with family Gender identity (if verbalized by the patient): Female Sexual Orientation (if Verbalized by the Patient): Straight or Heterosexual Spiritual care concerns: No Comments At the time of my signature, I reviewed and agree with the nursing past medical, surgical, social, and family history. There is no relevant family history pertinent to the patient complaint. Exam Narrative: General: Well-developed, well nourished, in no apparent distress Head: Normocephalic, atraumatic Eyes: Pupils equally round and reactive to light bilaterally, EOM intact, sclera and conjunctive clear, no discharge, lids normal Ears: TMs intact and congested, ear canals clear, no drainage, grossly hearing normal. Nose: Nares patent, green nasal discharge, moderate inflammation, left ethmoid and maxillary sinus tenderness. Mouth: Oral pharynx red without lesions or masses, good dentition, MMM. Postnasal drip Neck: Supple, trachea midline, no enlargement of anterior or posterior cervical nodes, no thyroid masses or goiter palpable. Cardio: Regular rate and rhythm, s1 and s2 normal, no murmur appreciated. Resp: Clear to auscultation bilaterally, no rhonchi, rales, wheezing or rubs Course Course Level of Care: Express Care Visit Vital Signs Vital signs: Vital Signs Temperature 36.6 C 02/27/25 17:07 Pulse Rate 76 02/27/25 17:07 Respiratory Rate 16 02/27/25 17:07 Blood Pressure 111/73 02/27/25 17:07 Pulse Oximetry 98 02/27/25 17:07 Oxygen Delivery Room Air 02/27/25 17:07 Temperature 36.6 C 02/27/25 17:07 Pulse Rate 76 02/27/25 17:07 Respiratory Rate 16 02/27/25 17:07 Blood Pressure 111/73 02/27/25 17:07 Pulse Oximetry 98 02/27/25 17:07 Oxygen Delivery Room Air 02/27/25 17:07 MDM MDM Narrative Medical decision making narrative: At the time of visit patient is resting comfortably on the exam table. Patient appears to be nontoxic. complaints of sore throat, feeling feverish, left ear pain, left-sided dental pain, and left maxillary sinus pain times 2-3 days. Reports she often gets sinus infections and ear infections. Reports she is blowing out thick green nasal drainage. Has a lot of dental pain and sinus tenderness. On exam patient has bilateral TMs intact and congestion, green nasal drainage, moderate anterior turbinate inflammation, ethmoid and maxillary sinus tenderness on the left side, heart rates regular rate and rhythm, lung sounds are clear. Strep, COVID, and influenza testing were ordered. Labs: Strep, COVID, influenza testing were all negative in the clinic today. We will send strep for culture. Plan: I suspect patient has rhinosinusitis. Prescription for doxycycline and Mucinex was sent to the pharmacy. Supportive measures were discussed with the patient and they voiced understanding discharge instructions and agrees to treatment plan. Return precautions reviewed Differential Diagnosis Differential Diagnosis: Differential diagnostic considerations for upper respiratory infection include upper respiratory infection, croup, otitis media, sinusitis, viral infection, bronchitis, influenza, pharyngitis, strep, uvulitis. Discharge Plan Discharge Clinical Impression: Acute bacterial rhinosinusitis Patient Disposition: Home Condition: Stable Instructions: Antibiotic Form, Rhinosinusitis (ED) Additional Instructions: COVID, flu, and strep test were all negative in the clinic today. We will send strep for culture. Increase fluids and stay well hydrated May take Tylenol or motrin as directed on bottle for pain/fever May use Flonase 1 spray in each nare daily May take OTC antihistamines such as Zyrtec or Claritin daily as directed on bottle May apply Vicks vapor rub to chest to open sinuses Sinus rinses for congestion Cepacol spray, cough drops, throat lozenges, warm tea with honey/lemon, gargle salt water to soothe throat BRAT diet for diarrhea Clear liquids x 24 hours then advance as tolerated for nausea/vomiting Go to the ED if you develop a worsening in your condition- high fever not controlled by Tylenol or Motrin, dehydration, weakness, lethargy, shortness of breath, or chest pain. Follow up with your PCP in 3-5 days if symptoms persist. Patient Language: American Prescriptions: New guaifenesin [Mucinex] 600 mg tablet extended release 12hr 600 mg PO BID PRN (Reason: congestion) 7 Days Qty: 14 0RF doxycycline monohydrate 100 mg capsule 100 mg PO BID 7 Days Qty: 14 0RF No Action levothyroxine 112 mcg tablet cholecalciferol (vitamin D3) 1,250 mcg (50,000 unit) capsule potassium chloride 20 mEq tablet extended release PO cetirizine [Zyrtec] 10 mg Tablet 10 mg PO DAILY calcium carbonate [Calcium 600] 600 mg calcium (1,500 mg) Tablet 600 mg PO DAILY fluticasone propionate 50 mcg/actuation [place],Suspension 1 spray INTRANASAL DAILY Rx Instructions: administer into each nostril Daily Probiotic 2.5 billion cell Capsule 1 cap PO DAILY estradiol 0.0375 mg/24 hr patch semiweekly See Rx Instructions .ROUTE .COMPLEX Qty: 25 3RF Dose Instruction: APPLY 1 PATCH TOPICALLY TO THE SKIN 2 TIMES A WEEK Rx Instructions: APPLY 1 PATCH TOPICALLY TO THE SKIN 2 TIMES A WEEK progesterone micronized 100 mg capsule 100 mg PO QHS Qty: 90 1RF Follow-up/Referrals: PHYSICIAN NOT ON STAFF,NONSTAFF [Primary Care Provider] Time of Disposition: 17:38 Quality NIHSS Nursing Documentation ED NIHSS nursing documentation: reviewed/agree
[2025-02-27 17:50] LABS: EDCOVIDSCREEN Negative (Negative); EDINFLUASCREEN Negative (Negative); EDINFLUBSCREEN Negative (Negative); EDSTREPNEGPOS1 Negative (Negative)
== END 2025-02-27 17:51 | disposition home or self-care (01) ==
PROVIDERS: Emergency Provider Nurse Practitioner Family
DX: J01.90 Acute sinusitis, unspecified (principal); Z20.822 Contact with and (suspected) exposure to COVID-19; E05.90 Thyrotoxicosis, unspecified without thyrotoxic crisis or storm; Z87.891 Personal history of nicotine dependence
CPT/HCPCS: 87081; 87426; 87804; 87880; 99213; G0463